=== PATIENT | male | born 1935 | race Caucasian/White ===

== ENCOUNTER → 2016-11-21 | Outpatient (CLI) | payer BC ==
[~2016-11-21] MED LIST: ACYC-147 PO; ASPI81TA28 PO; ATV/1 PO; BENA20TA PO; BIMA0.01 OPB; CETI10TA84 PO; ECON0.05 TOP; NAPR220T40 PO; PANT40TA PO; TADA20TA PO
--- NOTE | 2016-11-21 09:06 | DIAGNOSTIC IMAGING REPORT ---
ABDOMEN COMPLETE (US) CLINICAL HISTORY: 81 years-old Male with NAUSEA, WEIGHT LOSS. TECHNIQUE: Multiple real time sonographic images of the abdomen were obtained assessing mcallister-scale appearance. COMPARISON: CT abdomen and pelvis 04/28/2008. FINDINGS: PANCREAS: The pancreas is partially obscured by bowel gas. The visualized portions of the pancreas are normal without focal lesion or pancreatic duct dilatation. LIVER: 2 separate cysts or alternatively a cyst with thin internal septations is seen within the left lobe of liver, 2.1 x 1.4 x 1.4 cm with increased through transmission. Multiple cysts were also seen within the liver on comparison study 04/28/2008. Liver otherwise appears unremarkable . There is no ascites. GALLBLADDER: There is minimal layering sludge within the gallbladder lumen. Echogenic nonshadowing focus along the dependent gallbladder wall is seen, 0.2 cm. No gallbladder wall thickening or pericholecystic fluid. The common bile duct measures 0.3 cm. RIGHT KIDNEY: The right kidney measures 10.5 cm. There is mild lobulation and increased echogenicity of the kidney. There is a 0.8 cm slightly exophytic cyst of the superior pole right kidney. Similar-appearing lesion is seen within the inferior pole, 1.0 cm. No nephrolithiasis or hydronephrosis. LEFT KIDNEY: The left kidney measures 10.3 cm. There is mild lobulation and increased echogenicity of the kidney. 0.4 cm slightly exophytic cyst of the interpolar left kidney is noted. No nephrolithiasis or hydronephrosis. SPLEEN: The spleen measures 14.0 cm and is normal in echotexture. No focal lesions are identified. VASCULATURE: Proximal abdominal aorta measures 2.2 cm. Mid abdominal aorta measures 1.8 cm. Distal abdominal aorta measures 1.7 cm. No abdominal aortic aneurysm identified. There is mild atherosclerotic plaquing at the aortic bifurcation. IVC is patent. IMPRESSION: 1. Mild layering gallbladder sludge with 2 mm echogenic non-shadowing focus along the dependent gallbladder wall suggests a small stone or gallbladder polyp. No sonographic evidence of acute cholecystitis. 2. No biliary ductal dilatation. 3. Redemonstration of hepatic cysts. 4. Mild splenomegaly. The above report was generated using voice recognition software. It may contain grammatical, syntax or spelling errors. Electronically signed by: Garcia Yanez M.D. 11/21/2016 9:05 AM Dictated Date/Time: 11/21/2016 8:57 AM
== END | disposition home or self-care (01) ==
LOC: C.ULTRBC 08:05
PROVIDERS: ATTEND Family Medicine
DX: R10.9 Unspecified abdominal pain (principal); K22.70 Barrett's esophagus without dysplasia; D50.9 Iron deficiency anemia, unspecified

== ENCOUNTER → 2017-08-06 | Outpatient (CLI) | payer BC ==
--- NOTE | 2017-08-06 15:01 | DIAGNOSTIC IMAGING REPORT ---
TWO VIEW CHEST CLINICAL HISTORY: Fatigue. Weight loss. FINDINGS: PA and lateral chest radiographs are compared to study dated 06/24/2013. The heart is top normal for projection and there is atherosclerotic calcification of the thoracic aorta. The pulmonary vasculature is noncongested. Chronic interstitial thickening is similar to previous. Bibasilar scarring versus atelectasis is noted. No airspace consolidation or pleural effusion is identified. There is no pneumothorax. The skeletal structures are osteopenic. Degenerative change is seen throughout the thoracic spine. IMPRESSION: No active disease in the chest. Electronically signed by: Alfonso Duke M.D. 08/06/2017 3:00 PM Dictated Date/Time: 08/06/2017 2:59 PM
[2017-08-06 15:32] LABS: HEMATOCRIT 45.6 % (42-52); HEMOGLOBIN 15.9 g/dL (14.0-18.0); MEAN CELL VOLUME 97.4 fL (80-100); MEAN CORPUSCULAR HGB CONC 34.9 g/dl (32-36); MEAN PLATELET VOLUME 11.2 fL (7.4-10.4); PLATELET COUNT 110 K/uL (130-400); RED CELL DISTRIBUTION WIDTH CV 14.1 % (11.5-14.5); RED CELL DISTRIBUTION WIDTH SD 50.6 fL (36.4-46.3); WHITE BLOOD COUNT 6.44 K/uL (4.8-10.8)
[2017-08-06 15:53] LABS: ALBUMIN 3.1 gm/dl (3.4-5.0); ALT/SGPT 31 U/L (12-78); AST/SGOT 28 U/L (15-37); BLOOD UREA NITROGEN 37 mg/dl (7-18); CALCIUM 8.6 mg/dl (8.5-10.1); CARBON DIOXIDE 20 mmol/L (21-32); CREATININE 1.88 mg/dl (0.60-1.40); GLUCOSE 187 mg/dl (70-99); POTASSIUM 4.6 mmol/L (3.5-5.1); SODIUM 138 mmol/L (136-145)
[2017-08-06 15:56] LABS: ALKALINE PHOSPHATASE 105 U/L (45-117); TOTAL PROTEIN 6.6 gm/dl (6.4-8.2)
== END | disposition home or self-care (01) ==
LOC: C.RAD 14:22
PROVIDERS: ATTEND Family Medicine
DX: R53.83 Other fatigue (principal); R63.4 Abnormal weight loss

== ENCOUNTER 2017-08-20 12:22 | Emergency (ER) | payer BC ==
[~2017-08-20] VITALS: Ht 175.3 cm; Wt 80.0 kg
[2017-08-20] MEDS ORDERED: SODIUM CHLORIDE 0.9% 1000ML 1,000 ML IV STA (12:30)
[2017-08-20 12:31] VITALS: TEMP 36.7; Ht 175.3 cm; Wt 80.0 kg
[2017-08-20] MEDS ORDERED: KETO2SHA TOP (12:49)
[2017-08-20] MEDS ORDERED: ACYC400T PO (12:49)
[2017-08-20] MEDS ORDERED: BENA20TA14 PO (12:49)
[2017-08-20] MEDS ORDERED: CARI350T28 PO (12:49)
[2017-08-20 13:18] LABS: BASO % 0.1 %; BASO ABS # 0.01 K/uL (0-0.2); EOS % 2.6 %; HEMATOCRIT 40.4 % (42-52); HEMOGLOBIN 13.8 g/dL (14.0-18.0); IG# 0.01 K/uL (0.00-0.02); LYMPH % 10.4 %; MEAN CELL VOLUME 97.3 fL (80-100); MEAN CORPUSCULAR HEMOGLOBIN 33.3 pg (25-34); MEAN CORPUSCULAR HGB CONC 34.2 g/dl (32-36); MEAN PLATELET VOLUME 10.4 fL (7.4-10.4); MONO % 8.5 %; MONO ABS # 0.65 K/uL (0.11-0.59); NEUT % 78.3 %; NEUT ABS # 6.02 K/uL (1.4-6.5); PLATELET COUNT 112 K/uL (130-400); RED CELL DISTRIBUTION WIDTH CV 13.8 % (11.5-14.5); RED CELL DISTRIBUTION WIDTH SD 49.4 fL (36.4-46.3); WHITE BLOOD COUNT 7.69 K/uL (4.8-10.8)
--- NOTE | 2017-08-20 13:30 | EMERGENCY ROOM VISIT NOTE ---
History Report prepared by Olivia: Matthew Healy Under the Supervision of: Dr. Micah Patel M.D. First contact with patient: 12:27 Stated Complaint: DIARRHEA/ BP MED ISSUE History of Present Illness The patient is a 81 year old male who presents to the Emergency Room via ambulance with complaints of intermittent diarrhea for the past couple of months. Patient states that he typically takes Imodium to relieve his diarrhea. He states that he took 4 Imodium today but it did not relieve the symptoms. He states that he typically has "2-3" episodes of diarrhea a day. He describes the stool as "clear and not bloody". He states that Imodium "stops the diarrhea for a day but then it starts up again". He states today he has had "constant diarrhea". He adds that he did not soil himself today. He states that he drank an Ensure this morning. Patient adds that his blood pressure has been low recently. Patient states that he came to the ER via ambulance because he was shaky this morning. 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 Patient states that he has been eating "some fruits and vegetables". He denies any recent use of antibiotics. He denies using blood thinners. Patient states that his PCP is Dr. Taylor. Pertinent past medical history includes arthritis. Patient states that he had a Chest X-Ray done a couple of weeks ago due to a loss of appetite. He states that it came back "normal". He adds that he a blood test done on that same visit that was "normal but showed low platelets". Patient denies abdominal pain, lightheadedness, chest pain, shortness of breath, fevers, chills, cough, and congestions. Source of History: patient Onset: Past couple of months Position: other (Rectum) Timing: intermittent Associated Symptoms: No fevers, No chills, No cough, No chest pain, No SOB, No abdominal pain Review of Systems See HPI for pertinent positives and negatives. A total of ten systems were reviewed and were otherwise negative. Past Medical & Surgical Medical Problems: (1) Blackwell esophagus (2) Celiac disease (3) GERD (gastroesophageal reflux disease) (4) HTN (hypertension) (5) Neuropathy Family History Diabetes mellitus FH: cancer FH: gallbladder disease FH: heart disease Hypertension Social History Smoking Status: Former Smoker Alcohol Use: occasionally Drug Use: none Marital Status: Housing Status: lives with significant other Occupation Status: retired Current/Historical Medications Scheduled Acyclovir (Acyclovir), 400 MG PO DAILY Aspirin (Aspirin Ec), 81 MG PO DAILY Benazepril (Lotensin), 20 MG PO BID Bimatoprost (Lumigan), 1 DROP OPB HS Carisoprodol (Soma), 700 MG PO HS Cetirizine (Zyrtec), 10 MG PO DAILY Ketoconazole (Topical) (Ketoconazole), 1 APPLN TOP BID Lorazepam (Ativan), 1 MG PO QID Naproxen Sodium (Aleve), 220 MG PO BID Pantoprazole (Protonix), 40 MG PO DAILY Allergies Coded Allergies: Gluten (Unverified Allergy, Severe, GI SYMPTOMS, 08/20/17) Pt has celiac disease. Gabapentin (Unverified Allergy, Unknown, loopy, 08/20/17) Physical Exam Vital Signs Date Time Temp Pulse Resp B/P (MAP) Pulse Ox O2 Delivery O2 Flow Rate FiO2 08/20/17 17:42 87 18 96/65 97 08/20/17 16:30 79 18 131/66 96 Room Air 08/20/17 14:33 88 16 103/74 94 Room Air 08/20/17 13:50 86 16 103/64 96 Room Air 08/20/17 12:38 104 08/20/17 12:31 36.7 103 16 95/56 93 Room Air Physical Exam GENERAL: Awake, alert, fatigue-appearing, in no distress HENT: Normocephalic, atraumatic. Oropharynx unremarkable other than dry mucous membranes. EYES: Normal conjunctiva. Sclera non-icteric. NECK: Supple. No nuchal rigidity. FROM. No JVD. RESPIRATORY: Clear to auscultation. CARDIAC: Regular rate, normal rhythm. Extremities warm and well perfused. Pulses equal. ABDOMEN: Soft, non-distended. No tenderness to palpation. No rebound or guarding. No masses. RECTAL: Deferred. MUSCULOSKELETAL: Chest examination reveals no tenderness. The back is symmetrical on inspection without obvious abnormality. There is no CVA tenderness to palpation. No joint edema. LOWER EXTREMITIES: Calves are equal size bilaterally and non-tender. No edema. No discoloration. NEURO: Normal sensorium. No sensory or motor deficits noted. Normal cerebellar function with [id number], alternating palms, [id number]. SKIN: No rash or jaundice noted. Medical Decision & Procedures ER Provider Diagnostic Interpretation: Radiology results as stated below per my review and radiologist interpretation: CHEST ONE VIEW PORTABLE CLINICAL HISTORY: weakness dyspnea COMPARISON STUDY: 08/06/2017 FINDINGS: Atelectasis versus infiltrate left base. Slight interstitial prominence right base. Lungs otherwise appear clear. IMPRESSION: Atelectasis versus infiltrate left base. Chronic interstitial change right base. The above report was generated using voice recognition software. It may contain grammatical, syntax or spelling errors. Electronically signed by: Linus King M.D. 08/20/2017 1:41 PM ABD/PELVIS NO IV OR ORAL CONT CLINICAL HISTORY: 81 years-old Male presenting with diarrhea for months, abd pain. TECHNIQUE: Multidetector CT of the abdomen and pelvis was performed without the use of intravenous contrast. IV contrast: None. A dose lowering technique was used consistent with the principles of ALARA (as low as reasonably achievable). COMPARISON: 04/28/2008. CT DOSE (mGy.cm): The estimated cumulative dose is 816.36 mGycm. 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 Lung bases: Reticular and bandlike opacities primarily in a dependent distribution at the lung bases increased from prior, possibly atelectasis or scarring. Partially visualized minimal patchy groundglass opacity in the lingula (series 3 image 1). Normal heart size. Coronary artery and aortic valve calcification. No pericardial or pleural effusion. Liver: Normal morphology. Borderline hepatic steatosis by density well-defined hypodense multilobular lesion in the hypoplastic medial left hepatic lobe, indeterminate but likely hepatic cyst or hamartoma. 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 Biliary: No gross biliary ductal dilatation allowing for noncontrast technique. Normal gallbladder. Physiologic distention of the gallbladder. Pancreas: Moderate parenchymal atrophy. Spleen: Normal noncontrast appearance. Adrenal glands: Normal noncontrast appearance. Kidneys and ureters: Multiple hypodensities in the kidneys, indeterminate but likely cysts. Punctate nonobstructing calculus in the left kidney. No hydronephrosis. Minimal nonspecific perinephric fat stranding. Nonobstructing 5 mm calculus in the distal left ureter (series 3 image 348). Bladder: Normal. Pelvic organs: Prostate enlargement likely secondary to benign prostatic hyperplasia. Bowel: Diverticulosis of the proximal sigmoid colon. No significant wall thickening or pericolonic inflammatory change. Diverticula also noted in the descending colon. Fluid in the colon suggests a diarrheal state. Fluid also noted throughout the small bowel. No bowel obstruction. Duodenal diverticulum noted in the descending portion. Peritoneal cavity: No free fluid or intraperitoneal gas. Lymph nodes: No gross lymphadenopathy allowing for noncontrast technique. Vasculature: Atherosclerosis of the normal caliber abdominal aorta. Abdominal wall: Normal. Musculoskeletal: Degenerative changes of the spine. IMPRESSION: 1. Fluid throughout small bowel and colon could suggest a diarrheal state. No evidence of bowel wall thickening or significant inflammatory change allowing for noncontrast technique. The appearance is nonspecific without additional findings. This can be seen in the setting of a nonspecific enteritis, a protein losing enteropathy, celiac disease, or Whipple's disease among other etiologies. 2. Diverticulosis. No evidence of diverticulitis. 3. Nonobstructing 5 mm calculus in the distal left ureter. 4. Additional punctate nonobstructing left renal calculus. 5. Minimal patchy groundglass infiltrates in the lingula, only partially visualized. An infectious etiology is difficult to exclude. 6. Bibasilar atelectasis or scarring suspected. Electronically signed by: Richardson Coles M.D. 08/20/2017 4:56 PM Laboratory Results 08/20/17 13:05 Red Blood Count 4.15, Mean Corpuscular Volume 97.3, Mean Corpuscular Hemoglobin 33.3, Mean Corpuscular Hemoglobin Concent 34.2, Mean Platelet Volume 10.4, Neutrophils (%) (Auto) 78.3, Lymphocytes (%) (Auto) 10.4, Monocytes (%) (Auto) 8.5, Eosinophils (%) (Auto) 2.6, Basophils (%) (Auto) 0.1, Neutrophils # (Auto) 6.02, Lymphocytes # (Auto) 0.80, Monocytes # (Auto) 0.65, Eosinophils # (Auto) 0.20, Basophils # (Auto) 0.01 08/20/17 13:05 Test 08/20/17 12:40 08/20/17 13:05 08/20/17 16:50 Influenza Type A (RT-PCR) Neg for Influ A (NEG) Influenza Type B (RT-PCR) Neg for Influ B (NEG) White Blood Count 7.69 K/uL (4.8-10.8) Red Blood Count 4.15 M/uL (4.7-6.1) Hemoglobin 13.8 g/dL (14.0-18.0) Hematocrit 40.4 % (42-52) Mean Corpuscular Volume 97.3 fL (80-100) Mean Corpuscular Hemoglobin 33.3 pg (25-34) Mean Corpuscular Hemoglobin Concent 34.2 g/dl (32-36) Platelet Count 112 K/uL (130-400) Mean Platelet Volume 10.4 fL (7.4-10.4) Neutrophils (%) (Auto) 78.3 % Lymphocytes (%) (Auto) 10.4 % Monocytes (%) (Auto) 8.5 % Eosinophils (%) (Auto) 2.6 % Basophils (%) (Auto) 0.1 % Neutrophils # (Auto) 6.02 K/uL (1.4-6.5) Lymphocytes # (Auto) 0.80 K/uL (1.2-3.4) Monocytes # (Auto) 0.65 K/uL (0.11-0.59) Eosinophils # (Auto) 0.20 K/uL (0-0.5) Basophils # (Auto) 0.01 K/uL (0-0.2) RDW Standard Deviation 49.4 fL (36.4-46.3) RDW Coefficient of Variation 13.8 % (11.5-14.5) Immature Granulocyte % (Auto) 0.1 % Immature Granulocyte # (Auto) 0.01 K/uL (0.00-0.02) Erythrocyte Sedimentation Rate 21 mm/hr (0-14) Anion Gap 6.0 mmol/L (3-11) Est Creatinine Clear Calc Drug Dose 23.9 ml/min Estimated GFR () 28.7 Estimated GFR (Non- 24.8 BUN/Creatinine Ratio 18.8 (10-20) Lactic Acid Level 1.6 mmol/L (0.4-2.0) Calcium Level 8.5 mg/dl (8.5-10.1) Phosphorus Level 3.6 mg/dl (2.5-4.9) Magnesium Level 1.8 mg/dl (1.8-2.4) Total Bilirubin 0.6 mg/dl (0.2-1) Direct Bilirubin 0.2 mg/dl (0-0.2) Aspartate Amino Transf (AST/SGOT) 21 U/L (15-37) Alanine Aminotransferase (ALT/SGPT) 23 U/L (12-78) Alkaline Phosphatase 93 U/L (45-117) Troponin I < 0.015 ng/ml (0-0.045) C-Reactive Protein 7.89 mg/dl (0-0.29) Total Protein 6.0 gm/dl (6.4-8.2) Albumin 2.6 gm/dl (3.4-5.0) Lipase 41 U/L (73-393) Urine Color DK YELLOW Urine Appearance CLEAR (CLEAR) Urine pH 5.0 (4.5-7.5) Urine Specific [place] 1.020 (1.000-1.030) Urine Protein NEG (NEG) Urine Glucose (UA) NEG (NEG) Urine Ketones NEG (NEG) Urine Occult Blood NEG (NEG) Urine Nitrite NEG (NEG) Urine Bilirubin NEG (NEG) Urine Urobilinogen NEG (NEG) Urine Leukocyte Esterase NEG (NEG) Date/Time Source Procedure Growth Status 08/20/17 16:50 Stool C.difficile Toxin B Gene (PCR) - Final No C. difficile toxin B gene detected Complete Laboratory results reviewed by me Medications Administered Medications (Trade) Dose Ordered Sig/Pramod Route Start Time Stop Time Status Last Admin Dose Admin Sodium Chloride 1,000 ml @ 999 mls/hr Q1H1M STAT IV 08/20/17 12:30 08/20/17 13:30 DC 08/20/17 12:50 999 MLS/HR ECG Per My Interpretation Indication: tachycardia Rate (beats per minute): 101 Rhythm: sinus tachycardia Findings: PAC, no acute ischemic change, other (Left anterior ventricular block ) ED Course 1228: The patient was evaluated in room B6. A complete history and physical exam was performed. 1421: I reassessed the patient. He states that he is feeling better. 1943: I reevaluated the patient. Discussed results and discharge instructions. He verbalized understanding and agreement. The patient is ready for discharge. Medical Decision I reviewed the patient's past medical history, medications, and the nursing notes as described above. Differential diagnosis: Etiologies such as metabolic, infection, hypo/hyperglycemia, electrolyte abnormalities, cardiac sources, intracerebral event, toxicologic, neurologic, as well as others were entertained. The patient is an 81-year-old gentleman who presents to emergency department with diarrhea ongoing for the past couple of months per hpi. On arrival the patient is fatigued appearing but no acute distress, afebrile with stable vital signs. EKG unremarkable. WBC and lactate within normal limits. Creatinine 2.3 up from 1.8 in July consistent with dehydration. ESR and CRP elevated however nonspecific. CT abdomen pelvis demonstrates findings consistent with enteritis. Otherwise, there is a 5 mm nonobstructing ureteral calculus. Patient has no symptoms related to this. UA negative. Patient given IV fluid hydrations and feeling improved. No further episodes of diarrhea while in the emergency department. Patient feeling improved and prefers discharge. Thus plan for close follow-up for repeat BMP. Findings and plan for follow-up reviewed with patient. Patient agreeable and d/c'd per discharge instructions. Medication Reconcilliation Current Medication List: was personally reviewed by me Blood Pressure Screening Patient's blood pressure: Normal blood pressure Blood pressure disposition: Did not require urgent referral Impression Primary Impression: Diarrhea Additional Impressions: Acute on chronic renal insufficiency Dehydration Scribe Attestation The scribe's documentation has been prepared under my direction and personally reviewed by me in its entirety. I confirm that the note above accurately reflects all work, treatment, procedures, and medical decision making performed by me. Departure Information Dispostion Home / Self-Care Referrals Roque Taylor M.D. (PCP) Forms HOME CARE DOCUMENTATION FORM, IMPORTANT VISIT INFORMATION, WORK / SCHOOL INSTRUCTIONS Patient Instructions ED Dehydration, ED Insufficiency Renal, ED Vomiting Diarrhea Nonspecific Ad, My [facility] Additional Instructions Please follow up with your primary care physician in the next 1-3 days for re- evaluation and to repeat your kidney function tests. You were found to have mild dehydration likely due to your chronic diarrhea. Otherwise, your exam, EKG, chest xray, and lab results did not show signs of an emergent condition at this time. Imodium as needed for persistent diarrhea. Minimize your fiber intake. Drink plenty of fluids to ensure hydration. Return to the emergency department for worsening symptoms as described in the accompanying instructions. Problem Qualifiers
[2017-08-20 13:37] LABS: ALBUMIN 2.6 gm/dl (3.4-5.0); ALT/SGPT 23 U/L (12-78); AST/SGOT 21 U/L (15-37); BLOOD UREA NITROGEN 44 mg/dl (7-18); CALCIUM 8.5 mg/dl (8.5-10.1); CARBON DIOXIDE 20 mmol/L (21-32); CREATININE 2.34 mg/dl (0.60-1.40); GLUCOSE 167 mg/dl (70-99); LIPASE 41 U/L (73-393); POTASSIUM 5.3 mmol/L (3.5-5.1); SODIUM 139 mmol/L (136-145)
[2017-08-20 13:40] LABS: ALKALINE PHOSPHATASE 93 U/L (45-117); PHOSPHORUS 3.6 mg/dl (2.5-4.9)
--- NOTE | 2017-08-20 13:42 | DIAGNOSTIC IMAGING REPORT ---
CHEST ONE VIEW PORTABLE CLINICAL HISTORY: weakness dyspnea COMPARISON STUDY: 08/06/2017 FINDINGS: Atelectasis versus infiltrate left base. Slight interstitial prominence right base. Lungs otherwise appear clear. IMPRESSION: Atelectasis versus infiltrate left base. Chronic interstitial change right base. The above report was generated using voice recognition software. It may contain grammatical, syntax or spelling errors. Electronically signed by: Linus King M.D. 08/20/2017 1:41 PM Dictated Date/Time: 08/20/2017 1:40 PM
[2017-08-20 14:01] LABS: INFLUENZA A PCR Neg for Influ A (NEG); INFLUENZA B PCR Neg for Influ B (NEG)
--- NOTE | 2017-08-20 16:57 | DIAGNOSTIC IMAGING REPORT ---
ABD/PELVIS NO IV OR ORAL CONT CLINICAL HISTORY: 81 years-old Male presenting with diarrhea for months, abd pain. TECHNIQUE: Multidetector CT of the abdomen and pelvis was performed without the use of intravenous contrast. IV contrast: None. A dose lowering technique was used consistent with the principles of ALARA (as low as reasonably achievable). COMPARISON: 04/28/2008. CT DOSE (mGy.cm): The estimated cumulative dose is 816.36 mGycm. 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 Lung bases: Reticular and bandlike opacities primarily in a dependent distribution at the lung bases increased from prior, possibly atelectasis or scarring. Partially visualized minimal patchy groundglass opacity in the lingula (series 3 image 1). Normal heart size. Coronary artery and aortic valve calcification. No pericardial or pleural effusion. Liver: Normal morphology. Borderline hepatic steatosis by density well-defined hypodense multilobular lesion in the hypoplastic medial left hepatic lobe, indeterminate but likely hepatic cyst or hamartoma. 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 Biliary: No gross biliary ductal dilatation allowing for noncontrast technique. Normal gallbladder. Physiologic distention of the gallbladder. Pancreas: Moderate parenchymal atrophy. Spleen: Normal noncontrast appearance. Adrenal glands: Normal noncontrast appearance. Kidneys and ureters: Multiple hypodensities in the kidneys, indeterminate but likely cysts. Punctate nonobstructing calculus in the left kidney. No hydronephrosis. Minimal nonspecific perinephric fat stranding. Nonobstructing 5 mm calculus in the distal left ureter (series 3 image 348). Bladder: Normal. Pelvic organs: Prostate enlargement likely secondary to benign prostatic hyperplasia. Bowel: Diverticulosis of the proximal sigmoid colon. No significant wall thickening or pericolonic inflammatory change. Diverticula also noted in the descending colon. Fluid in the colon suggests a diarrheal state. Fluid also noted throughout the small bowel. No bowel obstruction. Duodenal diverticulum noted in the descending portion. Peritoneal cavity: No free fluid or intraperitoneal gas. Lymph nodes: No gross lymphadenopathy allowing for noncontrast technique. Vasculature: Atherosclerosis of the normal caliber abdominal aorta. Abdominal wall: Normal. Musculoskeletal: Degenerative changes of the spine. IMPRESSION: 1. Fluid throughout small bowel and colon could suggest a diarrheal state. No evidence of bowel wall thickening or significant inflammatory change allowing for noncontrast technique. The appearance is nonspecific without additional findings. This can be seen in the setting of a nonspecific enteritis, a protein losing enteropathy, celiac disease, or Whipple's disease among other etiologies. 2. Diverticulosis. No evidence of diverticulitis. 3. Nonobstructing 5 mm calculus in the distal left ureter. 4. Additional punctate nonobstructing left renal calculus. 5. Minimal patchy groundglass infiltrates in the lingula, only partially visualized. An infectious etiology is difficult to exclude. 6. Bibasilar atelectasis or scarring suspected. Electronically signed by: Richardson Coles M.D. 08/20/2017 4:56 PM Dictated Date/Time: 08/20/2017 4:42 PM
[2017-08-20 17:42] VITALS: BP 96/65; PULSE 87; O2SAT 97
== END 2017-08-20 17:42 | disposition home or self-care (01) ==
LOC: EDBD 12:26 → C.EDB 12:27
DX: R19.7 Diarrhea, unspecified (principal); N18.9 Chronic kidney disease, unspecified; E86.0 Dehydration; K21.9 Gastro-esophageal reflux disease without esophagitis; K90.0 Celiac disease; I12.9 Hypertensive chronic kidney disease with stage 1 through stage 4 chronic kidney disease, or unspecified chronic kidney disease; G62.9 Polyneuropathy, unspecified; Z87.891 Personal history of nicotine dependence; Z79.82 Long term (current) use of aspirin; Z79.899 Other long term (current) drug therapy; Z88.8 Allergy status to other drugs, medicaments and biological substances; Z91.018 Allergy to other foods

== ENCOUNTER 2017-12-04 15:43 | Emergency (ER) | payer BC ==
[~2017-12-04] VITALS: Ht 172.7 cm; Wt 76.9 kg
[~2017-12-04 15:43] MED LIST changes: -ACYC-147 PO; +ACYC400T PO; -BENA20TA PO; +BENA20TA14 PO; +CARI350T28 PO; -ECON0.05 TOP; +KETO2SHA TOP; -TADA20TA PO
[2017-12-04 15:45] VITALS: TEMP 36.6; O2SAT 93; Ht 172.7 cm; Wt 76.9 kg
--- NOTE | 2017-12-04 17:03 | DIAGNOSTIC IMAGING REPORT ---
CHEST ONE VIEW PORTABLE CLINICAL HISTORY: weakness COMPARISON STUDY: 08/20/2017 FINDINGS: The heart is normal in size. There are linear by basilar opacities consistent with subsegmental atelectasis. There is no overt failure. There are no pleural effusions.[ IMPRESSION: Moderately extensive bibasilar subsegmental atelectatic changes Electronically signed by: Amor Escobar M.D. 12/04/2017 5:02 PM Dictated Date/Time: 12/04/2017 5:01 PM
[2017-12-04] MEDS ORDERED: SODIUM CHLORIDE 0.9% 500ML 500 ML IV STA ×2 (17:22→18:10)
[2017-12-04 17:26] LABS: ALBUMIN 1.8 gm/dl (3.4-5.0); ALKALINE PHOSPHATASE 136 U/L (45-117); ALT/SGPT 24 U/L (12-78); AST/SGOT 24 U/L (15-37); BLOOD UREA NITROGEN 30 mg/dl (7-18); CALCIUM 7.9 mg/dl (8.5-10.1); CARBON DIOXIDE 24 mmol/L (21-32); CKMB < 1.0 ng/ml (0.5-3.6); CREATININE 1.27 mg/dl (0.60-1.40); GLUCOSE 154 mg/dl (70-99); POTASSIUM 3.9 mmol/L (3.5-5.1); SODIUM 140 mmol/L (136-145)
--- NOTE | 2017-12-04 17:36 | EMERGENCY ROOM VISIT NOTE ---
History Report prepared by Olivia: Valente Freeman Under the Supervision of: Dr. Mike Feliciano M.D. First contact with patient: 16:59 Chief Complaint: WEAKNESS Stated Complaint: TIRED/FATIGUE History of Present Illness The patient is an 82 year old white male with a past medical history of Blackwell' s esophagus, celiac disease, GERD, HTN, neuropathy who presents to the ED with a cc of worsening weakness to his legs beginning a week ago. Positive decreased appetite, trouble swallowing, dry cough, mild ankle swelling. Negative trouble moving his arms, headache, back pain, trouble seeing or hearing, decreased sensation to legs or groin, a history of cancer, nausea, difficulty moving his bowels or urinating. Pt states a history of neuropathy for several years now. He reports he is losing muscle mass in his legs secondary to nerve damage. Pt notes he has been trying to use his legs more. He states for the past week he is too weak to walk. Pt reports he has a decreased appetite and has trouble swallowing solid foods. He notes he has lost 40 pounds over the past few months. Pt reports he followed up with his PCP and neurologist. Pt states a dry cough this week with mild ankle swelling. He reports he quit smoking 51 years ago. Review of EMR states the patient had a recent CT in August; it was unremarkable. Source of History: patient Onset: a week ago Position: leg (bilateral) Quality: other (weakness) Timing: worsening Associated Symptoms: + cough (dry), No headache, No nausea, No back pain Note: Positive decreased appetite, trouble swallowing, mild ankle swelling Negative trouble moving his arms, trouble seeing or hearing, decreased sensation to legs or groin, a history of cancer, difficulty moving his bowels or urinating. Review of Systems See HPI for pertinent positives and negatives. A total of ten systems were reviewed and were otherwise negative. Past Medical & Surgical Medical Problems: (1) Blackwell esophagus (2) Celiac disease (3) GERD (gastroesophageal reflux disease) (4) HTN (hypertension) (5) Neuropathy Family History Diabetes mellitus FH: cancer FH: gallbladder disease FH: heart disease Hypertension Social History Smoking Status: Former Smoker Alcohol Use: occasionally Drug Use: none Marital Status: Housing Status: lives with significant other Occupation Status: retired Current/Historical Medications Scheduled Acyclovir (Acyclovir), 400 MG PO DAILY Aspirin (Aspirin Ec), 81 MG PO DAILY Bimatoprost (Lumigan), 1 DROP OPB HS Carisoprodol (Soma), 700 MG PO HS Cetirizine (Zyrtec), 10 MG PO DAILY Ketoconazole (Topical) (Ketoconazole), 1 APPLN TOP BID Lorazepam (Ativan), 1 MG PO QID Naproxen Sodium (Aleve), 440 MG PO BID Pantoprazole (Protonix), 40 MG PO BID Allergies Coded Allergies: Gluten (Unverified Allergy, Severe, GI SYMPTOMS, 12/04/17) Pt has celiac disease. Gabapentin (Unverified Allergy, Unknown, loopy, 12/04/17) Physical Exam Vital Signs Date Time Temp Pulse Resp B/P (MAP) Pulse Ox O2 Delivery O2 Flow Rate FiO2 12/04/17 19:51 85 14 115/72 94 12/04/17 18:30 88 20 106/68 95 Room Air 12/04/17 17:35 93 18 97/64 95 Room Air 12/04/17 16:06 97 12/04/17 15:45 36.6 76 18 111/61 93 Room Air 12/04/17 15:45 93 Room Air Physical Exam GENERAL: Awake, alert, thin-appearing, NAD. Wearing glasses HENT: Normocephalic, atraumatic. EYES: Normal conjunctiva. Sclera non-icteric. PERRL. No anisocoria. NECK: Supple. No nuchal rigidity. FROM. RESPIRATORY: CTAB, no rhonchi, wheezing, crackles CARDIAC: RRR, no MRG ABDOMEN: Soft, NTND, BS+ MSK: No chest wall TTP, no LE edema NEURO: GCS 15, CN 2-12 intact, moves all 4s on command. 4/5 strength to the LE. No saddle anesthesia or sensory deficits. SKIN: No rash or jaundice noted. Medical Decision & Procedures ER Provider Diagnostic Interpretation: Radiology results as stated below per my review and radiologist interpretation: CHEST ONE VIEW PORTABLE CLINICAL HISTORY: weakness COMPARISON STUDY: 08/20/2017 FINDINGS: The heart is normal in size. There are linear by basilar opacities consistent with subsegmental atelectasis. There is no overt failure. There are no pleural effusions.[ IMPRESSION: Moderately extensive bibasilar subsegmental atelectatic changes Electronically signed by: Amor Escobar M.D. 12/04/2017 5:02 PM Dictated Date/Time: 12/04/2017 5:[address] HEAD WITHOUT CONTRAST (CT) CLINICAL HISTORY: Lower extremity weakness COMPARISON STUDY: No previous studies for comparison. TECHNIQUE: Axial CT of the brain is performed from the vertex to the skull base. IV contrast was not administered for this examination. A dose lowering technique was utilized adhering to the principles of ALARA. CT DOSE: 729.78 mGycm FINDINGS: No intra or extra-axial mass lesions are visualized. There is no CT evidence of acute cortical infarction. There is no evidence of midline shift. There is no acute hemorrhage. No calvarial fractures are visualized. There are minor white matter hypodensities likely on a small vessel basis. There is no evidence of pathologic ventricular dilatation. There is no evidence of acute sinusitis IMPRESSION: No acute intracranial findings Electronically signed by: Amor Escobar M.D. 12/04/2017 5:51 PM Dictated Date/Time: 12/04/2017 5:50 PM Laboratory Results 12/04/17 17:37 Red Blood Count 4.55, Mean Corpuscular Volume 96.5, Mean Corpuscular Hemoglobin 32.3, Mean Corpuscular Hemoglobin Concent 33.5, Mean Platelet Volume 11.4, Neutrophils (%) (Auto) 75.4, Lymphocytes (%) (Auto) 11.5, Monocytes (%) (Auto) 11.6, Eosinophils (%) (Auto) 1.2, Basophils (%) (Auto) 0.0, Neutrophils # (Auto ) 5.67, Lymphocytes # (Auto) 0.86, Monocytes # (Auto) 0.87, Eosinophils # (Auto ) 0.09, Basophils # (Auto) 0.00 12/04/17 16:40 Test 12/04/17 16:40 12/04/17 17:37 Anion Gap 8.0 mmol/L (3-11) Est Creatinine Clear Calc Drug Dose 41.9 ml/min Estimated GFR () 59.7 Estimated GFR (Non- 51.5 BUN/Creatinine Ratio 23.6 (10-20) Calcium Level 7.9 mg/dl (8.5-10.1) Total Bilirubin 0.9 mg/dl (0.2-1) Aspartate Amino Transf (AST/SGOT) 24 U/L (15-37) Alanine Aminotransferase (ALT/SGPT) 24 U/L (12-78) Alkaline Phosphatase 136 U/L (45-117) Total Creatine Kinase 19 U/L (39-308) Creatine Kinase MB < 1.0 ng/ml (0.5-3.6) Creatine Kinase MB Ratio (0-3.0) Troponin I < 0.015 ng/ml (0-0.045) Total Protein 5.0 gm/dl (6.4-8.2) Albumin 1.8 gm/dl (3.4-5.0) Globulin 3.2 gm/dl (2.5-4.0) Albumin/Globulin Ratio 0.6 (0.9-2) Thyroid Stimulating Hormone (TSH) 1.660 uIu/ml (0.300-4.500) White Blood Count 7.51 K/uL (4.8-10.8) Red Blood Count 4.55 M/uL (4.7-6.1) Hemoglobin 14.7 g/dL (14.0-18.0) Hematocrit 43.9 % (42-52) Mean Corpuscular Volume 96.5 fL (80-100) Mean Corpuscular Hemoglobin 32.3 pg (25-34) Mean Corpuscular Hemoglobin Concent 33.5 g/dl (32-36) Platelet Count 67 K/uL (130-400) Mean Platelet Volume 11.4 fL (7.4-10.4) Neutrophils (%) (Auto) 75.4 % Lymphocytes (%) (Auto) 11.5 % Monocytes (%) (Auto) 11.6 % Eosinophils (%) (Auto) 1.2 % Basophils (%) (Auto) 0.0 % Neutrophils # (Auto) 5.67 K/uL (1.4-6.5) Lymphocytes # (Auto) 0.86 K/uL (1.2-3.4) Monocytes # (Auto) 0.87 K/uL (0.11-0.59) Eosinophils # (Auto) 0.09 K/uL (0-0.5) Basophils # (Auto) 0.00 K/uL (0-0.2) RDW Standard Deviation 52.2 fL (36.4-46.3) RDW Coefficient of Variation 14.7 % (11.5-14.5) Immature Granulocyte % (Auto) 0.3 % Immature Granulocyte # (Auto) 0.02 K/uL (0.00-0.02) Platelet Estimate DECREASED Echinocytes 2+ Phosphorus Level 1.9 mg/dl (2.5-4.9) Magnesium Level 2.0 mg/dl (1.8-2.4) Laboratory results reviewed by me Medications Administered Medications (Trade) Dose Ordered Sig/Pramod Route Start Time Stop Time Status Last Admin Dose Admin Sodium Chloride 500 ml @ 500 mls/hr Q1H STAT IV 12/04/17 17:22 12/04/17 18:21 DC 12/04/17 17:35 500 MLS/HR Sodium Chloride 500 ml @ 500 mls/hr Q1H STAT IV 12/04/17 18:10 12/04/17 19:09 DC 12/04/17 18:23 500 MLS/HR Calcium Carbonate (Tums Chew Tab) 1,500 mg ONE STAT PO 12/04/17 18:10 12/04/17 18:11 DC 12/04/17 18:45 1,500 MG ECG Per My Interpretation Indication: weakness Rate (beats per minute): 95 Rhythm: sinus rhythm Findings: Q waves (Inferior), left axis deviation, other (Normal intervals.) Comparison ECG Date: 08/20/2017 Change: Rate improved otherwise unchanged. ED Course 171: The patient was evaluated in room C11B. A complete history and physical exam was performed. 1917: I reevaluated the patient. I informed him case management will be into talk to with him. Discussed results and discharge instructions: he verbalized understanding and agreement. The patient is ready for discharge after case management speaks with him. Medical Decision The patient is an 82 year old white male with a past medical history of Blackwell' s esophagus, celiac disease, GERD, HTN, neuropathy who presents to the ED with a cc of worsening weakness to his legs beginning a week ago. Nursing notes reviewed. Ancillary studies and prior records reviewed. Differential diagnosis: Etiologies such as metabolic, infection, hypo/hyperglycemia, electrolyte abnormalities, cardiac sources, intracerebral event, toxicologic, neurologic, as well as others were entertained. Patient was seen and evaluated the bedside. The patient is complaining some generalized weakness primarily worse in his lower extremities. The patient has had some profound weight loss over the last several months of approximately 40 pounds. Patient has seen his neurologist states that this is related to nerve damage. The patient does have some mildly decreased strength in his lower extremities but no sensory deficits no saddle anesthesia no back pain. Patient did have a CT of the abdomen pelvis that was negative acute. Patient did blood work completed, EKG, troponin, chest x-ray, CT the brain along with IV fluids. Of note the patient does have a mildly elevated BUN to creatinine ratio. Patient was given additional fluids. Mild low calcium so was given calcium replacement. Patient denies any back pain or saddle anesthesia less likely to be spinal cord impingement. May truly be related to the patient's worsening neuropathy. Patient CT brain negative acute. Chest x- ray shows atelectatic change. Upon reassessment the patient was feeling much improved. Per family at the bedside the patient does feel improved. The patient's blood pressures improved. Patient does have some low protein which I believe is related to malnutrition. We did discuss increasing caloric intake as well as fluid intake at the bedside. I did have the leather case finisher discussed with the patient about the possibility PTOT your additional rehab either in-home or out of home. I do not believe that the patient requires further imaging at this time as the patient states that he has been seen by neurology and had a fairly exhaustive workup as an outpatient. Patient again denies any back pain saddle anesthesia. Given the chronicity of symptoms I do not believe this is likely GBS or ascending lower extremity paralysis. Patient still does emulate with the use of a walker. The patient does have some generalized weakness which may certainly be related to his neuropathy as well as some deconditioning and poor nutrition. Patient was given strict follow-up, discharge, and return precautions. All questions were answered. Patient was deemed suitable for outpatient follow-up at this time. Patient agreed with the plan of care and was safely discharged home. Medication Reconcilliation Current Medication List: was personally reviewed by me Blood Pressure Screening Patient's blood pressure: Normal blood pressure Blood pressure disposition: Did not require urgent referral Impression Primary Impression: Generalized weakness Additional Impressions: Physical deconditioning Protein malnutrition Dehydration Thrombocytopenia Scribe Attestation The scribe's documentation has been prepared under my direction and personally reviewed by me in its entirety. I confirm that the note above accurately reflects all work, treatment, procedures, and medical decision making performed by me. Departure Information Dispostion Home / Self-Care Referrals Roque Taylor M.D. (PCP) Forms HOME CARE DOCUMENTATION FORM, IMPORTANT VISIT INFORMATION Patient Instructions Dehydration, My [employer] Additional Instructions Please return to the emergency department if you have worsening or recurrent symptoms not amenable to at-home treatment. Please call for a follow-up appointment with her primary care physician. Please take your medications as prescribed. If you have other concerns and/or complaints please feel free to also call your primary care physician's office or return the ED for further evaluation, management, and treatment. You may take tylenol 650 mg every 6 hours as needed for pain/fever unless told by your physician to not take it or have liver problems. Please continue to do breathing exercises in order to expand the lungs. Please do discuss treatment options for possible physical occupational therapy or rehab to help with her strength. Please make sure that you are hydrating with clear liquids and increasing the protein in her diet. Please follow-up with your PCP for further counseling. Take your medications as prescribed. You have been examined and treated today on an emergency basis only. This is not a substitute for, or an effort to provide, complete comprehensive medical care. It is impossible to recognize and treat all injuries or illnesses in a single emergency department visit. It is therefore important that you follow up closely with [facility], your PCP, and/or your specialist(s). Call as soon as possible for an appointment. Thank you for your time and consideration. I look forward to speaking with you again soon. Please don't hesitate to call us if you have any questions. Problem Qualifiers
--- NOTE | 2017-12-04 17:52 | DIAGNOSTIC IMAGING REPORT ---
CT HEAD WITHOUT CONTRAST (CT) CLINICAL HISTORY: Lower extremity weakness COMPARISON STUDY: No previous studies for comparison. TECHNIQUE: Axial CT of the brain is performed from the vertex to the skull base. IV contrast was not administered for this examination. A dose lowering technique was utilized adhering to the principles of ALARA. CT DOSE: 729.78 mGycm FINDINGS: No intra or extra-axial mass lesions are visualized. There is no CT evidence of acute cortical infarction. There is no evidence of midline shift. There is no acute hemorrhage. No calvarial fractures are visualized. There are minor white matter hypodensities likely on a small vessel basis. There is no evidence of pathologic ventricular dilatation. There is no evidence of acute sinusitis IMPRESSION: No acute intracranial findings Electronically signed by: Amor Escobar M.D. 12/04/2017 5:51 PM Dictated Date/Time: 12/04/2017 5:50 PM
[2017-12-04] MEDS ORDERED: CALCIUM CARBONATE 500 MG CHEWABLE PO STA (18:10)
[2017-12-04 18:28] LABS: PHOSPHORUS 1.9 mg/dl (2.5-4.9)
[2017-12-04 18:37] LABS: EOS % 1.2 %; EOS ABS # 0.09 K/uL (0-0.5); HEMATOCRIT 43.9 % (42-52); HEMOGLOBIN 14.7 g/dL (14.0-18.0); IG# 0.02 K/uL (0.00-0.02); LYMPH % 11.5 %; LYMPH ABS # 0.86 K/uL (1.2-3.4); MEAN CELL VOLUME 96.5 fL (80-100); MEAN CORPUSCULAR HEMOGLOBIN 32.3 pg (25-34); MEAN CORPUSCULAR HGB CONC 33.5 g/dl (32-36); MEAN PLATELET VOLUME 11.4 fL (7.4-10.4); MONO % 11.6 %; MONO ABS # 0.87 K/uL (0.11-0.59); NEUT % 75.4 %; NEUT ABS # 5.67 K/uL (1.4-6.5); PLATELET COUNT 67 K/uL (130-400); RED CELL DISTRIBUTION WIDTH CV 14.7 % (11.5-14.5); RED CELL DISTRIBUTION WIDTH SD 52.2 fL (36.4-46.3); WHITE BLOOD COUNT 7.51 K/uL (4.8-10.8)
[2017-12-04 19:51] VITALS: BP 115/72; PULSE 85; O2SAT 94
== END 2017-12-04 19:51 | disposition home or self-care (01) ==
LOC: EDBD 15:43 → C.EDC 15:44
DX: R53.1 Weakness (principal); E46 Unspecified protein-calorie malnutrition; E86.0 Dehydration; D69.6 Thrombocytopenia, unspecified; K22.70 Barrett's esophagus without dysplasia; K21.9 Gastro-esophageal reflux disease without esophagitis; I10 Essential (primary) hypertension; G62.9 Polyneuropathy, unspecified; Z87.891 Personal history of nicotine dependence; Z83.3 Family history of diabetes mellitus; Z80.9 Family history of malignant neoplasm, unspecified; Z83.79 Family history of other diseases of the digestive system; Z82.49 Family history of ischemic heart disease and other diseases of the circulatory system; Z79.899 Other long term (current) drug therapy; Z79.82 Long term (current) use of aspirin; Z88.8 Allergy status to other drugs, medicaments and biological substances; Z91.018 Allergy to other foods

== ENCOUNTER 2023-09-06 10:29 | Inpatient (IN) ==
--- OUTSIDE RECORDS SUMMARY | 2023-09-06 10:36 | External Medical Summary | Continuity of Care Document ---
Author Name Unknown Organization [address] Address [address] [place], [place] [id number] Care Team Providers Care Door To Door Sales Representative Name Role Phone Annel Newton Primary Care Physician [phone] [id number] Date(s): 06/29/23 - 06/29/[address] [facility] [address] [facility], [address] [place] [address] [phone] Encounter Diagnosis Edema(Discharge Diagnosis) - 06/29/23 Discharge Disposition: Home or Self Care Attending Physician: MD Newton Ravishankar E Referring Physician: MD Newton Ravishankar E Allergies, Adverse Reactions, Alerts Substance Reaction Severity Status Allergy Not found in Search 1 Seasonal allergies Active Glutens GI upset Active 1Seasonal allergies Assessment and Plan Extracted from: Title:Office Visit Note Author:DO Wade Ravin Date:06/29/23 1.Edema Recommend patient continueelevating legs to decrease edema. Continue working with home PT and OT Can use Tylenol as neededfor ankleand can ice the ankle if it continues to bother himwe can address this I recommend that he make an appointment tofollow-up with hisnephrologist. Immunizations Given and Recorded Vaccine Date Status Refusal Reason influenza virus vaccine, inactivated 01/09/23 Give n influenza virus vaccine, inactivated 01/20/22 Give n influenza virus vaccine, inactivated 01/03/21 Give n influenza virus vaccine, inactivated 02/09/20 Give n influenza virus vaccine, inactivated 1 01/26/19 Gi yanira influenza virus vaccine, inactivated 01/12/18 Give n influenza virus vaccine, inactivated 02/05/17 Give n influenza virus vaccine, inactivated 02/12/16 Give n influenza virus vaccine, inactivated 01/09/15 Give n influenza virus vaccine, inactivated 02/21/14 Give n pneumococcal 20-valent conjugate vaccine 06/24/22 Given SARS-CoV-2 mRNA (Pfizer 12+) bivalent 03/04/22 Rec orded SARS-CoV-2 (COVID-19) mRNA BNT-162b2 vax 2 01/23/21 Recorded SARS-CoV-2 (COVID-19) mRNA BNT-162b2 vax 3 07/06/20 Recorded SARS-CoV-2 (COVID-19) mRNA BNT-162b2 vax 4 06/15/20 Recorded tetanus/diphtheria/pertuss, acel (Tdap) 5 03/11/20 Recorded pneumococcal 13-valent vaccine 02/12/16 Given tetanus toxoids-diphtheria, Td (Adult) 08/11/13 Gi yanira 1Early/Late Reason: Patient Not Available/Off Unit 2Result Comment: 2022-01-20: Historical information-source unspecified 3Result Comment: 2020-11-08: Historical information-source unspecified 4Result Comment: 2020-11-08: Historical information-source unspecified 5Result Comment: 2020-05-07: Historical information-source unspecified Medications acyclovir 400 mg oral tablet Start: 04/30/23 13:25:00 EST, See Instructions, Disp# 90 tab, Refills: 3, TAKE 1 TABLET DAILY, Pharmacy: [facility] Start Date: 04/30/23 Status: Ordered Aleve 220 mg oral tablet Start: 09/19/22 14:23:00 EDT, 2 tab, PO, q8h, takes at night for sleep, PRN: as needed for arthritis Start Date: 09/19/22 Status: Ordered atorvastatin 40 mg oral tablet Start: 05/01/23 9:18:00 EST, See Instructions, Disp# 90 tab, Refills: 3, TAKE 1 TABLET AT BEDTIME, Pharmacy: [facility] Start Date: 05/01/23 Status: Ordered Flomax 0.4 mg oral capsule Start: 05/27/23 12:00:00 EST, 1 cap, PO, Daily, Disp# 90 cap, Refills: 3, [facility]acy: [facility] Start Date: 05/27/23 Stop Date: 05/21/24 Status: Ordered folic acid 1 mg oral tablet Start: 03/26/23 11:05:00 EST, See Instructions, Disp# 90 tab, Refills: 3, TAKE 1 TABLET DAILY, Pharmacy: [facility] Start Date: 03/26/23 Status: Ordered gabapentin 400 mg oral capsule Start: 04/29/23 11:13:00 EST, See Instructions, Disp# 270 cap, Refills: 3, TAKE 1 CAPSULE THREE TIMES A DAY, Pharmacy: [facility] Start Date: 04/29/23 Status: Ordered lactobacillus acidophilus oral tablet Start: 01/20/18 14:24:00 EDT, 2 tab, PO, Daily, Disp# 180 tab, Refills: 3, Pharmacy: [facility] Start Date: 01/20/18 Stop Date: 01/15/19 Status: Ordered LORazepam 1 mg oral tablet Start: 11/27/22 14:21:00 EDT, 1 tab, PO, qid, Disp# 360 tab, Refills: 0, PRN: as needed for anxiety, Pharmacy: [facility]/pharmacy #[id number] Start Date: 11/27/22 Status: Ordered Lumigan Start: 05/19/13 14:40:00, 1 drop, both eyes, qPM Start Date: 05/19/13 Status: Ordered Osteo Bi-Flex Start: 01/20/22 12:57:00 EDT, 1 tab, PO, bid Start Date: 01/20/22 Status: Ordered Pancreaze 10,500 units-61,500 units-35,500 units oral delayed release capsule Start: 04/29/23 11:13:00 EST, See Instructions, Disp# 200 cap, Refills: 4, TAKE 1 CAPSULE THREE TIMES A DAY, Pharmacy: [facility] Start Date: 04/29/23 Status: Ordered pantoprazole 40 mg oral delayed release tablet Start: 04/20/23 11:35:00 EST, See Instructions, Disp# 180 tab, Refills: 3, TAKE 1 TABLET TWICE A DAY BEFORE MEALS, Pharmacy: [facility] Start Date: 04/20/23 Status: Ordered ZyrTEC Start: 02/21/14 13:17:00, 10 mg =, PO, Daily Start Date: 02/21/14 Status: Ordered Mental Status 06/29/23 Barriers to Learning one year None evide nt Mandatory Health Literacy Documentation Yes Health Literacy Communication Barriers N ever Primary Language [place] Problem List Condition Confirmation Course Effective Dates Status H ealth Status Informant Alcohol dependence 1 Confirmed Active Anemia Confirmed Active Anxiety Confirmed Active Risk for falls Confirmed Active Kovacs's esophagus Confirmed Active Nevus Confirmed Active Cavitation of lung Confirmed Active CD (celiac disease) Confirmed Active Chronic kidney disease, stage 3 unspecified Confirmed Active Hypertensive kidney disease, stage III Confirmed Active Degenerative disc disease, lumbar Confirmed Active Dizziness and giddiness Confirmed Active Hearing aid worn Confirmed Active Fall at home Confirmed Active Generalized hyperhidrosis Confirmed Active H/O agent [place] exposure Confirmed Active Toxic effect of herbicides and fungicides, accidental (unintentional), sequela Confirmed Active S/P IVC filter Confirmed Active History of SCC (squamous cell carcinoma) of skin Confirmed Active Hypertension Confirmed Active 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 12/04/14 Active Nocturia Confirmed Active BPH associated with nocturia Confirmed Active Proximal limb muscle weakness Confirmed Active Frequent falls Confirmed Active Seasonal allergies Confirmed Active Sequelae of toxic polyneuropathy Confirmed Active Thrombocytopenia 3 Confirmed Active 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 Weight disorder Confirmed Active 1See outside note 06/24/22 Wound Culture Right Forearm Swab 2+MRSA 3See outside note 06/24/22 Diagnosis Diagnosis Type Effective Dates Health Status Clini leonela Service Informant Edema Discharge Diagnosis 06/29/23 Procedures Procedure Date Related Diagnosis Body Site Status Bowel 1 01/21/23 Completed EGD (esophagogastroduodenosc opy) gastric outlet reduction 2, 3 12/31/21 Co mpleted MRI of lumbar spine without contrast 4 02/22/19 Completed EGD (esophagogastroduodenosc opy) gastric outlet reduction 5 02/24/18 Compl eted Upper GI endoscopy 6, 7, 8 02/24/18 Completed Computed tomography of chest without contrast (procedure) 01/14/18 Completed 12 lead ECG (regime/therapy) 12/23/17 Completed Plain chest X-ray (procedure) 12/23/17 Completed CA echo transesophageal 12/21/17 C ompleted Plain chest X-ray (procedure) 12/21/17 Completed Computed tomography angiogra phy of head (procedure) 12/20/17 Completed Computed tomography angiogra phy of neck vessels (procedure) 12/20/17 Complet ed MRI of head (procedure) 12/20/17 C ompleted Gram stain microscopy (procedure) 12/18/17 Completed Identification procedure for living organism (procedure) 12/18/17 Completed Plain chest X-ray (procedure) 12/16/17 Completed Plain chest X-ray (procedure) 12/15/17 Completed Computed tomography of chest without contrast (procedure) 12/14/17 Completed Plain chest X-ray (procedure) 12/14/17 Completed Plain chest X-ray (procedure) 12/13/17 Completed Plain chest X-ray (procedure) 12/12/17 Completed Insertion of Intraluminal De vice into Inferior Vena Cava, Percutaneous Approach 12/07/17 Completed Computed tomography of head without contrast (procedure) 12/04/17 Completed Plain chest X-ray (procedure) 12/04/17 Completed Plain chest X-ray (procedure) 08/20/17 Completed Plain chest X-ray (procedure) 08/06/17 Completed Esophagogastroduodenoscopy 9, 10 05/25/17 Completed Ultrasonography of abdomen (procedure) 11/21/16 Completed Esophagogastroduodenoscopy 11, 12 05/22/16 Completed Esophagogastroduodenoscopy 13, 14 12/07/15 Completed Esophagogastroduodenoscopy 15, 16 08/30/15 Completed Esophagogastroduodenoscopy 17, 18 05/22/15 Completed Esophagogastroduodenoscopy 19, 20, 21 10/16/14 Completed Esophagogastroduodenoscopy [ EGD] with closed biopsy 10/20/11 Completed REMOVAL OF TONSILS 1938 Comple mireya Cataract surgery of left eye Completed Phelps filter 22 Comp leted Surgery 23 Completed NILAY procedure Completed Tonsillectomy and adenoidectomy Completed 1ischemic bowel 2body of reports also includes barretts is 5 cm long and localized mild inflammation characterized by erythema noted in antrum (no path). 3Impression: Esophageal mucosal changes consistent with long-segment Kovacs's esophagus. Viopsied. Small hiatal hernia Gastritis Normal examined duodenum. Pathology: Mild, chronic Kovacs's esophagitis with diffuse intestinal metaplasia is seen. Dysplasia and carecinoma are not seen. The strips of overlying stratified squamous epithelium fail to reveal the changes of chronic reflusesophagitis. 41. Advanced multilevel degenerative changes. Neural foraminal narrowing has progressed at L2-L3 andL3-4 on the left and bilaterally at L4-5. Mass effect on several exiting and transiting nerve rootsas above. 2. Bony edema at the end plates of L4-5 is felt to most likely be degenerative in etiology. 5Impression: Z-line irregular, 35cm from the incisors. Esophageal mucosal changes secondary to established short-segment Kovacs's disease. Viopsied. Small hiagla hernia nomrla stomach normal examined duodenum. Pathology: intestinal type epithelium consistent with kovacs's esophagus. Benigh squamous type mucosa. Negative for dysplasia and malignancy. 6Pathology results: Esophagus, biopsies: 1) Intestinal type epithelium consistent with Kovacs's esophagus. 2) Benign squamous type mucosa. 3) Negative for dysplasia and malignancy. 7Repeat in 3 years 8Z-line irregular, 35 cm from the incisors. Esophageal mucosal changes secondary to established shoert-segment Kovacs's disease. Biopsied. Small hiatal hernia. Normal stomach. Normal examined duodenum 9bx of barretts done, body erytehma, antrum bx 10EGD 1 cm hh, 3 cm BArretts 11EGD Barretts 3 cm bx, HH 3 cm 12path Barretts , neg for dysplasia 13path Barretts but NO dyplasia repeat EGD 6 months. 14EGD with biopsy of lower esophagus, 3 cm HH, 3 CM Barretts 15EGD barretts bx, HH 3 cm, 2nd duod bx 16path duod nl, Barretts indef for dysplasia favor reactive. 17path Barretts indef for dyplasia, duod nl, antrum mild chronic inactive gastritis neg for H.pylori repeat EGD 3 months. 18EGD 2 cm HH, 3 cm Barretts, mild body gastritis, path 2nd duod, antrum, lower esophagus 19path barretts, mild blunting duod but no lymphs so compatible with gluten free diet response 20repeat EGD 3 years 21EGD Barretts 3 cm, 2 cm HH, 2nd duod normal but bx for hx of sprue. 22greenfield filter placed 23oral Vital Signs Most recent to oldest [Reference Range]: 1 Patient Weight 88.2 kg (06/29/23 1:54 PM) Heart Rate 80 bpm (06/29/23 1:54 PM) Respiratory Rate 22 br/min (06/29/23 1:54 PM) Blood Pressure 112/78mmHg (06/29/23 1:54 PM) Social History Social History Type Response Tobacco Former smoker, Cigar ettes 1 Smoking Status Former Smoker, quit > 1 yr Sex Male 1Quit Labor day 1968 F[facility] Outpt Note * MD Newton Ravishankar E: MODIFY MD Newton Ravishankar E: MODIFY, MODIFY Event Display: [facility] Outpt Note Authored Date: [id number] Chief Complaint f/u BLE edema - continues to wear compression socks. no swelling when he wakes up but progresses throughout the day History of Present Illness Prashanth is an 87-year-old malewho presents today again forlower extremity edema. Per chart reviewthis seems to be a chronic issue for the patient. He has lower extremity edema on a daily basisin the morning he does not have edema but throughout the day it develops he does not have any painno redness or erythema on the bilateral lower extremities. He tried compression socksbut they are unable to go past the knee up to the thigh, he has difficult time gettingcompression socks above the thigh. He complains of some lateral ankle pain but no acute trauma or injury. Today in the clinic he denies any shortness of breath or chest pain. Physical Exam PHQ2 Data(Data Documented on:06/29/2023 13:51) Emotional health assessment NEGATIVE GENERAL APPEARANCE: The patient is alert, oriented and in no acute distress. VITALS: As above. HEENT: Head is normocephalic/atraumatic. PERRL, EOM-I. Oropharynx clear without lesions. NECK: Supple without lymphadenopathy. Thyroid wnl. CARDIOVASCULAR: Regular rate and rhythm, no m/r/g. LUNGS: Clear to auscultation bilaterally. No wheezes/rales/rhonchi. ABDOMEN: Soft, nontender, nondistended with normal bowel sounds. No rebound/guarding. EXTREMITIES:+1 pitting edema bilaterally NEUROLOGICAL: Grossly non-focal exam. SKIN: Warm and dry without any rash. Assessment/Plan 1.Edema Recommend patient continueelevating legs to decrease edema. Continue working with home PT and OT Can use Tylenol as neededfor ankleand can ice the ankle if it continues to bother himwe can address this I recommend that he make an appointment tofollow-up with hisnephrologist. Attestation ATTENDING PHYSICIAN ATTESTATION: I saw the patient and confirmed carey portions of the history and physical exam and agree with the resident impression and plan as above. Dr. 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 Risk for falls S/P IVC filter Seasonal allergies Sequelae of toxic polyneuropathy Thrombocytopenia Toxic effect of herbicides and fungicides, accidental (unintentional), sequela Type 2 diabetes mellitus with chronic kidney disease Weight disorder Historical Acute deep venous thrombosis Anorexia BPH loc w/o ur obs/LUTS Controlled diabetes mellitus with diabetic polyneuropathy Diarrhea Elevated fasting glucose Medicare annual wellness visit, subsequent Tinea cruris Trigger finger, left middle finger Trigger thumb of right hand Weight loss Procedure/Surgical History Bowel| Service Date: 01/21/2023EGD (esophagogastroduodenoscopy) gastric outlet reduction| Service Date: 12/31/2021MRI of lumbar spine without contrast| Service Date: 02/22/2019Upper GI endoscopy| Service Date: 02/24/2018EGD (esophagogastroduodenoscopy) gastric outlet reduction| Service Date: 02/24/2018Computed tomography of chest without contrast (procedure)| Service Date: 01/14/2018Plain chest X-ray (procedure)| Service Date: 12/23/201712 lead ECG (regime/therapy)| Service Date: 12/23/2017Plain chest X-ray (procedure)| Service Date: 12/21/2017CA echo transesophageal| Service Date: 12/21/2017MRI of head (procedure)| Service Date: 12/20/2017Computed tomography angiography of neck vessels (procedure)| Service Date: 12/20/2017Computed tomography angiography of head (procedure)| Service Date: 12/20/2017Identification procedure for living organism (pr ocedure)| Service Date: 12/18/2017Gram stain microscopy (procedure)| Service Date: 12/18/2017Plain chest X-ray (procedure)| Service Date: 12/16/2017Plain chest X-ray (procedure)| Service Date: 12/15/2017Computed tomography of chest without contrast (procedure)| Service Date: 12/14/2017 Plain chest X-ray (procedure)| Service Date: 12/14/2017Plain chest X-ray (procedure)| Service Date: 12/13/2017Plain chest X-ray (procedure)| Service Date: 12/12/2017Insertion of Intraluminal Device into Inferior Vena Cava, Percutaneous Approach| Service Date: 12/07/2017Plain chest X-ray (procedure)| Service Date: 12/04/2017Computed tomography of head without contrast (procedure)| Service Date: 12/04/2017Plain chest X-ray (procedure)| Service Date: 08/20/2017Plain chest X-ray (procedure)| Service Date: 08/06/2017Esophagogastroduodenoscopy| Service Date: 05/25/2017Ult rasonography of abdomen (procedure)| Service Date: 11/21/2016Esophagogastroduodenoscopy| ServiceDate: 05/22/2016Esophagogastroduodenoscopy| Service Date: 12/07/2015Esophagogastroduodenoscopy| Service Date: 08/30/2015Esophagogastroduodenoscopy| Service Date: 05/22/2015Esophagogastroduodenoscopy| Service Date: 10/16/2014Esophagogastroduodenoscopy [EGD] with closed biopsy| ServiceDate: 10/20/2011REMOVAL OF TONSILS| Service Date: 1937SurgeryTEE procedureTonsillectomyand adenoidectomyCataract surgery of left eyeGreenfield filter Medications acyclovir(acyclovir 400 mg oral tablet), See Instructions, 3 refills atorvastatin(atorvastatin 40 mg oral tablet), See Instructions, 3 refills bimatoprost ophthalmic(Lumigan), 1 drop, both eyes, qPM cetirizine(ZyrTEC), 10 mg, PO, Daily chondroitin-glucosamine(Osteo Bi-Flex), 1 tab, PO, bid folic acid(folic acid 1 mg oral tablet), See Instructions, 3 refills gabapentin(gabapentin 400 mg oral capsule), See Instructions, 3 refills lactobacillus acidophilus(lactobacillus acidophilus oral tablet), 2 tab, PO, Daily, 3 refills LORazepam(LORazepam 1 mg oral tablet), 1 mg= 1 tab, PO, qid, PRN naproxen(Aleve 220 mg oral tablet), 440 mg= 2 tab, PO, q8h, PRN pancrelipase(Pancreaze 10,500 units-61,500 units-35,500 units oral delayed release capsule), See Instructions, 4 refills pantoprazole(pantoprazole 40 mg oral delayed release tablet), See Instructions, 3 refills tamsulosin(Flomax 0.4 mg oral capsule), 0.4 mg= 1 cap, PO, Daily, 3 refills Allergies Allergy Not found in SearchSeasonal allergies GlutensGI upset Social History Smoking Status Former Smoker, quit > 1 yr Alcohol Frequency:Daily Exercise - Occasional exercise Exercise type:Walking Home/Environment Lives with:Spouse - Comments: Single family dwelling Tobacco - Denies Tobacco Use Use:Former smoker Type:Cigarettes - Comments: Quit 1966 Family History Cancer: Father. Celiac Disease: Daughter. Heart disease: Mother. Hypertension: Father. Pacemaker: Mother. Health Status Family Member(s) Immunizations Vaccine Date Status influenza virus vaccine, inactivated 01/09/2023 Given pneumococcal 20-valent conjugate vaccine 06/24/2022 Given SARS-CoV-2 mRNA (Pfizer 12+) bivalent 03/04/2022 Recorded influenza virus vaccine, inactivated 01/20/2022 Given SARS-CoV-2 (COVID-19) mRNA BNT-162b2 vax 01/23/2021 Recorded Comments : 2022-01-20: Historical information-source unspecified influenza virus vaccine, inactivated 01/03/2021 Given SARS-CoV-2 (COVID-19) mRNA BNT-162b2 vax 07/06/2020 Recorded Comments : 2020-11-08: Historical information-source unspecified SARS-CoV-2 (COVID-19) mRNA BNT-162b2 vax 06/15/2020 Recorded Comments : 2020-11-08: Historical information-source unspecified tetanus/diphtheria/pertuss, acel (Tdap) 03/11/2020 Recorded Comments : 2020-05-07: Historical information-source unspecified influenza virus vaccine, inactivated 02/09/2020 Given influenza virus vaccine, inactivated 01/26/2019 Given Comments : Patient Not Available/Off Unit influenza virus vaccine, inactivated 01/12/2018 Given influenza virus vaccine, inactivated 02/05/2017 Given pneumococcal 13-valent vaccine 02/12/2016 Given influenza virus vaccine, inactivated 02/12/2016 Given influenza virus vaccine, inactivated 01/09/2015 Given influenza virus vaccine, inactivated 02/21/2014 Given tetanus toxoids-diphtheria, Td (Adult) 08/11/2013 Given Recommendations Health Maintenance Pending(in the next year) OverDue Medicare Annual Wellness Visit due02/08/22and every 1year Due Adult COVID-19 Vaccination due06/29/23Unknown Frequency Adult Social Determinants of Health Screening due06/29/23Unknown Frequency Shingles Vaccine due06/29/23One-time only Due In Future Adult Influenza Vaccine not due until10/11/23and every 1year Diabetes Management A1c not due until05/20/24and every 366day Body Mass Index not due until05/27/24and every 366day Satisfied(in the past 1 year) Satisfied Adult Influenza Vaccine on01/09/23.Satisfied by KAMARI Parmar, Ana Rosa Body Mass Index on05/27/23.Satisfied by RHONDA Mcbride Angela Diabetes Management A1c on05/20/23.Satisfied by Contributor_system, [employer] Diabetes Nephropathy Management on10/29/22.Satisfied by Contributor_system, [email or web address] Electronic Signature on File Electronically Reviewed/Signed by: Christian Wade DO Author Signature Dt/Tm:06/29/2023 02:23 PM Resident Division of Sports Medicine Electronically Reviewed/Signed by: Annel Newton MD Cosigner Signature Dt/Tm: 06/29/2023 02:31PM Department of Family Medicine RP Patient Care team information Care Team Personnel Name: MD Newton Ravishankar E Position: Physician Member Role: Primary Care Provider Address: Address: [address] [place] [address] [place] Name: DO De La Torre Sameer Position: Resident Member Role: Lifetime Relationship Address: Address: [address] [facility] [address] [place] [address] [place] Care Team Related Persons Name: MIMI NAQVI Address: home [address] [place] [phone]"
--- OUTSIDE RECORDS SUMMARY | 2023-09-06 10:36 | External Medical Summary | Continuity of Care Document ---
Author Name Unknown Organization [facility] [address] Address [address] [place], [place] [id number] Care Team Providers Care Duralumin Mechanic Name Role Phone Annel Newton Primary Care Physician [phone] [id number] Date(s): 05/20/23 - 05/20/23 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) - Chronic kidney disease, stage 3 unspecified(Final) - Alcohol dependence, uncomplicated(Final) - Repeated falls(Final) - Essential (primary) hypertension(Final) - Discharge Disposition: Home or Self Care Attending Physician: MD Newton Ravishankar E Referring Physician: MD Newton Ravishankar E Allergies, Adverse Reactions, Alerts Substance Reaction Severity Status Allergy Not found in Search 1 Seasonal allergies Active Glutens GI upset Active 1Seasonal allergies Immunizations Given and Recorded Vaccine Date Status [...] Refills: 3, TAKE 1 TABLET DAILY, Pharmacy: [facility] Start Date: 04/30/23 Status: Ordered Aleve 220 mg oral tablet Start: 09/19/22 14:23:00 EDT, 2 tab, PO, q8h, takes at night for sleep, PRN: as needed for arthritis Start Date: 09/19/22 Status: Ordered atorvastatin 40 mg oral tablet Start: 05/01/23 9:18:00 EST, See Instructions, Disp# 90 tab, Refills: 3, TAKE 1 TABLET AT BEDTIME, Pharmacy: [facility] Start Date: 05/01/23 Status: Ordered Flomax 0.4 mg oral capsule Start: 01/09/23 14:10:00 EDT, 1 cap, PO, Daily, Disp# 90 cap, Refills: 3, [facility] Start Date: 01/09/23 Stop Date: 01/04/24 Status: Ordered folic acid 1 mg oral tablet Start: 03/26/23 11:05:00 EST, See Instructions, Disp# 90 tab, Refills: 3, TAKE 1 TABLET DAILY, Pharmacy: [facility] Start Date: 03/26/23 Status: Ordered gabapentin 400 mg oral capsule Start: 04/29/23 11:13:00 EST, See Instructions, Disp# 270 cap, Refills: 3, TAKE 1 CAPSULE THREE TIMES A DAY, Pharmacy: [facility] Start Date: 04/29/23 Status: Ordered lactobacillus acidophilus oral tablet Start: 01/20/18 14:24:00 EDT, 2 tab, PO, Daily, Disp# 180 tab, Refills: 3, Pharmacy: [facility] Start Date: 01/20/18 Stop Date: 01/15/19 Status: Ordered LORazepam 1 mg oral tablet Start: 11/27/22 14:21:00 EDT, 1 tab, PO, qid, Disp# 360 tab, Refills: 0, PRN: as needed for anxiety, Pharmacy: [facility]/pharmacy #[id number] Start Date: 11/27/22 Status: Ordered [...] 1 CAPSULE THREE TIMES A DAY, Pharmacy: [facility] Start Date: 04/29/23 Status: Ordered pantoprazole 40 mg oral delayed release tablet Start: 04/20/23 11:35:00 EST, See Instructions, Disp# 180 tab, Refills: 3, TAKE 1 TABLET TWICE A DAY BEFORE MEALS, Pharmacy: [facility] Start Date: 04/20/23 Status: Ordered ZyrTEC Start: 02/21/14 13:17:00, 10 mg =, PO, Daily Start Date: 02/21/14 Status: Ordered Problem List Condition Confirmation Course Effective Dates Status H ealth Status Informant Alcohol dependence 1 Confirmed Active Anemia Confirmed Active Anxiety Confirmed Active Risk for falls Confirmed Active Kovacs's esophagus Confirmed Active Nevus Confirmed Active Cavitation of lung Confirmed Active CD (celiac disease) Confirmed Active Chronic kidney disease, stage 3 unspecified Confirmed Active Degenerative disc disease, lumbar Confirmed Active Hearing aid worn Confirmed Active Fall at home Confirmed Active H/O agent [place] exposure Confirmed Active S/P IVC filter Confirmed Active History of SCC (squamous cell carcinoma) of skin Confirmed Active Hypertension Confirmed Active 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 12/04/14 Active BPH associated with nocturia Confirmed Active Proximal limb muscle weakness Confirmed Active Frequent falls Confirmed Active Seasonal allergies Confirmed Active Sequelae of toxic polyneuropathy Confirmed Active Thrombocytopenia 3 Confirmed Active Type 2 diabetes mellitus with chronic kidney disease Confirmed Active Weight disorder Confirmed Active 1See outside note 06/24/22 Wound Culture Right Forearm Swab 2+MRSA 3See outside note 06/24/22 Procedures Procedure Date Related Diagnosis Body Site [...] mireya Cataract surgery of left eye Completed Uriel filter 22 Comp leted Surgery 23 Completed [...] hx of sprue. 22greenfield filter placed 23oral Results Laboratory List Name Date Complete Blood Count (CBC) 05/20/23 Comprehensive Metabolic Panel (COMP META B PANEL) 05/20/23 Hemoglobin A1C (HEMOGLOBIN, A1C) 05/20/23 Most recent to oldest [Reference Range]: 1 eGFR CKD-EPI [>60 mL/min/1.73 m2] 67 mL/ min/1.73 m2 1 (05/20/23 3:04 PM) Estimated Average Glucose 100 mg/dL 2 (05/20/23 3:04 PM) Estimated CrCl 51.39 mL/min (05/20/23 3:34 PM) MPV [9.0-12.2 fL] 10.3 fL 3 (05/20/23 3:04 PM) RDW [11.5-14.2 %] 21.7 % *HI* (05/20/23 3:04 PM) Anion Gap [5-14 mmol/L] 6 mmol/L (05/20/23 3:04 PM) Alb [3.5-5.0 g/dL] 2.7 g/dL *LOW* (05/20/23 3:04 PM) Alk Phos [38-126 unit/L] 82 unit/L (05/20/23 3:04 PM) ALT [<50 unit/L] 20 unit/L (05/20/23 3:04 PM) AST [15-46 unit/L] 29 unit/L (05/20/23 3:04 PM) BUN [7-20 mg/dL] 16 mg/dL (05/20/23 3:04 PM) Ca [8.4-10.2 mg/dL] 8.0 mg/dL *LOW* (05/20/23 3:04 PM) Cl- [96-107 mmol/L] 108 mmol/L *HI* (05/20/23 3:04 PM) HCO3 [22-30 mmol/L] 27 mmol/L (05/20/23 3:04 PM) Cret [0.70-1.30 mg/dL] 1.06 mg/dL (05/20/23 3:04 PM) HbA1c [4.0-6.0 %] 5.1 % (05/20/23 3:04 PM) Glu [74-106 mg/dL] 125 mg/dL *HI* (05/20/23 3:04 PM) Hct [39-48 %] 35.1 % *LOW* (05/20/23 3:04 PM) Hgb [13.0-17.0 g/dL] 11.2 g/dL *LOW* (05/20/23 3:04 PM) K [3.5-5.1 mmol/L] 4.4 mmol/L (05/20/23 3:04 PM) MCH [28-33 pg] 29.0 pg (05/20/23 3:04 PM) MCHC [32-36 g/dL] 31.9 g/dL *LOW* (05/20/23 3:04 PM) MCV [81-96 fL] 90.9 fL (05/20/23 3:04 PM) Na [137-145 mmol/L] 141 mmol/L (05/20/23 3:04 PM) Plts [150-350 K/uL] 118 K/uL *LOW* (05/20/23 3:04 PM) RBC [4.40-5.60 M/uL] 3.86 M/uL *LOW* (05/20/23 3:04 PM) T Bili [0.2-1.3 mg/dL] 0.9 mg/dL (05/20/23 3:04 PM) Prot [6.3-8.2 g/dL] 5.5 g/dL *LOW* (05/20/23 3:04 PM) WBC [4.0-10.4 K/uL] 3.98 K/uL *LOW* (05/20/23 3:04 PM) 1Result Comment: Testing Performed By: Dept of Pathology [facility] [address], [address] [facility] [place] [address] 2Result Comment: Testing [facility]formed [facility] [address] [place] [address] 3Result Comment: Testing Performed By: Dept of Pathology [facility] [address], [address] [place] [address], [place] [address] Social History Social History Type Response Tobacco Former smoker, Cigar ettes 1 Smoking Status Former Smoker, quit > 1 yr Sex Male 1Quit Labor day 1968 Patient Care team information Care Team Personnel Name: MD Aman, Annel Russell Position: Physician Member Role: Primary Care Provider Address: Address: [address] [facility] [address] [place] [address] [place] Name: DO De La Torre Sameer Position: Resident Member Role: Lifetime Relationship Address: [place] [address] [place] [address] [place] Care Team Related Persons Name: MIMI NAQVI Address: home [address] [place], [place] [id number]
--- OUTSIDE RECORDS SUMMARY | 2023-09-06 10:36 | External Medical Summary | Continuity of Care Document ---
Author Name Unknown Organization [facility] [address] [place] [address] [address] Address [address] [facility] [place], [place] [id number] Care Team Providers Care Prize Jacker Name Role Phone Annel Newton Primary Care Physician [phone] Encounter [facility] [id number] Date(s): 05/27/23 - 05/27/[address] [facility] [address], [address] [place] [address] [phone] Encounter Diagnosis Chronic kidney disease, stage 3 unspecified(Discharge Diagnosis) - 05/27/23 Hypertension(Discharge Diagnosis) - 05/27/23 Leg edema(Discharge Diagnosis) - 05/27/23 Body mass index [BMI] 29.0-29.9, adult(Discharge Diagnosis) - 05/27/23 BPH associated with nocturia(Discharge Diagnosis) - 05/27/23 Discharge Disposition: Home or Self Care Attending Physician: YULIYA Patel Katy Marie Referring Physician: YULIYA Patel Katy Marie Allergies, Adverse Reactions, Alerts Substance Reaction Severity Status Allergy Not found in Search 1 Seasonal allergies Active Glutens GI upset Active 1Seasonal allergies Assessment and Plan Extracted from: Title:Edema Author:YULIYA Patel Katy Marie Date:05/27/23 1.Chronic kidney disease, stage 3 unspecified Problem isChronic Goal:maintenance Data:_ Plan:last creat on 05/20 was stable 2.Hypertension Problem isChronic Goal:maintenance Data:_ Plan:BP low today, discussed fall risk and return precautions 3.Leg edema Problem isChronic Goal:resolution Data:_ Plan: low protein can tryensure drinks, compression and elevation with Hx of CKD, falls, and low BP patient would be high risk for diuretics. Encouraged to start conservative measures first. Immunizations Given and Recorded Vaccine Date Status [...] Refills: 3, TAKE 1 TABLET DAILY, Pharmacy: [facility] Start Date: 04/30/23 Status: Ordered Aleve 220 mg oral tablet Start: 09/19/22 14:23:00 EDT, 2 tab, PO, q8h, takes at night for sleep, PRN: as needed for arthritis Start Date: 09/19/22 Status: Ordered atorvastatin 40 mg oral tablet Start: 05/01/23 9:18:00 EST, See Instructions, Disp# 90 tab, Refills: 3, TAKE 1 TABLET AT BEDTIME, Pharmacy: [facility] Start Date: 05/01/23 Status: Ordered Flomax 0.4 mg oral capsule Start: 05/27/23 12:00:00 EST, 1 cap, PO, Daily, Disp# 90 cap, Refills: 3, [facility] Start Date: 05/27/23 Stop Date: 05/21/24 Status: Ordered folic acid 1 mg oral tablet Start: 03/26/23 11:05:00 EST, See Instructions, Disp# 90 tab, Refills: 3, TAKE 1 TABLET DAILY, Pharmacy: [facility] Start Date: 03/26/23 Status: Ordered gabapentin 400 mg oral capsule Start: 04/29/23 11:13:00 EST, See Instructions, Disp# 270 cap, Refills: 3, TAKE 1 CAPSULE THREE TIMES A DAY, Pharmacy: [facility] Start Date: 04/29/23 Status: Ordered lactobacillus acidophilus oral tablet Start: 01/20/18 14:24:00 EDT, 2 tab, PO, Daily, Disp# 180 tab, Refills: 3, Pharmacy: [facility] Start Date: 01/20/18 Stop Date: 01/15/19 Status: Ordered LORazepam 1 mg oral tablet Start: 11/27/22 14:21:00 EDT, 1 tab, PO, qid, Disp# 360 tab, Refills: 0, PRN: as needed for anxiety, Pharmacy: [facility]/pharm[facility] #[id number] Start Date: 11/27/22 Status: [...] 1 CAPSULE THREE TIMES A DAY, Pharmacy: [facility] Start Date: 04/29/23 Status: Ordered pantoprazole 40 mg oral delayed release tablet Start: 04/20/23 11:35:00 EST, See Instructions, Disp# 180 tab, Refills: 3, TAKE 1 TABLET TWICE A DAY BEFORE MEALS, [facility]acy: [facility] Start Date: 04/20/23 Status: Ordered ZyrTEC Start: 02/21/14 13:17:00, 10 mg =, PO, Daily Start Date: 02/21/14 Status: Ordered Mental Status 05/27/23 Mandatory Health Literacy Documentation Yes Health Literacy Communication Barriers N ever Primary Language [place] Problem List Condition Confirmation Course Effective Dates [...] Fall at home Confirmed Active H/O agent Crenshaw exposure Confirmed Active S/P IVC filter Confirmed [...] Diagnosis Diagnosis Type Effective Dates Health Status Clinical Service Informant BPH associated with nocturia Discharge Diagnosis 05/27/23 Non-Specified Leg edema Discharge Diagnosis 05/27/23 Body mass index [BMI] 29.0-29.9, adult Discharge Diagnosis 05/27/23 Non-Specified Chronic kidney disease, stage 3 unspecified Discharge Diagnosis 05/27/23 Hypertension Discharge Diagnosis 05/27/23 Procedures Procedure Date Related Diagnosis Body Site [...] mireya Cataract surgery of left eye Completed Sanborn filter 22 Comp leted Surgery 23 Completed [...] effect on several exiting and transiting nerve roots as above. 2. Bony edema at the end [...] Most recent to oldest [Reference Range]: 1 Height 173 cm (05/27/23 11:43 AM) Patient Weight 88.6 kg (05/27/23 11:43 AM) Body Mass Index 29.6 kg/m2 (05/27/23 11:43 AM) Temperature [36.5-37.9 DegC] 35.6 DegC *LOW* (05/27/23 11:43 AM) Heart Rate 90 bpm (05/27/23 11:43 AM) Respiratory Rate 16 br/min (05/27/23 11:43 AM) Blood Pressure 94/56mmHg (05/27/23 11:43 AM) Social History Social History Type Response Tobacco Former smoker, Cigar ettes 1 Smoking Status Former Smoker, quit > 1 yr Sex Male 1Quit Labor day 1968 FCM Outpt Note * YULIYA Patel, [place]: PERFORM Event Display: FCM Outpt Note Authored Date: Chief Complaint swelling in bilateral calfs and ankle edema- History of Present Illness Prashanth is an 87 year old male who presents today for edema Has always had edema per his reports, feels that it is getting worse over the last week Gets better in the morning unable to wear his shoes No pain had tight socks on which hurt No SOB no CP 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 decreased appetite and feels as though he has trouble swallowing hx of Kovacs's esophagus, he is not interested in further treatment of this at this time. Has not been using his Ativan to sleep Review of Systems A total of 10 systems were reviewed. Pertinent positive and negatives addressed in HPI, all other findings are negative. Physical Exam Vitals & Measurements T:35.6C HR:90(Monitored) RR:16 BP:94/56 SpO2:92% HT:173cm WT:88.600kg(Dosing) WT:88.6kg BMI:29.6 Constitutional: Alert and oriented, No acute distress, Well-appearing, Normal mood and affect Respiratory: Lung sounds are clear, equal chest rise and fall with breathing, no pursed lip breathing Cardiovascular: Heart sounds regular rate and rhythm, without gallop or murmur, +1 edema Musculoskeletal: No weakness, normal gait, no atrophy or abnormal muscle tone Skin: Warm, pink, dry, intact Assessment/Plan 1.Chronic kidney disease, stage 3 unspecified Problem isChronic Goal:maintenance Data:_ Plan:last creat on 05/20 was stable 2.Hypertension Problem isChronic Goal:maintenance Data:_ Plan:BP low today, discussed fall risk and return precautions 3.Leg edema Problem isChronic Goal:resolution Data:_ Plan: low protein can tryensure drinks, compression and elevation with Hx of CKD, falls, and low BP patient would be high risk for diuretics. Encouraged to start conservative measures first. Problem List/Past Medical History Ongoing Alcohol dependence Anemia Anxiety Kovacs's esophagus BPH associated with nocturia Cavitation of lung CD (celiac disease) Chronic kidney disease, stage 3 unspecified Degenerative disc disease, lumbar Fall at home Frequent falls H/O agent Crenshaw exposure Hearing aid worn History of SCC (squamous cell carcinoma) of skin Hypertension MRSA carrier Nevus Proximal limb muscle weakness Risk for falls S/P IVC filter Seasonal allergies Sequelae of toxic polyneuropathy Thrombocytopenia Type 2 diabetes mellitus with chronic kidney disease Weight disorder Historical Acute deep venous thrombosis Anorexia BPH loc w/o ur obs/LUTS Controlled diabetes mellitus with diabetic polyneuropathy Diarrhea Elevated fasting glucose Medicare annual wellness visit, subsequent Tinea cruris Trigger finger, left middle finger Trigger thumb of right hand Weight loss Procedure/Surgical History Bowel (01/21/2023)EGD (esophagogastroduodenoscopy) gastric outlet reduction (12/31/2021)MRI of lumbar spine without contrast (02/22/2019)Upper GI endoscopy (02/24/2018)EGD (esophagogast roduodenoscopy) gastric outlet reduction (02/24/2018)Computed tomography of chest without contrast (procedure) (01/14/2018)Plain chest X-ray (procedure) (12/23/2017)12 lead ECG (regime/therapy) (12/23/2017)Plain chest X-ray (procedure) (12/21/2017)CA echo transesophageal (12/21/2017)MRI of head (procedure) (12/20/2017)Computed tomography angiography of neck vessels (procedure) (12/20/2017)Computed tomography angiography of head (procedure) (12/20/2017)Identification procedure for living organism (procedure) (12/18/2017)Gram stain microscopy (procedure) (12/18/2017)Plain chest X- ray (procedure) (12/16/2017)Plain chest X-ray (procedure) (12/15/2017)Computed tomography of chest without contrast (procedure) (12/14/2017)Plain chest X-ray (procedure) (12/14/2017)Plain chest X-ray (procedure) (12/13/2017)Plain chest X-ray (procedure) (12/12/2017) Insertion of Intraluminal Device into Inferior Vena Cava, Percutaneous Approach (12/07/2017)Plain chest X-ray (procedure) (12/04/2017)Computed tomography of head without contrast (procedure) (12/04/2017)Plain chest X-ray (procedure) (08/20/2017)Plain chest X-ray (procedure) (08/06/2017 )Esophagogastroduodenoscopy (05/25/2017)Ultrasonography of abdomen (procedure) (11/21/2016)Esophagogastroduodenoscopy (05/22/2016)Esophagogastroduodenoscopy (12/07/2015)Esophagogastrodu odenoscopy (08/30/2015)Esophagogastroduodenoscopy (05/22/2015)Esophagogastroduodenoscopy (09/2014)Esophagogastroduodenoscopy [EGD] with closed biopsy (10/20/2011)REMOVAL OF TONSILS (1938)SurgeryTEE procedureTonsillectomy and adenoidectomyCataract surgery of left eyeGreenfield filter Medications [...] due02/08/22and every 1year Due Adult COVID-19 Vaccination due05/27/23Unknown Frequency Adult Social Determinants of Health Screening due05/27/23Unknown Frequency Shingles Vaccine due05/27/23One-time only Due In Future Adult Influenza Vaccine not due until10/11/23and every 1year Diabetic Eye Exam not due until11/11/23and every 366day Diabetes Management A1c not due until05/20/24and every 366day Satisfied(in the past 1 year) Satisfied Adult Influenza Vaccine on01/09/23.Satisfied by KAMARI Parmar, Ana Rosa Body Mass Index on05/27/23.Satisfied by RHONDA Mcbride Angela Diabetes Management A1c on05/20/23.Satisfied by Contributor_system, [employer] [address] Diabetes Nephropathy Management on10/29/22.Satisfied by Contributor_system, [email or web address] Electronic Signature on File CC: Justine Hernandez DO [address] [place] [id number] Electronically Reviewed/Signed by: YULIYA Desai Author Signature Dt/Tm:05/27/2023 12:48 PM Department of Family Medicine [facility] Patient Care team information Care Team Personnel Name: MD Aman, Annel Russell Position: Physician Member Role: Primary Care Provider Address: Address: [address] [place] [id number] [place] Name: DO De La Torre Sameer Position: Resident Member Role: Lifetime Relationship Address: Address: [facility] [address] [address] [place] Care Team Related Persons Name: MIMI NAQVI Address: [address] [phone]
--- OUTSIDE RECORDS SUMMARY | 2023-09-06 10:36 | External Medical Summary | Continuity of Care Document ---
Author Name Unknown Organization [address] Address [address] [place] [address] [place] [id number] Care Team Providers Care Laceworker Name Role Phone Annel Newton Primary Care Physician [phone] Encounter [facility] [id number] Date(s): 03/19/23 - 03/19/[address] [place] [address] [facility], [address] [place] [address] [phone] Encounter Diagnosis Body mass index [BMI] 28.0-28.9, adult(Discharge Diagnosis) - 03/19/23 Anxiety(Discharge Diagnosis) - 03/19/23 History of small bowel obstruction(Discharge Diagnosis) - 03/19/23 Weakness(Discharge Diagnosis) - 03/19/23 Discharge Disposition: Home or Self Care Attending Physician: MD Villegas Michael P Allergies, Adverse Reactions, Alerts Substance Reaction Severity Status Allergy Not found in Search 1 Seasonal allergies Active Glutens GI upset Active 1Seasonal allergies Assessment and Plan Extracted from: Title:Office Visit Note Author:MD Nelly, Demetrius ael P Date:03/19/23 1.Weakness 2.Anxiety 3.History of small bowel obstruction This is a complex [id number] with a significant past medical history ofanxiety disorder,DM type II, hypertension, CKD stage III, BPH, history of alcohol use, history of DVT and PE,peripheral neuropathy,Kovacs's esophaguswho was recently mated forsmall bowel obstruction with small bowel ischemia that requiredmultiple surgeries. He was discharged to short-term rehab and then ultimately home. He has been struggling at home with weaknessand is looking for additional assistance at homefor ADLs. He does currently have PT and OT visiting the home. I do think he would benefit from additional support at home and placed a home health referral. In addition, I do think it is prudent for us to proceed with further laboratory testing to evaluate for any secondary causes of weakness. Orders placed. Will follow-up pending blood test results. He has follow-up with his PCP in2 months. I have spent42 minutes in face to face interaction regarding review of ongoing medical conditions, discussion and counseling regarding diagnostic testing, discussion and counseling regarding treatment recommendations, discussion and counseling regarding management recommendations and non face to face time for chart review and documentation. Immunizations Given and Recorded Vaccine Date Status [...] Medications acyclovir 400 mg oral tablet Start: 05/05/22 17:10:00 EST, See Instructions, Disp# 90 tab, Refills: 3, TAKE 1 TABLET DAILY, Pharmacy: [facility] Start Date: 05/05/22 Status: Ordered Aleve 220 mg oral tablet Start: 09/19/22 14:23:00 EDT, 2 tab, PO, q8h, takes at night for sleep, PRN: as needed for arthritis Start Date: 09/19/22 Status: Ordered atorvastatin 40 mg oral tablet Start: 04/23/22 10:36:00 EST, See Instructions, Disp# 90 tab, Refills: 3, TAKE 1 TABLET AT BEDTIME,Pharmacy: [facility] Start Date: 04/23/22 Status: Ordered Flomax 0.4 mg oral capsule Start: 01/09/23 14:10:00 EDT, 1 cap, PO, Daily, Disp# 90 cap, Refills: 3, [facility] Start Date: 01/09/23 Stop Date: 01/04/24 Status: Ordered folic acid 1 mg oral tablet Start: 03/31/22 13:27:00 EST, See Instructions, Disp# 90 tab, Refills: 3, TAKE 1 TABLET DAILY, Pharmacy: [facility] Start Date: 03/31/22 Status: Ordered gabapentin 400 mg oral capsule Start: 11/29/21 16:30:00 EDT, See Instructions, Disp# 270 cap, Refills: 3, TAKE 1 CAPSULE THREE TIMES A DAY, Pharmacy: [facility] Start Date: 11/29/21 Status: Ordered lactobacillus acidophilus oral tablet Start: 01/20/18 14:24:00 EDT, 2 tab, PO, Daily, Disp# 180 tab, Refills: 3, Pharmacy: [facility] Start Date: 01/20/18 Stop Date: 01/15/19 Status: Ordered LORazepam 1 mg oral tablet Start: 11/27/22 14:21:00 EDT, 1 tab, PO, qid, Disp# 360 tab, Refills: 0, PRN: as needed for anxiety, Pharmacy: [facility]/pharmacy #[id number] Start Date: 11/27/22 Status: Ordered Lumigan Start: 05/19/13 14:40:00, 1 drop, both eyes, qPM Start Date: 05/19/13 Status: Ordered Osteo Bi-Flex Start: 01/20/22 12:57:00 EDT, 1 tab, PO, bid Start Date: 01/20/22 Status: Ordered Pancreaze 10,500 units-61,500 units-35,500 units oral delayed release capsule Start: 04/14/22 14:20:00 EST, See Instructions, Disp# 200 cap, Refills: 4, TAKE 1 CAPSULE THREE TIMES A DAY, Pharmacy: [facility] Start Date: 04/14/22 Status: Ordered pantoprazole 40 mg oral delayed release tablet Start: 04/30/22 7:59:00 EST, See Instructions, Disp# 180 tab, Refills: 3, TAKE 1 TABLET TWICE A DAYBEFORE MEALS, Pharmacy: [facility] Start Date: 04/30/22 Status: Ordered ZyrTEC Start: 02/21/14 13:17:00, 10 mg =, PO, Daily Start Date: 02/21/14 Status: Ordered Mental Status 03/19/23 Barriers to Learning one year None evide nt Mandatory Health Literacy Documentation Yes Health Literacy Communication Barriers N ever Primary Language Argentine Problem List Condition Confirmation Course Effective Dates [...] Fall at home Confirmed Active H/O agent [place] exposure Confirmed Active S/P IVC filter Confirmed Active History of SCC (squamous cell carcinoma) of skin Confirmed Active Hypertension Confirmed Active 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 12/04/14 Active BPH associated with nocturia Confirmed Active Peripheral neuropathy Confirmed Active Proximal limb muscle weakness Confirmed Active Frequent falls Confirmed Active Seasonal allergies Confirmed Active Thrombocytopenia 3 Confirmed Active Type 2 diabetes mellitus with chronic kidney disease Confirmed Active Weight disorder Confirmed Active 1See outside note 06/24/22 Wound Culture Right Forearm Swab 2+MRSA 3See outside note 06/24/22 Diagnosis Diagnosis Type Effective Dates Health Status Clinical Service Informant Anxiety Discharge Diagnosis 03/19/23 History of small bowel obstruction Discharge Diagnosis 03/19/23 Body mass index [BMI] 28.0-28.9, adult Discharge Diagnosis 03/19/23 Non-Specified Weakness Discharge Diagnosis 03/19/23 Non-Specified Procedures Procedure Date Related Diagnosis Body Site [...] mireya Cataract surgery of left eye Completed [place] filter 22 Comp leted Surgery 23 Completed [...] recent to oldest [Reference Range]: 1 Height 175.26 cm (03/19/23 10:39 AM) Patient Weight 86.2 kg (03/19/23 10:39 AM) Body Mass Index 28.06 kg/m2 (03/19/23 10:39 AM) Temperature [36.5-37.9 DegC] 35.5 DegC *LOW* (03/19/23 10:39 AM) Blood Pressure 98/52mmHg (03/19/23 10:39 AM) Cuff Pulse Pressure 46 mmHg (03/19/23 10:39 AM) Social History Social History Type Response Tobacco Former smoker, Cigar ettes 1 Smoking Status Former Smoker, quit within 31 days - 1 yr Sex Male 1Quit Labor day 1968 Medicine Outpt Note * MD Nelly, Sly Bradshaw: PERFORM Event Display: Medicine Outpt Note Authored Date: Chief Complaint F/U meds, needs face to face appt for home health aid, needs assistance with ADL's. Had flu vaccine. History of Present Illness Prashanth Penaloza is an 87 year old male who presents for an acute appointment regarding home health services. He is a patient of Dr. Newton. He has a significant past medical history of anxiety disorder (on chronic benzodiazepines), DM typeII, HTN, CKD stage III, BPH, alcohol use disorder, thrombocytopenia, History of DVT and PE, peripheral neuropathy, Kovacs's esophagus, history of PUD on chronic PPI, history of TIA, celiac disease, p ancreatic insufficiency on replacement enzymes, hyperlipidemia, chronic herpes. He was admitted to [facility] from 01/21 - 02/04/2023 for small bowel obstruction with small bowel ischemia. During his hospitalization he underwent exploratory laparotomy with ultimate placement of a wound VAC (01/22/2020). He returned to the OR on 01/23/2023 for reexploration laparotomy, enterostomy, abdominal washout, and abdominal wall closure. He was transferred to [facility] for short-term rehab on 02/04/2023. He was ultimately discharged on 02/19/2023 back to [facility]. He has been home since. He reports ongoing weakness. He is struggling with activities of daily living. He is currently needing help with bathing and getting out of his wheelchair. He does have arecliner that doesassist him in getting to a standing position. He is able to use a walker at times around the house. He does have physical therapy and Occupational Therapy which have been going to his home and supporting him. His , who was present during the entirety of the exam, also require support with a wheelchair. Review of Systems As per HPI Physical Exam Vitals & Measurements T:35.5C BP:98/52 SpO2:98% HT:175.26cm WT:86.2kg WT:86.200kg(Dosing) BMI:28.06 PHQ2 Data(Data Documented on:03/19/2023 10:37) Emotional health assessment NEGATIVE GEN: Well developed, well nourished, no acute distress; he is sitting comfortably in wheelchair HEENT: NCAT, MMM, EOMI, PERRL CV: RRR, no murmurs, normal S1 and S2 LUNG: Clear to auscultation bilaterally ABD: soft nontender, nondistended, bowel sounds normoactive; surgical scar present that is c/d/i EXT: No c/c/e MSK: Strength in the upper and lower extremities is preserved NEURO: AxOx3, moving all extremities; no focal neurologic deficits; CN II-XII grossly intact Assessment/Plan 1.Weakness 2.Anxiety 3.History of small bowel obstruction This is a complex [id number] with a significant past medical history ofanxiety disorder,DM type II, hypertension, CKD stage III, BPH, history of alcohol use, history of DVT and PE,peripheral neuropathy,Kovacs's esophaguswho was recently mated forsmall bowel obstruction with small bowel ischemia that requiredmultiple surgeries. He was discharged to short-term rehab and thenultimately home. He has been struggling at home with weaknessand is looking for additional assistance at homefor ADLs. He does currently have PT and OT visiting the home. I do think he would benefit from additional support at home and placed a home health referral. In addition, I do think it is prudent for us to proceed with further laboratory testing to evaluate for any secondary causes of weakness. Orders placed. Will follow-up pending blood test results. He has follow-up with his PCP in2 months. I have spent42 minutes in face to face interaction regarding review of ongoing medical conditions, discussion and counseling regarding diagnostic testing, discussion and counseling regarding treatment recommendations, discussion and counseling regarding management recommendations and non face to face time for chart review and documentation. Problem List/Past Medical History Ongoing Alcohol dependence Anemia Anxiety Kovacs's esophagus BPH associated with nocturia Cavitation of lung CD (celiac disease) Chronic kidney disease, stage 3 unspecified Degenerative disc disease, lumbar Fall at home Frequent falls H/O agent [place] exposure Hearing aid worn History of SCC (squamous cell carcinoma) of skin Hypertension MRSA carrier Nevus Peripheral neuropathy Proximal limb muscle weakness Risk for falls S/P IVC filter Seasonal allergies Thrombocytopenia Type 2 diabetes mellitus with chronic [...] Medications acyclovir(acyclovir 400 mg oral tablet), See Instructions atorvastatin(atorvastatin 40 mg oral tablet), See Instructions bimatoprost ophthalmic(Lumigan), 1 drop, both eyes, qPM cetirizine(ZyrTEC), 10 mg, PO, Daily chondroitin-glucosamine(Osteo Bi-Flex), 1 tab, PO, bid folic acid(folic acid 1 mg oral tablet), See Instructions gabapentin(gabapentin 400 mg oral capsule), See Instructions lactobacillus acidophilus(lactobacillus acidophilus oral tablet), 2 tab, PO, Daily, 3 refills LORazepam(LORazepam 1 mg oral tablet), 1 mg= 1 tab, PO, qid, PRN naproxen(Aleve 220 mg oral tablet), 440 mg= 2 tab, PO, q8h, PRN pancrelipase(Pancreaze 10,500 units-61,500 units-35,500 units oral delayed release capsule), See Instructions pantoprazole(pantoprazole 40 mg oral delayed release tablet), See Instructions tamSULOsin(Flomax 0.4 mg oral capsule), 0.4 mg= 1 cap, PO, Daily, 3 refills Allergies Allergy Not found in SearchSeasonal allergies GlutensGI upset Social History Smoking Status Former Smoker, quit within 31 days - 1 yr Alcohol Frequency:Daily Exercise - Occasional [...] due02/08/22and every 1year Due Adult COVID-19 Vaccination due03/19/23Unknown Frequency Shingles Vaccine due03/19/23One-time only Due In Future Adult Influenza Vaccine not due until10/12/23and every 1year Diabetes Management A1c not due until10/30/23and every 366day Diabetic Eye Exam not due until11/11/23and every 366day Satisfied(in the past 1 year) Satisfied Adult Influenza Vaccine on01/09/23.Satisfied by KAMARI Parmar, Ana Rosa Body Mass Index on03/19/23.Satisfied by TRISTIAN Leal, Jagruti Diabetes Management A1c on10/29/22.Satisfied by Contributor_system, [employer] Diabetes Nephropathy Management on10/29/22.Satisfied by Contributor_system, [id number] Electronic Signature on File Electronically Reviewed/Signed by: Sly Villegas MD Author Signature Dt/Tm:03/19/2023 11:23 AM Division of Internal Medicine MPM Patient Care team information Care Team Personnel Name: MD Aman, Annel Russell Position: Physician Member Role: Primary Care Provider Address: Address: [address] [facility] [address] [place] [address] [place] Name: DO De La Torre Sameer Position: Resident Member Role: Lifetime Relationship Address: Address: [address] [place] [address] [address] [place] [address] [place] Care Team Related Persons Name: MIMI NAQVI Address: home [address] [place] [phone]
--- OUTSIDE RECORDS SUMMARY | 2023-09-06 10:36 | External Medical Summary | Continuity of Care Document ---
Author Name Unknown Organization [facility] [address] [facility] 2 Address [address] [id number] Care Team Providers Care Tank Worker Name Role Phone Annel Newton Primary Care Physician [phone] [id number] Date(s): 06/02/23 - 06/02/23 [facility] [address] [facility] [address] [id number] Encounter Diagnosis Seborrheic keratoses(Discharge Diagnosis) - 06/02/23 AK (actinic keratosis)(Discharge Diagnosis) - 06/02/23 Discharge Disposition: Home or Self Care Attending Physician: MD Valenzuela Thomas A Allergies, Adverse Reactions, Alerts Substance Reaction Severity Status Allergy Not found in Search 1 Seasonal allergies Active Glutens GI upset Active 1Seasonal allergies Assessment and Plan Extracted from: Title:Clinical Document Author:MD Nicolas, Shubham Riojas Date:06/02/23 OUTPATIENT NOTE Name: PRASHANTH PENALOZA Patient Number:[id number] : 1935 Date of Service: 06/02/2023 _ Prashanth Penaloza returns for reevaluation. Keratotic papules were treated with cryotherapy on the right and left malar cheek right supraorbital area midline forehead at the hairline right nasal bridge as inflamed seborrheic keratoses at patient request and with his consent. Side effects were discussed. Review of systems medications allergies as noted on the chart. Since his last visit, the patient has used 5-fluorouracil cream on actinic keratoses on the forehead with good response. He may spot treat additional lesions on the cheeks as they occur. Examination reveals pleasant well-nourished white male type I skin is alert and oriented x 3 with normal mood and affect. Examination of the head, neck, reveals findings as noted above, scattered seborrheic keratoses not treated and is otherwise unremarkable. Patient will return in 1 year for reevaluation. Immunizations Given and Recorded Vaccine Date Status [...] Refills: 3, TAKE 1 TABLET DAILY, Pharmacy: [facility] Start Date: 04/30/23 Status: Ordered Aleve 220 mg oral tablet Start: 09/19/22 14:23:00 EDT, 2 tab, PO, q8h, takes at night for sleep, PRN: as needed for arthritis Start Date: 09/19/22 Status: Ordered atorvastatin 40 mg oral tablet Start: 05/01/23 9:18:00 EST, See Instructions, Disp# 90 tab, Refills: 3, TAKE 1 TABLET AT BEDTIME, Pharmacy: [facility] Start Date: 05/01/23 Status: Ordered Flomax 0.4 mg oral capsule Start: 05/27/23 12:00:00 EST, 1 cap, PO, Daily, Disp# 90 cap, Refills: 3, [facility] Start Date: 05/27/23 Stop Date: 05/21/24 Status: Ordered folic acid 1 mg oral tablet Start: 03/26/23 11:05:00 EST, See Instructions, Disp# 90 tab, Refills: 3, TAKE 1 TABLET DAILY, Pharmacy: [facility] Start Date: 03/26/23 Status: Ordered gabapentin 400 mg oral capsule Start: 04/29/23 11:13:00 EST, See Instructions, Disp# 270 cap, Refills: 3, TAKE 1 CAPSULE THREE TIMES A DAY, Pharmacy: [facility] Start Date: 04/29/23 Status: Ordered lactobacillus acidophilus oral tablet Start: 01/20/18 14:24:00 EDT, 2 tab, PO, Daily, Disp# 180 tab, Refills: 3, Pharmacy: [facility] Start Date: 01/20/18 Stop Date: 01/15/19 Status: Ordered LORazepam 1 mg oral tablet Start: 11/27/22 14:21:00 EDT, 1 tab, PO, qid, Disp# 360 tab, Refills: 0, PRN: as needed for anxiety, Pharmacy: [facility]/pharmacy #[id number] Start Date: 11/27/22 Status: [...] 1 CAPSULE THREE TIMES A DAY, Pharmacy: [facility] Start Date: 04/29/23 Status: Ordered pantoprazole 40 mg oral delayed release tablet Start: 04/20/23 11:35:00 EST, See Instructions, Disp# 180 tab, Refills: 3, TAKE 1 TABLET TWICE A DAY BEFORE MEALS, Pharmacy: [facility] Start Date: 04/20/23 Status: Ordered ZyrTEC Start: 02/21/14 13:17:00, 10 mg =, PO, Daily Start Date: 02/21/14 Status: Ordered Mental Status 06/02/23 Barriers to Learning one year None evide nt Mandatory Health Literacy Documentation Yes Health Literacy Communication Barriers N ever Primary Language Ukrainian Problem List Condition Confirmation Course Effective Dates [...] Active Generalized hyperhidrosis Confirmed Active H/O agent [place] exposure Confirmed Active Toxic effect of herbicides [...] Effective Dates Health Status Clinical Service Informant Seborrheic keratoses Discharge Diagnosis 06/02/23 AK (actinic keratosis) Discharge Diagnosis 06/02/23 Procedures Procedure Date Related Diagnosis Body Site [...] hx of sprue. 22greenfield filter placed 23oral Social History Social History Type Response Tobacco Former smoker, Cigar ettes 1 Smoking Status Former Smoker, quit > 1 yr Sex Male 1Quit Labor day 1968 Outpatient Note * MD Nicolas, Matthew Riojas: PERFORM Event Display: .Outpt Note Authored Date: OUTPATIENT NOTE Name: PRASHANTH PENALOZA Patient Number:[id number] : 1935 Date of Service: 06/02/2023 _ Prashanth Penaloza returns for reevaluation. Keratotic papules were treated with cryotherapy on the rightand left malar cheek right supraorbital area midline forehead at the hairline right nasal bridge asinflamed seborrheic keratoses at patient request and with his consent. Side effects were discussed. Review of systems medications allergies as noted on the chart. Since his last visit, the patient has used 5-fluorouracil cream on actinic keratoses on the forehead with good response. He may spot treat additional lesions on the cheeks as they occur. Examination reveals pleasant well-nourished white male type I skin is alert and oriented x 3 with normal mood and affect. Examination of the head, neck, reveals findings as noted above, scattered seborrheic keratoses not treated and is otherwise unremarkable. Patient will return in 1 year for reevaluation. Electronic Signature on File Electronically Reviewed/Signed by: Matthew Valenzuela MD Author Signature Dt/Tm:06/02/2023 02:19 PM Department of Dermatology [facility] Patient Care team information Care Team Personnel Name: MD Aman, Annel Russell Position: Physician Member Role: Primary Care Provider Address: Address: [address] [facility] [address] [place] [address] [place] Name: DO De La Torre Sameer Position: Resident Member Role: Lifetime Relationship Address: Address: [address] [facility] [address] [place] [address] [place] Care Team Related Persons Name: MIMI NAQVI Address: home [address] [place] [phone]
--- OUTSIDE RECORDS SUMMARY | 2023-09-06 10:36 | External Medical Summary | Continuity of Care Document ---
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 Name Role Phone Annel Newton Primary Care Physician [phone] Encounter [facility] [id number] Date(s): 05/15/23 - 05/15/[address] [place] [id number] [facility], [facility] [address] [place] [address] [phone] Encounter Diagnosis Chronic kidney disease, stage 3 unspecified(Discharge Diagnosis) - 05/15/23 Type 2 diabetes mellitus with chronic kidney disease(Discharge Diagnosis) - 05/15/23 Alcohol dependence(Discharge Diagnosis) - 05/15/23 Anxiety(Discharge Diagnosis) - 05/15/23 BPH associated with nocturia(Discharge Diagnosis) - 05/15/23 Kovacs's esophagus(Discharge Diagnosis) - 05/15/23 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(Discharge Diagnosis) - 05/15/23 Hypertension(Discharge Diagnosis) - 05/15/23 Frequent falls(Discharge Diagnosis) - 05/15/23 History of small bowel obstruction(Discharge Diagnosis) - 05/15/23 Discharge Disposition: Home or Self Care Attending Physician: MD Newton Ravishankar E Referring Physician: MD Newton Ravishankar E Allergies, Adverse Reactions, Alerts Substance Reaction Severity Status Allergy Not found in Search 1 Seasonal allergies Active Glutens GI upset Active 1Seasonal allergies Assessment and Plan Extracted from: Title:Office Visit Note Author:MD Newton Ravishan kar E Date:05/15/23 1.Chronic kidney disease, stage 3 unspecified - Repeat labs for surveillance - Chronic stable - Edema later in the day 2.Type 2 diabetes mellitus with chronic kidney disease - Chronic/stable - Due for repeat labs, ordered 3.Alcohol dependence - Chronic/stable - Contributory to overall risk for decline, pt precontemplative 4.Anxiety - Chronic benzodiazepine therapy reviewed with pt, wishes to continue despite risks - No further increases, consider gradual taper as side effects outweigh benefits with increasing age 5.BPH associated with nocturia - Continue tamsulosin - Chronic/stable, alcohol contributory to symptom 6.Kovacs's esophagus - Continue chronic PPI - Chronic/stable 7.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 Time: 40mins 5- pre-visit chart review 30- visit, inclusive of history, exam, and discussion of assessment/plan 5- post-visit documentation/orders/coordination of care Immunizations Given and Recorded Vaccine Date Status [...] Refills: 3, TAKE 1 TABLET DAILY, Pharmacy: [facility] Start Date: 04/30/23 Status: Ordered Aleve 220 mg oral tablet Start: 09/19/22 14:23:00 EDT, 2 tab, PO, q8h, takes at night for sleep, PRN: as needed for arthritis Start Date: 09/19/22 Status: Ordered atorvastatin 40 mg oral tablet Start: 05/01/23 9:18:00 EST, See Instructions, Disp# 90 tab, Refills: 3, TAKE 1 TABLET AT BEDTIME, Pharmacy: [facility] Start Date: 05/01/23 Status: Ordered Flomax 0.4 mg oral capsule Start: 01/09/23 14:10:00 EDT, 1 cap, PO, Daily, Disp# 90 cap, Refills: 3, [facility] Start Date: 01/09/23 Stop Date: 01/04/24 Status: Ordered folic acid 1 mg oral tablet Start: 03/26/23 11:05:00 EST, See Instructions, Disp# 90 tab, Refills: 3, TAKE 1 TABLET DAILY, Pharmacy: [facility] Start Date: 03/26/23 Status: Ordered gabapentin 400 mg oral capsule Start: 04/29/23 11:13:00 EST, See Instructions, Disp# 270 cap, Refills: 3, TAKE 1 CAPSULE THREE TIMES A DAY, Pharmacy: [facility] Start Date: 04/29/23 Status: Ordered lactobacillus acidophilus oral tablet Start: 01/20/18 14:24:00 EDT, 2 tab, PO, Daily, Disp# 180 tab, Refills: 3, Pharmacy: [facility] Start Date: 01/20/18 Stop Date: 01/15/19 Status: Ordered LORazepam 1 mg oral tablet Start: 11/27/22 14:21:00 EDT, 1 tab, PO, qid, Disp# 360 tab, Refills: 0, PRN: as needed for anxiety, Pharmacy: [id number] Start Date: 11/27/22 Status: Ordered Lumigan Start: 05/19/13 14:40:00, 1 drop, both eyes, qPM Start Date: 05/19/13 Status: Ordered Osteo Bi-Flex Start: 01/20/22 12:57:00 EDT, 1 tab, PO, bid Start Date: 01/20/22 Status: Ordered Pancreaze 10,500 units-61,500 units-35,500 units oral delayed release capsule Start: 04/29/23 11:13:00 EST, See Instructions, Disp# 200 cap, Refills: 4, TAKE 1 CAPSULE THREE TIMES A DAY, Pharmacy: [facility] Start Date: 04/29/23 Status: Ordered pantoprazole 40 mg oral delayed release tablet Start: 04/20/23 11:35:00 EST, See Instructions, Disp# 180 tab, Refills: 3, TAKE 1 TABLET TWICE A DAY BEFORE MEALS, Pharmacy: [facility] Start Date: 04/20/23 Status: Ordered ZyrTEC Start: 02/21/14 13:17:00, 10 mg =, PO, Daily Start Date: 02/21/14 Status: Ordered Mental Status 05/15/23 Barriers to Learning one year None evide nt Mandatory Health Literacy Documentation Yes Health Literacy Communication Barriers N ever Primary Language Latvian Problem List Condition Confirmation Course Effective Dates [...] Fall at home Confirmed Active 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 Confirmed Active S/P IVC filter Confirmed [...] Effective Dates Health Status Clinical Service Informant History of small bowel obstruction Discharge Diagnosis 05/15/23 Type 2 diabetes mellitus with chronic kidney disease Discharge Diagnosis 05/15/23 Chronic kidney disease, stage 3 unspecified Discharge Diagnosis 05/15/23 Alcohol dependence Discharge Diagnosis 05/15/23 Anxiety Discharge Diagnosis 05/15/23 BPH associated with nocturia Discharge Diagnosis 05/15/23 Kovacs's esophagus Discharge Diagnosis 05/15/23 Hypertension Discharge Diagnosis 05/15/23 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 Discharge Diagnosis 05/15/23 Frequent falls Discharge Diagnosis 05/15/23 Procedures Procedure Date Related Diagnosis Body Site [...] Most recent to oldest [Reference Range]: 1 Temperature [36.5-37.9 DegC] 36.6 DegC (05/15/23 1:33 PM) Blood Pressure 122/68mmHg (05/15/23 1:33 PM) Cuff Pulse Pressure 54 mmHg (05/15/23 1:33 PM) Social History Social History Type Response Tobacco Former smoker, Cigar ettes 1 Smoking Status Former Smoker, quit > 1 yr Sex Male 1Quit Labor day 1968 [facility] Outpt Note * MD Aman, Annel Russell: PERFORM Event Display: [facility]CM Outpt Note Authored Date: [id number] Chief Complaint Pt here for issues History of Present Illness Prashanth is an 87yoM previously a patient of Dr. Taylor here today for 4 month f/u. He has medical history notable for anxiety disorder on chronic benzodiazepine therapy x many years, DM2, HTN, CKD3, BPH, thrombocytopenia, DVT/PE, peripheral neuropathy, kovacs's esophagus, PUD, TIA, celiac disease, pancreatic insufficiency, hyperlipidemia, and chronic herpes. Last visit with me was 4 months ago 01/16/23, at which point he'd been doing well. In the interim,he was admitted for small bowel obstruction and discharged to home to [facility] ([place]). He had an exploratory laparotomy and needed a wound vac post-operatively. He's still getting back to baseline bowel habits and staying regular. Chronic anxiety has been stable and he's aware of the extensive risks of his regimen but does not wish to cut back or change at this time despite my encouragement. He is comfortable with no furtherincreases and ultimately a gradual taper if side effects begin to outweigh benefits over time. 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 On chronic gabapentin for this and still gets night sweats regularly. Drinks 4oz/day of alcohol ongoing and concurrently suffers from BPH so has had worsening nocturia. Review of Systems 01/24pt ROS reviewed/negative except as noted in HPI. Physical Exam Vitals & Measurements T:36.6C BP:122/68 SpO2:97% PHQ2 Data(Data Documented on:05/15/2023 13:33) Emotional health assessment NEGATIVE GENERAL APPEARANCE: The patient is alert, oriented and in no acute distress. VITALS: As above. HEENT: Head is normocephalic/atraumatic.TMs clear bilat, minimal wax. CARDIOVASCULAR: +2 radial pulses. LUNGS: Respirations even and unlabored. EXTREMITIES: No cyanosis, clubbing or edema. NEUROLOGICAL: Grossly non-focal exam. SKIN: Warm and dry without any rash. Assessment/Plan 1.Chronic kidney disease, stage 3 unspecified - Repeat labs for surveillance - Chronic stable - Edema later in the day 2.Type 2 diabetes mellitus with chronic kidney disease - Chronic/stable - Due for repeat labs, ordered 3.Alcohol dependence - Chronic/stable - Contributory to overall risk for decline, pt precontemplative 4.Anxiety - Chronic benzodiazepine therapy reviewed with pt, wishes to continue despite risks - No further increases, consider gradual taper as side effects outweigh benefits with increasing age 5.BPH associated with nocturia - Continue tamsulosin - Chronic/stable, alcohol contributory to symptom 6.Kovacs's esophagus - Continue chronic PPI - Chronic/stable 7.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 Celiac Disease: [...] due02/08/22and every 1year Due Adult COVID-19 Vaccination due05/15/23Unknown Frequency Adult Social Determinants of Health Screening due05/15/23Unknown Frequency Shingles Vaccine due05/15/23One-time only Due In Future Adult Influenza Vaccine not due until10/11/23and every 1year Diabetes Management A1c not due until10/30/23and every 366day Diabetic Eye Exam not due until11/11/23and every 366day Body Mass Index not due until03/19/24and every 366day Satisfied(in the past 1 year) Satisfied Adult Influenza Vaccine on01/09/23.Satisfied by KAMARI Parmar, Ana Rosa Body Mass Index on03/19/23.Satisfied by TRISTIAN Leal, Jagruti Diabetes Management A1c on10/29/22.Satisfied by Contributor_system, [employer] Diabetes Nephropathy Management on10/29/22.Satisfied by Contributor_system, [email or web address] Electronic Signature on File Electronically Reviewed/Signed by: Annel Newton MD Author Signature Dt/Tm:05/15/2023 02:03 PM Department of Family Medicine [facility] Patient Care team information Care Team Personnel Name: MD Aman, Annel Russell Position: Physician Member Role: Primary Care Provider Address: Address: [address] [place] [address] [place] Name: DO De La Torre Sameer Position: Resident Member Role: Lifetime Relationship [place]: [place] [address] [place] [address] [place] [address] [place] Care Team Related Persons Name: MIMI NAQVI Address: home [address] [place], [place] [id number]
--- NOTE | 2023-09-06 10:45 | Emergency Department Note ---
Impression & Plan Weakness, Elevated troponin, Fall, Pancytopenia, Hypocalcemia, Acute head trauma ED Provider Note NAME: VANESSA MARTIN AGE: 87 SEX: M : 1935 ARRIVES VIA: Ambulance INFORMANT: [Patient][nursing] ED PROVIDER(S): [Alfonso Gonzalez MD] CHIEF COMPLAINT: Fall HISTORY OF PRESENT ILLNESS: The patient is an 87-year-old male who in the last week has had multiple falls. He has noticed increasing fatigue and weakness the last 2 days. He states that today, his legs just seemed to give out and he fell. He has hit his head a few times but there has been no loss of consciousness. He has abrasions to his right posterior shoulder and left posterior arm. He has a contusion to his right hip. He states that despite all the falls, he has not suffered any significant injury. There has been no abdominal pain, no black or bloody stool. No chest pain or shortness of breath. No fever, chills, cough or congestion. Of note, EMS did note increasing pedal edema bilaterally. PMHx/PSHx/Social Hx: See Below PHYSICAL EXAM: GENERAL: Patient is in no acute distress. HEENT: The patient has multiple contusions of different ages about his head and face, no bony step-off that would suggest fracture. No laceration requiring repair. NECK: No stridor, no adenopathy, nontender cervical spine, trachea is midline. LUNGS: Clear to auscultation bilaterally, no wheeze, no rhonchi, breath sounds equal. HEART: 3/6 systolic murmur, rhythm does appear regular. Normal rate ABDOMEN: Soft, nontender, no peritonitis. EXTREMITIES: No cyanosis, full range of motion of all the joints without pain or difficulty. Multiple abrasions and contusions to all extremities. No deformities to suggest bony injury. He does have moderate bilateral pedal edema. NEUROLOGIC: Oriented x 3, no acute motor or sensory deficits, no focal weakness. SKIN: No jaundice, no diaphoresis. Quite pale. Rectal: Light brown stool, trace heme positive. DIFFERENTIAL DIAGNOSIS: Anemia, intra-abdominal bleeding, UTI, bacteremia or sepsis, renal or liver failure, coagulopathy, intracranial bleeding, among others. EMERGENCY DEPARTMENT PROCEDURES: MEDICAL DECISION MAKING: There is a lower white count, hemoglobin and platelet count. I did perform a rectal exam, stool was trace heme positive but brown in color. A mild elevation to the INR was noted with a value of 1.2. There was no renal failure. Calcium was low at 7.8. There were some subtle liver enzyme elevations although, the bilirubin was normal. The patient appeared to be in a euthyroid state. ECG showed a sinus rhythm, no obvious acute ischemia. Cardiac enzyme testing x 1 was slightly elevated. This troponin elevation could be secondary to cardiac injury or potentially mismatch from his fatigue and weakness. Anaplasmosis and Babesia smears were negative. Lyme disease testing was negative. Send out anaplasmosis and Babesia tests are pending. Brain CT showed no acute bleed or mass effect. CT of the abdomen pelvis did not show any areas of intra-abdominal bleeding, there was no acute surgical process. Chest x-ray did not show pneumonia or CHF. On exam, the patient had multiple contusions and abrasions consistent with his recent falling. He was quite pale. The cause for the patient's weakness and falling is not completely clear. I am of course concerned about the possibility of a tickborne illness given his laboratory results, so far, the tick testing has returned unrevealing. Given his falls, given his weakness, given his findings on workup, I do think a stay in the hospital is warranted. Patient was given a 500 cc saline bolus while here in the ED. He did not require anything for pain. He was given IV calcium gluconate because of the lower calcium value. I spoke with the patient and case management, the on-call hospitalist was consulted. Prior/Outside records/notes reviewed: Today's EMS notes describing his presentation and transport to this hospital. ECG per my interpretation: Indication was weakness. The ECG shows a sinus rhythm with a first-degree AV block and some occasional PACs and PVCs. The rate is 76. There is no acute ST elevation. There is poor R wave progression. QTc is 447. Continuous Cardiac Monitoring per my interpretation: An order was placed for continuous cardiac monitoring. The monitor shows a rate of 72 with sinus rhythm with a first-degree block. Imaging/x-ray results per my interpretation: Chest x-ray shows some chronic findings, there was no pneumonia or pneumothorax. Chronic Medical/Social conditions affecting care: Advanced age. Care/Management discussed with: Case management, the on-call hospitalist. Level of care consideration(s): After review of the information above and other included data: --I believe the patient requires escalation of care to admission DISPOSITION: Admission Past Med/Surg History Problem List (Updated 09/06/23 @ 15:50 by Alfonso Gonzalez MD) Acute head trauma (Acute) Hypocalcemia (Acute) Pancytopenia (Acute) Fall (Acute) Elevated troponin (Acute) Weakness (Acute) History of CVA (cerebrovascular accident) Elevated troponin Heme positive stool Hyperlipidemia BPH (benign prostatic hyperplasia) ELHAM (acute kidney injury) H/O abdominal surgery (01/23/23) Re-Exploratoration Laparotomy, Enteroenterostomy, abdominal washout, abdominal Wall Closure (Not Applicable) - Ildefonso Pickens DO Neuropathy (Chronic) HTN (hypertension) (Chronic) GERD (gastroesophageal reflux disease) (Chronic) Blackwell esophagus (Chronic) Bilateral pulmonary embolism (Acute) s/p Uriel Filter Placement by Dr. Nieves Pulmonary emboli SIRS (systemic inflammatory response syndrome) (Acute 06/24/13) Empyema lung (Acute) Acute DVT (deep venous thrombosis) (Acute) Thrombocytopenia (Acute) Anemia Cavitary lesion of lung (Acute) Severe protein-calorie malnutrition (Acute) Aortic stenosis, mild Embolic stroke (Acute) Acid fast bacillus Medical History Hypoxia Sepsis Small bowel infarction Hypotension Small bowel obstruction Blackwell esophagus Encounter for pre-operative examination Alcoholism /alcohol abuse Herpes Pulmonary embolism Empyema, left Hoarseness of voice Herpes Peripheral neuropathy GERD (gastroesophageal reflux disease) Barretts esophagus Cancer SKIN CANCER BCC/SCC Hearing deficit Intraocular pressure increase TAKING LUMIGAN Transient ischemic attack (TIA) DURING HOSPITALIZATION EARLY 2017 ([facility]) Cardiac murmur Deep vein thrombosis hx of Pulmonary embolism Lung infection HOSPITALIZED NOVEMBER-2017 Surgical History (Updated 03/07/23 @ 00:11 by Nusrat Velazquez) History of bowel resection (01/21/23) Exploratory Laparotomy, small bowel resection, placement of abthera wound vac(Not Applicable) - Ildefonso Pickens DO History of tonsillectomy and adenoidectomy History of anesthesia reaction pt states due to ativan use he needs a lot of anesthesia for procedures History of esophagogastroduodenoscopy (EGD) last 02/2018 History of colonoscopy History of tooth extraction History of cataract surgery RT/LEFT History of transesophageal echocardiography (NILAY) [place] filter in place RT LEG Family History Mother Family history of diabetes mellitus Father Family history of reaction to anesthesia "would get mean when he would come out of it" Social History Smoking Status: Former smoker Tobacco Type: Cigarettes Second Hand Exposure: No; Do You Dip or Chew Tobacco: No; Hx Alcohol Use: Yes Alcohol type: hard liquor Hx Substance Use: No Preferred Language: Japanese Communication Ability: Effective [employer] Project [employer] Required: No Beliefs That Will Affect Care: None Current Living Situation: Spouse Feels Safe at Home: Yes Assistive Devices: Cane, Denture - Upper, Glasses, Hearing Aid - Bilateral and Wheelchair Allergies Allergies Allergy/AdvReac Type Severity Reaction Status Date / Time gluten Allergy Severe GI SYMPTOMS Verified 06/14/22 21:15 wheat Allergy Severe gi symptoms Verified 06/14/22 21:15 Home Meds Home Medications Medication Instructions Recorded Confirmed acyclovir 400 mg tablet 400 mg PO DAILY 90 days #90 tabs 08/20/17 09/06/23 bimatoprost 0.01 % eye drops 1 drp ophthalmic (eye) PM 01/22/18 09/06/23 (Lumigan) folic acid 1 mg tablet 1 mg PO QAM 01/22/18 09/06/23 gabapentin 400 mg capsule 400 mg PO TID 02/01/19 09/06/23 lipase 10,500-protease See Rx Instructions .Route .COMPLEX 01/07/21 09/06/23 35,500-amylase 61,500 unit capsule,delayed rel (Pancreaze) pantoprazole 40 mg tablet,delayed 40 mg PO BID 01/07/21 09/06/23 release atorvastatin 40 mg tablet 40 mg PO HS 12/12/21 09/06/23 glucosam 750 mg-chondroi 100 1 tab PO DAILY 01/07/22 09/06/23 mg-hyalur 1.65 mg-CF borate 108 mg tablet ([facility] Layer3 TV) ketoconazole 2 % topical cream 1 applic topical DIRECTED PRN 01/26/22 09/06/23 Skin Irritation tamsulosin 0.4 mg capsule 0.4 mg PO DAILY 01/21/23 09/06/23 MegaRed [place]-3 Krill Oil 1 cap PO DAILY 09/06/23 09/06/23 melatonin 5 mg tablet 5 mg PO HS PRN Sleep 09/06/23 09/06/23 vitamin A-vitamin C-vit E-min 1 tab PO DAILY 09/06/23 09/06/23 tablet Results & Data (ED) Vital Signs Vital Signs - 24 hr 09/06/23 10:41 09/06/23 10:47 09/06/23 12:13 Temperature 36.6 C Temperature Source Oral Pulse Rate 80 70 Pulse Rate [Apical] Pulse Rhythm [Apical] Pulse Strength [Apical] Respiratory Rate 14 Respiratory Effort / Characteristics Non-Labored Respiratory Depth Normal Respiratory Pattern Regular Blood Pressure 128/73 Blood Pressure [Left Arm] Blood Pressure Mean 91 Blood Pressure Mean [Left Arm] Blood Pressure Position [Left Arm] Pulse Oximetry 94 94 Oxygen Delivery Method Room Air Room Air Sepsis Recent Fever Within 48 Hours No Sepsis New/Unexplained Change in Mental Status No Sepsis Action Taken by Nursing No Action Required 09/06/23 12:20 Temperature Temperature Source Pulse Rate Pulse Rate [Apical] 72 Pulse Rhythm [Apical] Regular Pulse Strength [Apical] Normal Respiratory Rate 15 Respiratory Effort / Characteristics Non-Labored Spontaneous Respiratory Depth Normal Respiratory Pattern Regular Blood Pressure Blood Pressure [Left Arm] 142/70 H Blood Pressure Mean Blood Pressure Mean [Left Arm] 94 Blood Pressure Position [Left Arm] Lying Pulse Oximetry 97 Oxygen Delivery Method Room Air Sepsis Recent Fever Within 48 Hours Sepsis New/Unexplained Change in Mental Status Sepsis Action Taken by Residential Medications Current Medication List: was personally reviewed by me Laboratory Data Attestation: I reviewed the patient's lab results. 09/06/23 10:45 09/06/23 10:45 Lab Results 09/06/23 09/06/23 09/06/23 Range/Units 10:45 11:06 12:20 WBC 2.69 L (4.8-10.8) K/ul RBC 3.66 L (4.70-6.10) M/uL Hgb 12.1 L (14.0-18.0) g/dl Hct 36.6 L (42.0-52.0) % MCV 100.0 (80.0-100.0) fL MCH 33.1 (25.0-34.0) pg MCHC 33.1 (32.0-36.0) g/dL RDW Std Deviation 53.0 H (36.4-46.3) fL RDW Coeff of Kostas 14.6 H (11.5-14.5) % Plt Count 86 L (130-400) K/uL MPV 11.1 (9.4-12.4) fL Immature Gran % (Auto) 0.0 % Neut % (Auto) 46.8 % Lymph % (Auto) 41.6 % [place] % (Auto) 8.6 % Eos % (Auto) 2.6 % Baso % (Auto) 0.4 % Neut # (Auto) 1.26 L (1.40-6.50) K/uL Lymph # (Auto) 1.12 L (1.20-3.40) K/uL [place] # (Auto) 0.23 (0.11-0.59) K/uL Eos # (Auto) 0.07 (0.00-0.50) K/uL Baso # (Auto) 0.01 (0.00-0.20) K/uL Immature Gran # (Auto) 0.00 L (0.01-0.20) K/uL PT 12.7 H (9.0-12.0) Seconds INR 1.2 H (0.9-1.1) APTT 25 (21-31) Seconds PTT Ratio 0.9 Sodium 142 (136-145) mmol/L Potassium 4.4 (3.5-5.1) mmol/L Chloride 109 H (98-107) mmol/L Carbon Dioxide 25 (21-32) mmol/L Anion Gap 8 (3-11) BUN 22 (6-23) mg/dl Creatinine 1.11 (0.6-1.4) mg/dl Est Cr Clr Drug Dosing 49.3 ml/min Est GFR ( Amer) 67.9 ml/min Est GFR (Non-Af Amer) 58.6 ml/min BUN/Creatinine Ratio 19.8 (10-20) Glucose 67 L (70-99(Fasting)) mg/dl Lactate 0.8 (0.4-2.0) mmol/L Calcium 7.8 L (8.6-10.3) mg/dl Magnesium 1.7 (1.7-2.4) mg/dl Total Bilirubin 1.0 (0.2-1.0) mg/dl AST 91 H (13-39) U/L ALT 43 (7-52) U/L Alkaline Phosphatase 113 H (34-104) U/L Total Creatine Kinase 120 (30-223) U/L Troponin I High Sens 55.0 H* (0-20) pg/ml Total Protein 5.0 L (6.0-8.3) gm/dl Albumin 2.6 L (3.4-5.0) gm/dl Globulin 2.4 L (2.5-4.0) gm/dl Albumin/Globulin Ratio 1.1 (0.9-2) Vitamin B12 447 (180-914) pg/ml Procalcitonin 41.10 H (0-0.5) ng/ml TSH 4.144 (0.300-4.500) uIu/ml Anaplasma Smear See Comment Babesia Smear See Comment Lyme Disease Screen Negative (Negative) Blood Type A Positive Antibody Screen NEGATIVE 09/06/23 Range/Units 12:28 WBC (4.8-10.8) K/ul RBC (4.70-6.10) M/uL Hgb (14.0-18.0) g/dl Hct (42.0-52.0) % MCV (80.0-100.0) fL MCH (25.0-34.0) pg MCHC (32.0-36.0) g/dL RDW Std Deviation (36.4-46.3) fL RDW Coeff of Kostas (11.5-14.5) % Plt Count (130-400) K/uL MPV (9.4-12.4) fL Immature Gran % (Auto) % Neut % (Auto) % Lymph % (Auto) % [place] % (Auto) % Eos % (Auto) % Baso % (Auto) % Neut # (Auto) (1.40-6.50) K/uL Lymph # (Auto) (1.20-3.40) K/uL [place] # (Auto) (0.11-0.59) K/uL Eos # (Auto) (0.00-0.50) K/uL Baso # (Auto) (0.00-0.20) K/uL Immature Gran # (Auto) (0.01-0.20) K/uL PT (9.0-12.0) Seconds INR (0.9-1.1) APTT (21-31) Seconds PTT Ratio Sodium (136-145) mmol/L Potassium (3.5-5.1) mmol/L Chloride (98-107) mmol/L Carbon Dioxide (21-32) mmol/L Anion Gap (3-11) BUN (6-23) mg/dl Creatinine (0.6-1.4) mg/dl Est Cr Clr Drug Dosing ml/min Est GFR ( Amer) ml/min Est GFR (Non-Af Amer) ml/min BUN/Creatinine Ratio (10-20) Glucose (70-99(Fasting)) mg/dl Lactate (0.4-2.0) mmol/L Calcium (8.6-10.3) mg/dl Magnesium (1.7-2.4) mg/dl Total Bilirubin (0.2-1.0) mg/dl AST (13-39) U/L ALT (7-52) U/L Alkaline Phosphatase (34-104) U/L Total Creatine Kinase (30-223) U/L Troponin I High Sens 48.8 H (0-20) pg/ml Total Protein (6.0-8.3) gm/dl Albumin (3.4-5.0) gm/dl Globulin (2.5-4.0) gm/dl Albumin/Globulin Ratio (0.9-2) Vitamin B12 (180-914) pg/ml Procalcitonin (0-0.5) ng/ml TSH (0.300-4.500) uIu/ml Anaplasma Smear Babesia Smear Lyme Disease Screen (Negative) Blood Type Antibody Screen Administered Medications Doxycycline Hyclate 100 mg/ (Dextrose) 100 mls @ 50 mls/hr IV Q12H ASHLY Stop: 09/08/23 12:59 Last Admin: 09/06/23 13:23 Dose: 50 mls/hr Documented By: SANFORD Thiamine HCl 100 mg/ Syringe 10 mls @ 2 mls/min IV QAM ASHLY Stop: 10/06/23 13:29 Last Admin: 09/06/23 14:25 Dose: 2 mls/min Documented By: SANFORD Parenteral Electrolytes (Plasma-Lyte A Ph 7.4) 1,000 mls @ 70 mls/hr IV .[id number] ASHLY Stop: 10/06/23 13:29 Last Admin: 09/06/23 15:31 Dose: 70 mls/hr Documented By: DAVID Ceftriaxone Sodium (Rocephin) 2,000 mg in 50 mls @ 100 mls/hr IV Q24H ASHLY Stop: 09/08/23 13:59 Last Admin: 09/06/23 14:25 Dose: 100 mls/hr Documented By: SANFORD Dextrose (D5w) 1,000 mls @ 40 mls/hr IV .Q24H ASHLY Stop: 09/06/23 19:44 Last Admin: 09/06/23 15:31 Dose: 40 mls/hr Documented By: DAVID Discontinued Medications Sodium Chloride (Nss) 500 mls @ 999 mls/hr IV .Q31M ASHLY Stop: 09/06/23 11:15 Last Infusion: 09/06/23 12:22 Dose: Infused Documented By: Admin: 09/06/23 11:36 Dose: 999 mls/hr Documented By: CAREN Calcium Gluconate () 1,000 mg in 60 mls @ 240 mls/hr IV NOW STA Stop: 09/06/23 11:55 Last Infusion: 09/06/23 12:22 Dose: Infused Documented By: Admin: 09/06/23 11:54 Dose: 240 mls/hr Documented By: SANFORD Dextrose/Lactated Ringer's (D5w And Lactated Ringers) 1,000 mls @ 80 mls/hr IV .[id number] [facility] Stop: 09/07/23 01:29 Last Admin: 09/06/23 13:23 Dose: 80 mls/hr Documented By: SANFORD Ioversol (Optiray 320 100ml) 89 ml IV ONCE ONE Stop: 09/06/23 11:30 Last Admin: 09/06/23 11:29 Dose: 89 ml Documented By: EDK Imaging Data Radiologist's Impression: Abdomen/Pelvis CT 09/06/23 10:41 CT abd pelvis IV con only CLINICAL HISTORY: weak, fall, poss bleed TECHNIQUE: Helical axial images of the abdomen and pelvis were obtained and displayed. Automated dose lowering techniques and/or adjustment according to patient size were utilized for this exam. This exam was performed with intravenous contrast. CT DOSE: 2188.02 mGy.cm COMPARISON: Comparison is made to CT abdomen pelvis 05/24/2022 FINDINGS: Lower chest: Bibasilar atelectasis versus scarring is seen. Liver: Hepatic steatosis is noted. Gallbladder and biliary tree: Cholelithiasis is seen without evidence of cholecystitis. No intra- or extrahepatic biliary ductal dilation. Pancreas: Unremarkable, no focal lesions. Spleen: Unremarkable. Adrenals: Unremarkable. Kidneys and ureters: Renal cysts are seen. Bladder: Limited evaluation due to underdistention. Reproductive organs: Unremarkable. Bowel: Diverticulosis is seen without evidence of diverticulitis. Lymph nodes Retroperitoneal: Unremarkable. Pelvic: Unremarkable. Mesenteric: Unremarkable. Peritoneum: Normal. Vessels: Atherosclerotic calcifications are seen. IVC filter is seen. Abdominal wall: Unremarkable. Bones: Degenerative changes in the visualized spine. IMPRESSION: 1. No acute abnormalities and in particular no evidence of acute fracture. 2. Hepatic steatosis. 3. Cholelithiasis without cholecystitis. 4. Diverticulosis without diverticulitis. 5. Additional findings as above. ACT 112: Negative or not required by law. Electronically signed by: Ryan Foreman M.D. 09/06/2023 11:52 AM Chest X-Ray 09/06/23 10:41 XR chest 1V portable CLINICAL HISTORY: weakness TECHNIQUE: Single frontal radiograph of the chest was obtained. Comparison: Comparison is made to chest radiograph 01/28/2020 FINDINGS: No lines and tubes are seen. Cardiomegaly is noted. The aortic arch is calcified. Mild bibasilar atelectasis is seen. No evidence of pleural effusion or pneumothorax. IMPRESSION: No acute chest disease. ACT 112: Negative or not required by law. Electronically signed by: Ryan Foreman M.D. 09/06/2023 11:[address] 09/06/23 10:41 CT head/brain wo con CLINICAL HISTORY: fall, trauma Technique: Contiguous axial CT images of the head were acquired from the base of the skull to the vertex without intravenous contrast administration. Images were viewed in brain, subdural and bone windows. Automated dose lowering techniques and/or adjustment according to patient size were utilized for this exam. Comparison: Comparison is made to CT head 07/23/2022 Findings: The ventricles, basal cisterns, and cerebral sulci are normal. There is no acute intracranial hemorrhage or evidence of acute territorial infarction. Neither mass effect, shift of the midline structures, nor abnormal extra-axial fluid collections are shown. Imaged portions of the paranasal sinuses and mastoid air cells are clear. The orbits appear normal. There are no acute fractures of the calvaria or scalp swelling. Impression: No acute intracranial hemorrhage, no evidence of acute territorial infarction or other acute intracranial disease process. ACT 112: Negative or not required by law. Electronically signed by: Ryan Foreman M.D. 09/06/2023 11:39 AM Discharge Plan Visit Data Chief Complaint: Fall Stated Complaint: FALLS, WEAKNESS, LEG EDEMA ED Provider: Alfonso Gonzalez Discharge Problem: Weakness, Elevated troponin, Fall, Pancytopenia, Hypocalcemia, Acute head trauma Patient Disposition: Admitted As Inpatient Condition: Fair Discharge Instructions Interventions: ED Discharge Assessment Last Done: 09/06/23 14:31 Discharge Problem: Fall Qualifiers: Encounter type: initial encounter Qualified Code(s): W19.XXXA - Unspecified fall, initial encounter Acute head trauma Qualifiers: Encounter type: initial encounter Qualified Code(s): S09.90XA - Unspecified injury of head, initial encounter
[2023-09-06 11:04] LABS: Basophils # (auto) 0.01 K/uL (0.00-0.20); Basophils % (auto) 0.4 %; Eosinophils # (auto) 0.07 K/uL (0.00-0.50); Eosinophils % (auto) 2.6 %; Hematocrit (blood only) 36.6 % (42.0-52.0); Hemoglobin 12.1 g/dl (14.0-18.0); Lymphocytes # (auto) 1.12 K/uL (1.20-3.40); Lymphocytes % (auto) 41.6 %; Mean Corpuscular Hemoglobin 33.1 pg (25.0-34.0); Mean Corpuscular Hgb Conc 33.1 g/dL (32.0-36.0); Mean Platelet Volume 11.1 fL (9.4-12.4); Monocytes # (auto) 0.23 K/uL (0.11-0.59); Monocytes % (auto) 8.6 %; Neutrophils # (auto) 1.26 K/uL (1.40-6.50); Neutrophils % (auto) 46.8 %; Platelet Count 86 K/uL (130-400); RDW Coefficient of Variation 14.6 % (11.5-14.5); Red Blood Count 3.66 M/uL (4.70-6.10); White Blood Count 2.69 K/ul (4.8-10.8)
[2023-09-06 11:19] LABS: Albumin Globulin Ratio 1.1 (0.9-2); Albumin Level 2.6 gm/dl (3.4-5.0); BUN Creatinine Ratio 19.8 (10-20); Calcium 7.8 mg/dl (8.6-10.3); Creatinine Clr Calc Pharmacy 49.3 ml/min; Est GFR (African American) 67.9 ml/min; Est GFR (Non-African American) 58.6 ml/min; Globulin 2.4 gm/dl (2.5-4.0); Magnesium 1.7 mg/dl (1.7-2.4); Potassium 4.4 mmol/L (3.5-5.1)
--- NOTE | 2023-09-06 11:22 | XRay Report ---
XR chest 1V portable CLINICAL HISTORY: weakness TECHNIQUE: Single frontal radiograph of the chest was obtained. Comparison: Comparison is made to chest radiograph 01/28/2020 FINDINGS: No lines and tubes are seen. Cardiomegaly is noted. The aortic arch is calcified. Mild bibasilar atel ectasis is seen. No evidence of pleural effusion or pneumothorax. IMPRESSION: No acute chest disease. ACT 112: Negative or not required by law. Electronically signed by: Ryan Foreman M.D. 09/06/2023 11:19 AM
[2023-09-06 11:27] LABS: INR 1.2 (0.9-1.1); Partial Thromboplastin Ratio 0.9; Partial Thromboplastin Time 25 Seconds (21-31); Prothrombin Time 12.7 Seconds (9.0-12.0)
[2023-09-06] MEDS: OPTIRAY 320 100ml IV ONE (11:29)
[2023-09-06 11:35] LABS: Thyroid Stimulating Hormone 4.144 uIu/ml (0.300-4.500)
[2023-09-06] MEDS: SODIUM CHLORIDE 0.9% 500 ML IV SCH (11:36)
--- NOTE | 2023-09-06 11:40 | CT Scan Report ---
CT head/brain wo con CLINICAL HISTORY: fall, trauma Technique: Contiguous axial CT images of the head were acquired from the base of the skull to the anisa leny without intravenous contrast administration. Images were viewed in brain, subdural and bone [facility]. Automated dose lowering techniques and/or adjustment according to patient size were utilized for this exam. Comparison: Comparison is made to CT head 07/23/2022 Findings: The ventricles, basal cisterns, and cerebral sulci are normal. There is no acute intracranial hemorrh age or evidence of acute territorial infarction. Neither mass effect, shift of the midline structures , nor abnormal extra-axial fluid collections are shown. Imaged portions of the paranasal sinuses and mastoid air cells are clear. The orbits appear normal. There are no acute fractures of the calvaria or scalp swelling. Impression: No acute intracranial hemorrhage, no evidence of acute territorial infarction or other acute intracra nial disease process. ACT 112: Negative or not required by law. Electronically signed by: Ryan Foreman M.D. 09/06/2023 11:39 AM
[2023-09-06] MEDS: CALCIUM GLUCONATE 1,000 MG/60 ML BAG IV STA (11:54)
--- NOTE | 2023-09-06 11:55 | CT Scan Report ---
CT abd pelvis IV con only CLINICAL HISTORY: weak, fall, poss bleed TECHNIQUE: Helical axial images of the abdomen and pelvis were obtained and displayed. Automated dose lowering techniques and/or adjustment according to patient size were utilized for this exam. This e xam was performed with intravenous contrast. CT DOSE: 2188.02 mGy.cm COMPARISON: Comparison is made to CT abdomen pelvis 05/24/2022 FINDINGS: Lower chest: Bibasilar atelectasis versus scarring is seen. Liver: Hepatic steatosis is noted. Gallbladder and biliary tree: Cholelithiasis is seen without evidence of cholecystitis. No intra- or extrahepatic biliary ductal dilation. Pancreas: Unremarkable, no focal lesions. Spleen: Unremarkable. Adrenals: Unremarkable. Kidneys and ureters: Renal cysts are seen. Bladder: Limited evaluation due to underdistention. Reproductive organs: Unremarkable. Bowel: Diverticulosis is seen without evidence of diverticulitis. Lymph nodes Retroperitoneal: Unremarkable. Pelvic: Unremarkable. Mesenteric: Unremarkable. Peritoneum: Normal. Vessels: Atherosclerotic calcifications are seen. IVC filter is seen. Abdominal wall: Unremarkable. Bones: Degenerative changes in the visualized spine. IMPRESSION: 1. No acute abnormalities and in particular no evidence of acute fracture. 2. Hepatic steatosis. 3. Cholelithiasis without cholecystitis. 4. Diverticulosis without diverticulitis. 5. Additional findings as above. ACT 112: Negative or not required by law. Electronically signed by: Ryan Foreman M.D. 09/06/2023 11:52 AM
--- NOTE | 2023-09-06 12:26 | History & Physical Report ---
Date of Service September 06, 2023 Assessment & Plan (1) Generalized weakness: Plan: Weakness - 1 week of fatigue, weakness, multipel falls, fevers, chills - Multiple contusions from falls. No syncope. No presyncope, just feels so weak that his legs give out - CThead: No acute process - CXR: No acute findings - CTA/P: No acute findings. Cholelithiasis without cholecystitis. Diverticulosis without diverticulitis. Patient is not anemic, hemoglobin 12.1. This is greatly improved from last of 8.3 Blood cultures pending Denies shortness of breath, pleuritic pain, tachycardia, hypoxia. Lower suspicion for PE, but is with new/increased leg swelling, hx of DVT, and increased risk of complications of DVT due to PFO. Dopplers pending ?Anaplasmosis - New mild transaminitis, leukopenic, thrombocytopenic. Patient has had fevers and does not show any evidence of alternative infectious etiology. Chest x-ray unremarkable, CTA/P unremarkable, no urinary symptoms with UA pending Tickborne panel is pending Given level of illness and higher suspicion for tickborne illness based on labs, will treat empirically with doxycycline twice daily until testing results History of CVA Patient reports history of CVA with no residual deficits in 2018 At that time he was recommended for anticoagulation with warfarin and aspirin treatment. This was stopped at some point, patient notes he thinks he had a Uriel filter as well for lower extremity clots, but does not know why his anticoagulation was stopped or if he can be on this Voicemail left with his for collateral, is not available at time of admission. Records requested from [facility] to help clarify history Echo in 2018 shows a PFO, is at risk for paradoxic stroke If tickborne panel is negative or lower extremity Dopplers are positive given that patient is not on an antiplatelet/anticoagulation and is high risk for CVA both by history and with his PFO --> follow-up MRI. Do not feel this is warranted on admission as he has global but no focal weakness, is mentating normally, and does not show any focal neurologic deficits. ?Nutritional Deficiency - Hx celiac. 2 drinks/per day ETOH with multiple recent ETOH free days and no withdrawal - At risk for malabsorbtive nutritional deficiency -Empiric thiamine added. B12 pending. Pt is on folic acid. (2) H/O abdominal surgery: Plan: Recent admission for bowel obstruction, mesenteric ischemia Discharge 02/06/2023.During that admission had ex lap with delayed closure, delayed intubation requiring ICU/pressures, and reex lap/ostomy and delayed closure. Was discharged to SNF and reportedly recovered well Daily bowel movements, abdominal site is well-healed, and abdomen on exam is soft nontender. Is having regular bowel movements Has had some weak heme positive stool but no melena/hematochezia, and has a history of hemorrhoids. Hemoglobin is 12.1 greatly improved from prior. Low suspicion for GI bleed, will trend hemoglobin (3) Elevated troponin: Plan: Elevated troponin Troponin 55.0. No chest pain. Repeat pending. Suspect demand No signs of volume overload, small fluid bolus given. Trended EKG (4) CKD (chronic kidney disease) stage 3, GFR 30-59 ml/min: Plan: Baseline creatinine around 1.1 Admitting creatinine 1.11 Renally dose medications as needed for creatinine clearance of 49 Trend daily (5) Celiac disease: Plan: Gluten-free diet (6) Bilateral pulmonary embolism: Plan: Per pt More than 5 years ago. He reports that he had a Uriel filter placed in the past for DVT/PE, does not know why. Denies hx of intracranial bleed, severe GI bleed. Does have mutliple falls - Dopplers pending - Bleeding hx collateral pending from [facility] records (7) Heme positive stool: Plan: +history of hemorrhoids No medic easier/melena. Hemoglobin is actually uptrending from prior, 12.1 on admission. Trended. PPI continued (8) History of CVA (cerebrovascular accident): Plan: History of CVA in 2018 At that time was noted to have PEs and was recommended for aspirin, anticoagulation, statin. Patient was discharged on warfarin. Unclear when/why this is discharge, patient report he does not know. He does note that he got a Brillion filter at some point but does not recall why this was placed. She is not currently on aspirin or statin, is not able to give history of why these were not continued after his stroke. Denies history of bleeding problems Plan DVT prophylaxis: SCDs deferred due to leg swelling, if Dopplers negative then can add SCDs. Pharmacal prophylaxis will be added once bleeding history/contraindications can be clarified as noted above Diet: Heart healthy Disposition: Medical telemetry until more thorough eval has been completed due to multiple risk factors for decompensation, if stable and doing well then downgrade to medical surgical CODE STATUS: Full code History of Present Illness Primary Care Provider: Nia Newton MD Prashanth is an 87-year-old male last discharged 02/06/2023 after an admission for mesenteric ischemia on 01/21/2023 with small bowel obstruction internal hernia s/p exploratory laparotomy/small bowel resection/wound VAC placement with prolonged intubation and re ex lap/enterostomy/washout/abdominal wall closure on 01/23/2023 who was ultimately discharged 02/04/2023 to SNF for rehab. During that admission comorbidities were managed by medical team including ELHAM which improved and with suspected underlying CKD 3, BPH on Flomax, heme positive stool in the setting of small bowel infarct for which patient was continued on a PPI twice daily after discharge and started on every other day iron, hyperlipidemia, and hypoxia which gradually improved and for which patient was continued on Lasix for several days. Presents to the ER 09/06/2023 with multiple falls in the prior week. He has had increased fatigue and weakness especially in the last 48 hours, and while denied focal weakness feels so weak that his legs give out from under him. He has struck his head, but has not lost consciousness. He denies abdominal pain, nausea/vomiting, black/bloody stool, chest pain, shortness of breath, fever, cough. Hemoccult is trace heme positive, Per Pt: Extremely weak in the last 7 days, moreso than normal. No lightheadedness, dizziness, SoB, chest pain, or chest pressure. No focal weakness. Legs 'just give out'. 5+ falls int he last week. No LOC, but did hit his head. No extremity pain or pain on weight bearing. 'Usually do well with my walker, I just feel weak all over' Has felt a little feverish last fe days. Currently denies fevers, chills, sweats No SoB, no chest pain or chest pressure. no dysuria. No abdominal pain. Having brown BMs at least once a day. No diarrhea or constipation. 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 He reports that he is not sure why this was done at the time but he does not have bleeding complications, and has not had bleeding the last 2 years and thinks he could be on an anticoagulant if noted. Hemoglobin 12.1, last 8.3. Blood cultures pending Patient is chronically lymphopenic UA is pending; patient does not have urinary symptoms Patient has a transaminitis and which is new, anaplasmosis testing is pending DId not take morning medication including acyclovir, protonix, or flomax. Is not a good historian of meds. Asks to call his Peggy for med rec. No answer on phone, left for callback Reports distant history of CVA. Does not take aspirin or plaavis. Takes alieve PM at night to sleep, denies other aspirin or NSAID use. Endorses history of ASD. Full Code Allergies Allergy/AdvReac Type Severity Reaction Status Date / Time gluten Allergy Severe GI SYMPTOMS Verified 06/14/22 21:15 wheat Allergy Severe gi symptoms Verified 06/14/22 21:15 Home Medications Medication Instructions Recorded Confirmed Type acyclovir 400 mg tablet 400 mg PO DAILY 90 days #90 tabs 08/20/17 09/06/23 History bimatoprost 0.01 % eye drops 1 drp ophthalmic (eye) PM 01/22/18 09/06/23 History (Lumigan) folic acid 1 mg tablet 1 mg PO QAM 01/22/18 09/06/23 History gabapentin 400 mg capsule 400 mg PO TID 02/01/19 09/06/23 History lipase 10,500-protease See Rx Instructions .Route .COMPLEX 01/07/21 09/06/23 History 35,500-amylase 61,500 unit capsule,delayed rel (Pancreaze) pantoprazole 40 mg tablet,delayed 40 mg PO BID 01/07/21 09/06/23 History release atorvastatin 40 mg tablet 40 mg PO HS 12/12/21 09/06/23 History glucosam 750 mg-chondroi 100 1 tab PO DAILY 01/07/22 09/06/23 History mg-hyalur 1.65 mg-CF borate 108 mg tablet (Move [facility] [employer] [facility]) ketoconazole 2 % topical cream 1 applic topical DIRECTED PRN 01/26/22 09/06/23 History Skin Irritation tamsulosin 0.4 mg capsule 0.4 mg PO DAILY 01/21/23 09/06/23 History MegaRed [place]-3 Krill Oil 1 cap PO DAILY 09/06/23 09/06/23 History melatonin 5 mg tablet 5 mg PO HS PRN Sleep 09/06/23 09/06/23 History vitamin A-vitamin C-vit E-min 1 tab PO DAILY 09/06/23 09/06/23 History tablet Past Med/Surg History Problem List (Updated 09/06/23 @ 12:58 by Richardson Christian MD) History of CVA (cerebrovascular accident) Elevated troponin Heme positive stool Hyperlipidemia BPH (benign prostatic hyperplasia) ELHAM (acute kidney injury) H/O abdominal surgery (01/23/23) Re-Exploratoration Laparotomy, Enteroenterostomy, abdominal washout, abdominal Wall Closure (Not Applicable) - Ildefonso Pickens DO Neuropathy (Chronic) HTN (hypertension) (Chronic) GERD (gastroesophageal reflux disease) (Chronic) Blackwell esophagus (Chronic) Bilateral pulmonary embolism (Acute) s/p Brillion Filter Placement by Dr. Nieves Pulmonary emboli SIRS (systemic inflammatory response syndrome) (Acute 06/24/13) Empyema lung (Acute) Acute DVT (deep venous thrombosis) (Acute) Thrombocytopenia (Acute) Anemia Cavitary lesion of lung (Acute) Severe protein-calorie malnutrition (Acute) Aortic stenosis, mild Embolic stroke (Acute) Acid fast bacillus Medical History (Updated 09/06/23 @ 12:58 by Richardson Christian MD) Hypoxia Sepsis Small bowel infarction Hypotension Small bowel obstruction Blackwell esophagus Encounter for pre-operative examination Alcoholism /alcohol abuse Herpes Pulmonary embolism Empyema, left Hoarseness of voice Herpes Peripheral neuropathy GERD (gastroesophageal reflux disease) Barretts esophagus Cancer SKIN CANCER BCC/SCC Hearing deficit Intraocular pressure increase TAKING LUMIGAN Transient ischemic attack (TIA) DURING HOSPITALIZATION EARLY 2017 ([facility]) Cardiac murmur Deep vein thrombosis hx of Pulmonary embolism Lung infection HOSPITALIZED NOVEMBER-2017 Surgical History (Updated 03/07/23 @ 00:11 by Nusrat Velazquez) History of bowel resection (01/21/23) Exploratory Laparotomy, small bowel resection, placement of abthera wound vac(Not Applicable) - Ildefonso Pickens DO History of tonsillectomy and adenoidectomy History of anesthesia reaction pt states due to ativan use he needs a lot of anesthesia for procedures History of esophagogastroduodenoscopy (EGD) last 02/2018 History of colonoscopy History of tooth extraction History of cataract surgery RT/LEFT History of transesophageal echocardiography (NILAY) Uriel filter in place RT LEG Family History Mother Family history of diabetes mellitus Father Family history of reaction to anesthesia "would get mean when he would come out of it" Social History Smoking Status: Former smoker Tobacco Type: Cigarettes Second Hand Exposure: No; Do You Dip or Chew Tobacco: No; Hx Alcohol Use: Yes Alcohol type: hard liquor Hx Substance Use: No Preferred Language: Georgian Communication Ability: Effective Manager Subway Required: No Beliefs That Will Affect Care: None Current Living Situation: Spouse Feels Safe at Home: Yes Assistive Devices: Cane, Denture - Upper, Glasses, Hearing Aid - Bilateral and Wheelchair Physical Exam Physical Exam: General: A&Ox3. NAD. Cooperative. R upper back contusion, L mid back contusion/abrasion. R hip contusion. R knee contusion. R lateral orbit contusion. No conjuctival hematoma. PERLAA. Vision/hearing grossly intact Pulm: CTAB A&P. -wheezes, -rales, -rhonchi. Symmetrical chest rise. No increased work of breathing. No respiratory distress. Cardiac: RRR, +sm. Radial pulses intact and symmetrical. Abdominal: Nontender, nondistended, soft. BS present. Extremities: Warm and dry. 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 Sensation to soft touch is intact in hands feet without asymmetry. 2+bilat CANDIDO. Results & Data Results & Data Vital Signs (Past 12 Hours) Vital Signs Temp Pulse Resp BP Pulse Ox O2 Del Method 09/06/23 12:13 70 09/06/23 10:47 36.6 C 80 14 128/73 94 Room Air 09/06/23 10:41 94 Room Air PG Care Time/CCT Total # of Minutes Spent Total Time Spent with Patient: Total time spent is greater than 50% in coordination of care (as documented) at patient's floor/unit and/or counseling patient: Coding Level of Care Code 10655 INT INP/OBS CARE 3/75MIN Diagnoses Generalized weakness R53.1 H/O abdominal surgery Z98.890 Elevated troponin R79.89 CKD (chronic kidney disease) stage 3, GFR 30-59 ml/min N18.3 Celiac disease K90.0 Bilateral pulmonary embolism I26.99 Heme positive stool R19.5 History of CVA (cerebrovascular accident) Z86.73
[2023-09-06] MEDS: DOXYCYCLINE HYCLATE 100 MG in DEXTROSE 5% MINI-B 100 ML IV SCH (13:23)
[2023-09-06] MEDS: D5W AND LACTATED RINGERS 1,000 ML IV SCH (13:23)
[2023-09-06 13:41] LABS: Lyme Screen Rflx Confirmation Negative (Negative)
[2023-09-06] MEDS: cefTRIAXone SODIUM 2,000 MG/50 ML BAG IV SCH (14:25)
[2023-09-06] MEDS: THIAMINE HCL 100 MG in SYRINGE 9 ML IV SCH (14:25)
--- NOTE | 2023-09-06 14:27 | Ultrasound Report ---
US venous doppler LE BI CLINICAL HISTORY: b/l leg swelling, hx DVT TECHNIQUE: Bilateral lower extremity real-time compression venous ultrasound with Color Doppler imagi ng. Utilizing real-time ultrasonic imaging multiple real time high-resolution ultrasonic images with compression and noncompression maneuvers of the deep venous system in addition to color doppler imagi ng were performed from the common femoral vein through the proximal calf veins. COMPARISON: Comparison is made to a venous Doppler ultrasound 12/07/2017 FINDINGS/IMPRESSION: Likely chronic stranding is in the popliteal vein on the right, compatible with improved changes of p opliteal venous thrombus in the prior exam. No superficial venous thrombosis is identified. Soft tiss ue edema is seen on the right. ACT 112: Negative or not required by law. Electronically signed by: Ryan Foreman M.D. 09/06/2023 2:26 PM
[2023-09-06] MEDS: DEXTROSE 5% 1,000 ML IV SCH (15:31)
[2023-09-06] MEDS: PLASMA-LYTE A 1,000 ML IV SCH (15:31)
[2023-09-06] MEDS: GABAPENTIN 400 MG CAP PO SCH (16:14)
[2023-09-06] MEDS ORDERED: PANCREAZE (LIPASE 10,500U) CAP PO SCH (16:30)
[2023-09-06] MEDS: PANCREAZE (LIPASE 10,500U) CAP PO SCH (17:38)
[2023-09-06 18:02] LABS: Appearance Urine Clear (Clear); Bilirubin Urine Negative (Negative); Blood Urine Negative (Negative); Color Urine Yellow; Glucose Urine UA Negative (Negative); Ketones Urine Trace (Negative); Leukocyte Esterase Urine Negative (Negative); Nitrite Urine Negative (Negative); Protein Urine Negative (Negative); Specific Gravity Urine 1.033 (1.000-1.030); Urobilinogen Urine Negative (Negative); pH Urine 5.5 (4.5-7.5)
[2023-09-06] MEDS: PANTOprazole 40 MG TAB PO SCH (20:28)
[2023-09-06] MEDS: ATORVASTATIN 40 MG TAB PO SCH (20:30)
[2023-09-06] MEDS: BIMATOPROST 0.01% OP SOLN 2.5 ML BTL OP SCH (20:30)
[2023-09-06] MEDS: HEPARIN SOD 5,000 UNIT/0.5 ML VIAL SQ SCH (20:30)
[2023-09-06] MEDS: MELATONIN 3 MG TAB PO PRN (20:33)
--- NOTE | 2023-09-06 22:25 | Electrocardiogram Report ---
Test Reason : Blood Pressure : / mmHG Vent. Rate : 076 BPM Atrial Rate : 076 BPM P-R Int : 212 ms QRS Dur : 082 ms QT Int : 398 ms P-R-T Axes : 001 -12 054 degrees QTc Int : 447 ms Sinus rhythm with 1st degree A-V block with occasional Premature ventricular complexes and Premature atrial complexes Low voltage QRS Cannot rule out Anterior infarct (cited on or before 21-JAN-2023) Abnormal ECG When compared with ECG of 21-JAN-2023 16:49, Premature ventricular complexes are now Present Confirmed by Giacomo Whitehead ([id number]) on 09/06/2023 10:25:02 PM Referred By: Richardson Christain Confirmed By:Giacomo Whitehead
[2023-09-07 05:59] LABS: Hematocrit (blood only) 29.7 % (42.0-52.0); Hemoglobin 9.9 g/dl (14.0-18.0); Mean Corpuscular Hemoglobin 32.9 pg (25.0-34.0); Mean Corpuscular Hgb Conc 33.3 g/dL (32.0-36.0); Mean Corpuscular Volume 98.7 fL (80.0-100.0); Mean Platelet Volume 11.2 fL (9.4-12.4); Platelet Count 71 K/uL (130-400); RDW Coefficient of Variation 14.8 % (11.5-14.5); RDW Standard Deviation 53.5 fL (36.4-46.3); Red Blood Count 3.01 M/uL (4.70-6.10); White Blood Count 1.99 K/ul (4.8-10.8)
[2023-09-07 06:19] LABS: BUN Creatinine Ratio 19.8 (10-20); Calcium 7.1 mg/dl (8.6-10.3); Est GFR (African American) 80.9 ml/min; Est GFR (Non-African American) 69.8 ml/min; Magnesium 1.5 mg/dl (1.7-2.4); Potassium 3.7 mmol/L (3.5-5.1)
[2023-09-07] MEDS: PANCREAZE (LIPASE 10,500U) CAP PO SCH (07:30)
[2023-09-07 07:31] LABS: Acanthocytes 2+; Polychromasia 1+
[2023-09-07 07:33] LABS: Basophils # (auto) 0.01 K/uL (0.00-0.20); Basophils % (auto) 0.5 %; Eosinophils # (auto) 0.06 K/uL (0.00-0.50); Lymphocytes % (auto) 40.2 %; Monocytes # (auto) 0.17 K/uL (0.11-0.59); Monocytes % (auto) 8.5 %; Neutrophils # (auto) 0.95 K/uL (1.40-6.50); Neutrophils % (auto) 47.8 %
[2023-09-07] MEDS: TAMSULOSIN HCL 0.4 MG CAP PO SCH (08:13)
[2023-09-07] MEDS: FOLIC ACID 1 MG TAB PO SCH (08:14)
[2023-09-07] MEDS: ACYCLOVIR 400 MG TAB PO SCH (08:14)
[2023-09-07] MEDS: ASPIRIN 81 MG ECTAB PO SCH (10:52)
--- NOTE | 2023-09-07 13:23 | Hospitalist Progress Note ---
Date of Service September 07, 2023 Assessment & Plan (1) Generalized weakness: Plan: Weakness - 1 week of fatigue, weakness, multipel falls, fevers, chills - Multiple contusions from falls. No syncope. No presyncope, just feels so weak that his legs give out - CThead: No acute process - CXR: No acute findings - CTA/P: No acute findings. Cholelithiasis without cholecystitis. Diverticulosis without diverticulitis. Patient is not anemic, hemoglobin 12.1. This is greatly improved from last of 8.3 Blood cultures pending Denies shortness of breath, pleuritic pain, tachycardia, hypoxia. Lower suspicion for PE, but is with new/increased leg swelling, hx of DVT, and increased risk of complications of DVT due to PFO. Dopplers negative for acute DVT ?Anaplasmosis - New mild transaminitis, leukopenic, thrombocytopenic. Patient has had fevers and does not show any evidence of alternative infectious etiology. Chest x-ray unremarkable, CTA/P unremarkable, no urinary symptoms with UA pending Tickborne panel is pending Given level of illness and higher suspicion for tickborne illness based on labs, will treat empirically with doxycycline twice daily until testing results History of CVA Patient reports history of CVA with no residual deficits in 2018 At that time he was recommended for anticoagulation with warfarin and aspirin treatment. This was stopped at some point, patient notes he thinks he had a Uriel filter as well for lower extremity clots, but does not know why his anticoagulation was stopped or if he can be on this Records requested from [facility] to help clarify history Echo in 2018 shows a PFO, is at risk for paradoxic stroke If tickborne panel is negative, given that patient is not on an antiplatelet/anticoagulation and is high risk for CVA both by history and with his PFO --> follow-up MRI may be considered. Do not feel this is warranted at this time as he has global but no focal weakness, is mentating normally, and does not show any focal neurologic deficits. ?Nutritional Deficiency - Hx celiac. 2 drinks/per day ETOH with multiple recent ETOH free days and no withdrawal - At risk for malabsorbtive nutritional deficiency -Empiric thiamine added. B12 normal. Pt is on folic acid. (2) H/O abdominal surgery: Plan: Recent admission for bowel obstruction, mesenteric ischemia Discharge 02/06/2023.During that admission had ex lap with delayed closure, delayed intubation requiring ICU/pressures, and reex lap/ostomy and delayed closure. Was discharged to SNF and reportedly recovered well Daily bowel movements, abdominal site is well-healed, and abdomen on exam is soft nontender. Is having regular bowel movements Has had some weak heme positive stool but no melena/hematochezia, and has a history of hemorrhoids. Hemoglobin is 12.1 greatly improved from prior. Low suspicion for GI bleed, will trend hemoglobin (3) Elevated troponin: Plan: Elevated troponin Troponin 55.0. No chest pain. Trended. Suspect demand ischemia No signs of volume overload, small fluid bolus given. Trended EKG unremarkable (4) CKD (chronic kidney disease) stage 3, GFR 30-59 ml/min: Plan: Baseline creatinine around 1.1 Creatinine at base Renally dose medications as needed for creatinine clearance of 49 Trend daily (5) Celiac disease: Plan: Gluten-free diet (6) Bilateral pulmonary embolism: Plan: Per pt More than 5 years ago. He reports that he had a Uriel filter placed in the past for DVT/PE. Denies hx of intracranial bleed, severe GI bleed. Does have mutliple falls - Dopplers negative for acute DVT - Bleeding hx collateral pending from [facility] records (7) Heme positive stool: Plan: +history of hemorrhoids No medic easier/melena. Hemoglobin is actually uptrending from prior, 12.1 on admission. Trended. PPI continued (8) History of CVA (cerebrovascular accident): Plan: History of CVA in 2018 At that time was noted to have PEs and was recommended for aspirin, anticoagulation, statin. Patient was discharged on warfarin. Unclear when/why this is discharge, patient report he does not know. He does note that he got a [place] filter at some point She is not currently on aspirin or statin, is not able to give history of why these were not continued after his stroke. Denies history of bleeding problems he Patient was started on baby aspirin on admission Plan DVT prophylaxis: SCDs. Avoid pharmacologic prophylaxis due to thrombocytopenia Diet: Heart healthy CODE STATUS: Full code Admission and Anticipated Discharge Date Admission Date: September 06, 2023 Subjective Patient feels well. Denies chest pain or shortness of breath. Complains of weakness of his legs bilaterally. No numbness of the legs. Review of Systems Review of Systems: All systems reviewed & are unremarkable except as noted in Subjective Physical Exam Physical Exam: General: Awake, conversant Heart: S1, S2/regular rate and rhythm, no murmur rubs or gallops Lungs: Clear to auscultation bilaterally. Normal effort Abdomen: Soft/nontender/nondistended. No hepatosplenomegaly Extremities: No clubbing/cyanosis. No edema Behavior: Appropriate, cooperative Results & Data Results & Data Vital Signs (Past 12 Hours) Vital Signs Temp Pulse Pulse Resp BP BP Pulse Ox 09/07/23 11:34 36.7 C 87 18 110/71 95 09/07/23 07:27 36.8 C 69 20 128/82 93 09/07/23 07:17 63 09/07/23 04:27 09/07/23 03:47 36.5 C 68 18 107/60 92 O2 Del Method 09/07/23 11:34 Room Air 09/07/23 07:27 Room Air 09/07/23 07:17 09/07/23 04:27 Room Air 09/07/23 03:47 Room Air Laboratory Results Abnormal lab results 09/06/23 09/07/23 Range/Units 17:45 05:26 WBC 1.99 L (4.8-10.8) K/ul RBC 3.01 L (4.70-6.10) M/uL Hgb 9.9 L (14.0-18.0) g/dl Hct 29.7 L (42.0-52.0) % RDW Std Deviation 53.5 H (36.4-46.3) fL RDW Coeff of Kostas 14.8 H (11.5-14.5) % Plt Count 71 L (130-400) K/uL Neut # (Auto) 0.95 L* (1.40-6.50) K/uL Lymph # (Auto) 0.80 L (1.20-3.40) K/uL Immature Gran # (Auto) 0.00 L (0.01-0.20) K/uL Chloride 110 H (98-107) mmol/L Glucose 63 L (70-99(Fasting)) mg/dl Calcium 7.1 L (8.6-10.3) mg/dl Magnesium 1.5 L (1.7-2.4) mg/dl Ur Specific [place] 1.033 H (1.000-1.030) Urine Ketones Trace H (Negative) Diagnostic Findings Venous Doppler Study 09/06/23 12:50 US venous doppler LE BI CLINICAL HISTORY: b/l leg swelling, hx DVT TECHNIQUE: Bilateral lower extremity real-time compression venous ultrasound with Color Doppler imaging. Utilizing real-time ultrasonic imaging multiple real time high-resolution ultrasonic images with compression and noncompression maneuvers of the deep venous system in addition to color doppler imaging were performed from the common femoral vein through the proximal calf veins. COMPARISON: Comparison is made to a venous Doppler ultrasound 12/07/2017 FINDINGS/IMPRESSION: Likely chronic stranding is in the popliteal vein on the right, compatible with improved changes of popliteal venous thrombus in the prior exam. No superficial venous thrombosis is identified. Soft tissue edema is seen on the right. ACT 112: Negative or not required by law. Electronically signed by: Ryan Foreman M.D. 09/06/2023 2:26 PM PG Care Time/CCT Total # of Minutes Spent Total Time Spent with Patient: Total time spent is greater than 50% in coordination of care (as documented) at patient's floor/unit and/or counseling patient: Coding Level of Care Code 10696 SUB INP/OBS CARE 2/35MIN Diagnoses Generalized weakness R53.1 H/O abdominal surgery Z98.890 Elevated troponin R79.89 CKD (chronic kidney disease) stage 3, GFR 30-59 ml/min N18.3 Celiac disease K90.0 Bilateral pulmonary embolism I26.99 Heme positive stool R19.5 History of CVA (cerebrovascular accident) Z86.73
[2023-09-08] MEDS: ACETAMINOPHEN 325 MG TAB PO PRN (00:39)
[2023-09-08 06:19] LABS: Hematocrit (blood only) 29.6 % (42.0-52.0); Hemoglobin 9.8 g/dl (14.0-18.0); Mean Corpuscular Hgb Conc 33.1 g/dL (32.0-36.0); Mean Corpuscular Volume 99.7 fL (80.0-100.0); Mean Platelet Volume 10.4 fL (9.4-12.4); Platelet Count 57 K/uL (130-400); RDW Coefficient of Variation 14.7 % (11.5-14.5); RDW Standard Deviation 53.6 fL (36.4-46.3); Red Blood Count 2.97 M/uL (4.70-6.10); White Blood Count 1.63 K/ul (4.8-10.8)
[2023-09-08 06:39] LABS: BUN Creatinine Ratio 16.7 (10-20); Est GFR (African American) 87.5 ml/min; Est GFR (Non-African American) 75.5 ml/min; Potassium 3.6 mmol/L (3.5-5.1)
[2023-09-08 06:50] LABS: Acanthocytes 1+; Basophils # (auto) 0.01 K/uL (0.00-0.20); Basophils % (auto) 0.6 %; Eosinophils # (auto) 0.09 K/uL (0.00-0.50); Eosinophils % (auto) 5.5 %; Immature Granulocytes # (auto) 0.01 K/uL (0.01-0.20); Immature Granulocytes % (auto) 0.6 %; Lymphocytes # (auto) 0.57 K/uL (1.20-3.40); Monocytes # (auto) 0.17 K/uL (0.11-0.59); Monocytes % (auto) 10.4 %; Neutrophils # (auto) 0.78 K/uL (1.40-6.50); Neutrophils % (auto) 47.9 %
--- NOTE | 2023-09-08 14:49 | Hospitalist Progress Note ---
Date of Service September 08, 2023 Assessment & Plan (1) Generalized weakness: Plan: Weakness - 1 week of fatigue, weakness, multipel falls, fevers, chills - Multiple contusions from falls. No syncope. No presyncope, just feels so weak that his legs give out - CThead: No acute process - CXR: No acute findings - CTA/P: No acute findings. Cholelithiasis without cholecystitis. Diverticulosis without diverticulitis. Patient is mildly anemic, hemoglobin 9.8. This is improved from last of 8.3 in 02/02 Blood cultures negative for 48 hours Denies shortness of breath, pleuritic pain, tachycardia, hypoxia. Lower suspicion for PE, but is with new/increased leg swelling, hx of DVT, and increased risk of complications of DVT due to PFO. Dopplers negative for acute DVT ?Anaplasmosis - New mild transaminitis, leukopenic, thrombocytopenic. Patient has had fevers and does not show any evidence of alternative infectious etiology. Chest x-ray unremarkable, CTA/P unremarkable, no urinary symptoms with UA pending Tickborne panel is pending Given level of illness and higher suspicion for tickborne illness based on labs, will treat empirically with doxycycline twice daily until testing results Repeat LFTs in a.m. History of CVA Patient reports history of CVA with no residual deficits in 2018 At that time he was recommended for anticoagulation with warfarin and aspirin treatment. This was stopped at some point, patient notes he thinks he had a [place] filter as well for lower extremity clots, but does not know why his anticoagulation was stopped or if he can be on this Records requested from [facility] to help clarify history Echo in 2018 shows a PFO, is at risk for paradoxic stroke If tickborne panel is negative, given that patient is not on an antiplatelet/anticoagulation and is high risk for CVA both by history and with his PFO --> follow-up MRI may be considered. Do not feel this is warranted at this time as he has global but no focal weakness, is mentating normally, and does not show any focal neurologic deficits. ?Nutritional Deficiency - Hx celiac. 2 drinks/per day ETOH with multiple recent ETOH free days and no withdrawal - At risk for malabsorbtive nutritional deficiency -Empiric thiamine added. B12 normal. Pt is on folic acid. (2) H/O abdominal surgery: Plan: Recent admission for bowel obstruction, mesenteric ischemia Discharge 02/06/2023.During that admission had ex lap with delayed closure, delayed intubation requiring ICU/pressures, and reex lap/ostomy and delayed closure. Was discharged to SNF and reportedly recovered well Daily bowel movements, abdominal site is well-healed, and abdomen on exam is soft nontender. Is having regular bowel movements Has had some weak heme positive stool but no melena/hematochezia, and has a history of hemorrhoids. Hemoglobin is 12.1 greatly improved from prior. Low suspicion for GI bleed, will trend hemoglobin (3) Elevated troponin: Plan: Elevated troponin Troponin 55.0. No chest pain. Trended. Suspect demand ischemia No signs of volume overload, small fluid bolus given. Trended EKG unremarkable (4) CKD (chronic kidney disease) stage 3, GFR 30-59 ml/min: Plan: Baseline creatinine around 1.1 Creatinine at base Renally dose medications as needed for creatinine clearance of 49 Trend daily (5) Celiac disease: Plan: Gluten-free diet (6) Bilateral pulmonary embolism: Plan: Per pt More than 5 years ago. He reports that he had a [place] filter placed in the past for DVT/PE. Denies hx of intracranial bleed, severe GI bleed. Does have mutliple falls - Dopplers negative for acute DVT - Bleeding hx collateral pending from [facility] [place] (7) Heme positive stool: Plan: +history of hemorrhoids No medic easier/melena. Hemoglobin is actually uptrending from prior, 12.1 on admission. Trended. PPI continued (8) History of CVA (cerebrovascular accident): Plan: History of CVA in 2018 At that time was noted to have PEs and was recommended for aspirin, anticoagulation, statin. Patient was discharged on warfarin. Unclear when/why this is discharge, patient report he does not know. He does note that he got a [place] filter at some point he is not currently on aspirin or statin, is not able to give history of why these were not continued after his stroke. Denies history of bleeding problems he Patient was started on baby aspirin on admission Plan DVT prophylaxis: SCDs. Avoid pharmacologic prophylaxis due to thrombocytopenia Diet: Heart healthy CODE STATUS: Full code Admission and Anticipated Discharge Date Admission Date: September 06, 2023 Subjective Patient says that he is feeling better overall. He is a vague historian and is not able to give me timelines of when his symptoms started. Called his , left a voicemail, awaiting callback. Review of Systems Review of Systems: All systems reviewed & are unremarkable except as noted in Subjective Physical Exam Physical Exam: General: Awake, conversant Heart: S1, S2/regular rate and rhythm, no murmur rubs or gallops Lungs: Clear to auscultation bilaterally. Normal effort Abdomen: Soft/nontender/nondistended. No hepatosplenomegaly Extremities: No clubbing/cyanosis. Trace bilateral edema (patient says that this is chronic) Behavior: Appropriate, cooperative Results & Data Results & Data Vital Signs (Past 12 Hours) Vital Signs Temp Pulse Resp BP BP Pulse Ox O2 Del Method 09/08/23 11:55 36.6 C 67 18 83/53 L 93/63 L 95 Room Air 09/08/23 11:00 36.6 C 67 18 83/53 L 93/63 L 95 Room Air 09/08/23 07:56 36.4 C L 60 17 136/76 93 Room Air 09/08/23 04:24 36.3 C L 63 18 108/85 92 Room Air Laboratory Results Abnormal lab results 09/08/23 Range/Units 06:02 WBC 1.63 L (4.8-10.8) K/ul RBC 2.97 L (4.70-6.10) M/uL Hgb 9.8 L (14.0-18.0) g/dl Hct 29.6 L (42.0-52.0) % RDW Std Deviation 53.6 H (36.4-46.3) fL RDW Coeff of Kostas 14.7 H (11.5-14.5) % Plt Count 57 L (130-400) K/uL Neut # (Auto) 0.78 L* (1.40-6.50) K/uL Lymph # (Auto) 0.57 L (1.20-3.40) K/uL Chloride 110 H (98-107) mmol/L Calcium 7.0 L (8.6-10.3) mg/dl PG Care Time/CCT Total # of Minutes Spent Total Time Spent with Patient: Total time spent is greater than 50% in coordination of care (as documented) at patient's floor/unit and/or counseling patient: Coding Level of Care Code 28765 SUB INP/OBS CARE 2/35MIN Diagnoses Generalized weakness R53.1 H/O abdominal surgery Z98.890 Elevated troponin R79.89 CKD (chronic kidney disease) stage 3, GFR 30-59 ml/min N18.3 Celiac disease K90.0 Bilateral pulmonary embolism I26.99 Heme positive stool R19.5 History of CVA (cerebrovascular accident) Z86.73
[2023-09-09 07:46] LABS: Basophils # (auto) 0.01 K/uL (0.00-0.20); Basophils % (auto) 0.5 %; Eosinophils % (auto) 4.6 %; Hematocrit (blood only) 32.8 % (42.0-52.0); Hemoglobin 10.8 g/dl (14.0-18.0); Lymphocytes # (auto) 0.82 K/uL (1.20-3.40); Lymphocytes % (auto) 37.4 %; Mean Corpuscular Hemoglobin 32.6 pg (25.0-34.0); Mean Corpuscular Hgb Conc 32.9 g/dL (32.0-36.0); Mean Corpuscular Volume 99.1 fL (80.0-100.0); Mean Platelet Volume 11.1 fL (9.4-12.4); Monocytes % (auto) 9.1 %; Neutrophils # (auto) 1.06 K/uL (1.40-6.50); Neutrophils % (auto) 48.4 %; Platelet Count 58 K/uL (130-400); RDW Coefficient of Variation 14.7 % (11.5-14.5); RDW Standard Deviation 53.5 fL (36.4-46.3); Red Blood Count 3.31 M/uL (4.70-6.10); White Blood Count 2.19 K/ul (4.8-10.8)
[2023-09-09 08:21] LABS: Albumin Level 2.1 gm/dl (3.4-5.0); BUN Creatinine Ratio 14.1 (10-20); Bilirubin Direct 0.2 mg/dl (0-0.2); Bilirubin,Total 0.6 mg/dl (0.2-1.0); Calcium 7.3 mg/dl (8.6-10.3); Creatinine Clr Calc Pharmacy 65.9 ml/min; Est GFR (African American) 89.5 ml/min; Est GFR (Non-African American) 77.3 ml/min; Potassium 3.8 mmol/L (3.5-5.1); Total Protein 4.2 gm/dl (6.0-8.3)
[2023-09-09] MEDS: DOXYCYCLINE HYCLATE 100 MG CAP PO SCH (10:41)
--- NOTE | 2023-09-09 15:02 | Hospitalist Progress Note ---
Date of Service September 09, 2023 Assessment & Plan (1) Generalized weakness: Plan: Weakness - 1 week of fatigue, weakness, multipel falls, fevers, chills Per the patient has been generally weak over the last 6 months and that has been gradually declining - Multiple contusions from falls. No syncope. No presyncope, just feels so weak that his legs give out - CThead: No acute process - CXR: No acute findings - CTA/P: No acute findings. Cholelithiasis without cholecystitis. Diverticulosis without diverticulitis. Patient is mildly anemic. This is improved from last of 8.3 in 02/02 Blood cultures negative for 48 hours. Ceftriaxone discontinued. Denies shortness of breath, pleuritic pain, tachycardia, hypoxia. Lower suspicion for PE, but is with new/increased leg swelling, hx of DVT, and increased risk of complications of DVT due to PFO. Dopplers negative for acute DVT ?Anaplasmosis - New mild transaminitis, leukopenic, thrombocytopenic. Patient has had questionable fevers and does not show any evidence of alternative infectious etiology. Chest x-ray unremarkable, CTA/P unremarkable, no urinary symptoms with UA pending Tickborne panel is pending Given level of illness and higher suspicion for tickborne illness based on labs, will treat empirically with doxycycline twice daily until testing results Repeat LFTs negative History of CVA Patient reports history of CVA with no residual deficits in 2018 At that time he was recommended for anticoagulation with warfarin and aspirin treatment. This was stopped at some point, patient notes he thinks he had a [place] filter as well for lower extremity clots, but does not know why his anticoagulation was stopped or if he can be on this Records requested from [facility] to help clarify history Echo in 2018 shows a PFO, is at risk for paradoxic stroke If tickborne panel is negative, given that patient is not on an antiplatelet/anticoagulation and is high risk for CVA both by history and with his PFO --> follow-up MRI may be considered. Do not feel this is warranted at this time as he has global but no focal weakness, is mentating normally, and does not show any focal neurologic deficits. ?Nutritional Deficiency - Hx celiac. 2 drinks/per day ETOH with multiple recent ETOH free days and no withdrawal - At risk for malabsorbtive nutritional deficiency -Empiric thiamine added. B12 normal. Pt is on folic acid. Patient has a poor appetite Consult dietitian Pancytopenia Ruling out anaplasmosis Treating empirically with doxycycline Improving (2) H/O abdominal surgery: Plan: Recent admission for bowel obstruction, mesenteric ischemia Discharge 02/06/2023.During that admission had ex lap with delayed closure, delayed intubation requiring ICU/pressures, and reex lap/ostomy and delayed closure. Was discharged to SNF and reportedly recovered well Daily bowel movements, abdominal site is well-healed, and abdomen on exam is soft nontender. Is having regular bowel movements Has had some weak heme positive stool but no melena/hematochezia, and has a history of hemorrhoids. Hemoglobin is 12.1 greatly improved from prior. Low suspicion for GI bleed, will trend hemoglobin (3) Elevated troponin: Plan: Elevated troponin Troponin 55.0. No chest pain. Trended. Suspect demand ischemia No signs of volume overload, small fluid bolus given. Trended EKG unremarkable (4) CKD (chronic kidney disease) stage 3, GFR 30-59 ml/min: Plan: Baseline creatinine around 1.1 Creatinine at base Renally dose medications as needed for creatinine clearance of 49 Trend daily (5) Celiac disease: Plan: Gluten-free diet (6) Bilateral pulmonary embolism: Plan: Per pt More than 5 years ago. He reports that he had a [place] filter placed in the past for DVT/PE. Denies hx of intracranial bleed, severe GI bleed. Does have mutliple falls - Dopplers negative for acute DVT - Bleeding hx collateral pending from [facility] records (7) Heme positive stool: Plan: +history of hemorrhoids No medic easier/melena. Hemoglobin is actually uptrending from prior, 12.1 on admission. Trended. PPI continued (8) History of CVA (cerebrovascular accident): Plan: History of CVA in 2018 At that time was noted to have PEs and was recommended for aspirin, anticoagulation, statin. Patient was discharged on warfarin. Unclear when/why this is discharge, patient report he does not know. He does note that he got a [place] filter at some point he is not currently on aspirin or statin, is not able to give history of why these were not continued after his stroke. Denies history of bleeding problems he Patient was started on baby aspirin on admission Plan DVT prophylaxis: SCDs. Avoid pharmacologic prophylaxis due to thrombocytopenia Diet: Heart healthy CODE STATUS: Full code Admission and Anticipated Discharge Date Admission Date: September 06, 2023 Subjective I had a detailed conversation with the this morning. The stated that he has been generally weak over the last 6 months ever since his surgery. And it has been getting worse in general. He has also had a low appetite. Over the past 1 week, his weakness got worse and he fell several times. He was thus brought to the emergency room. Per , he has had cold intolerance lately for the last 6 months or so. No particular fevers or chills. Review of Systems 2 Review of Systems: All systems reviewed & are unremarkable except as noted in Subjective Physical Exam Physical Exam: General: Awake, conversant Heart: S1, S2/regular rate and rhythm, no murmur rubs or gallops Lungs: Clear to auscultation bilaterally. Normal effort Abdomen: Soft/nontender/nondistended. No hepatosplenomegaly Extremities: No clubbing/cyanosis. No edema Behavior: Appropriate, cooperative Results & Data Results & Data Vital Signs (Past 12 Hours) Vital Signs Temp Pulse Resp BP BP Pulse Ox O2 Del Method 09/09/23 11:52 37.2 C 80 17 93/64 L 91 Room Air 09/09/23 08:05 36.8 C 76 18 133/71 97 Room Air 09/09/23 03:41 36.3 C L 70 18 118/72 91 Room Air Laboratory Results Abnormal lab results 09/09/23 Range/Units 07:20 WBC 2.19 L (4.8-10.8) K/ul RBC 3.31 L (4.70-6.10) M/uL Hgb 10.8 L (14.0-18.0) g/dl Hct 32.8 L (42.0-52.0) % RDW Std Deviation 53.5 H (36.4-46.3) fL RDW Coeff of Kostas 14.7 H (11.5-14.5) % Plt Count 58 L (130-400) K/uL Neut # (Auto) 1.06 L (1.40-6.50) K/uL Lymph # (Auto) 0.82 L (1.20-3.40) K/uL Immature Gran # (Auto) 0.00 L (0.01-0.20) K/uL Chloride 112 H (98-107) mmol/L Anion Gap 2 L (3-11) Calcium 7.3 L (8.6-10.3) mg/dl Total Protein 4.2 L (6.0-8.3) gm/dl Albumin 2.1 L (3.4-5.0) gm/dl PG Care Time/CCT Total # of Minutes Spent Total Time Spent with Patient: Total time spent is greater than 50% in coordination of care (as documented) at patient's floor/unit and/or counseling patient: Coding Level of Care Code 29130 SUB INP/OBS CARE 2/35MIN Diagnoses Generalized weakness R53.1 H/O abdominal surgery Z98.890 Elevated troponin R79.89 CKD (chronic kidney disease) stage 3, GFR 30-59 ml/min N18.3 Celiac disease K90.0 Bilateral pulmonary embolism I26.99 Heme positive stool R19.5 History of CVA (cerebrovascular accident) Z86.73
[2023-09-10 09:38] LABS: BUN Creatinine Ratio 11.8 (10-20); Calcium 7.8 mg/dl (8.6-10.3); Creatinine Clr Calc Pharmacy 65.6 ml/min; Est GFR (African American) 89.5 ml/min; Est GFR (Non-African American) 77.3 ml/min; Potassium 3.9 mmol/L (3.5-5.1)
[2023-09-10 09:40] LABS: Hematocrit (blood only) 34.5 % (42.0-52.0); Hemoglobin 11.5 g/dl (14.0-18.0); Mean Corpuscular Hemoglobin 33.1 pg (25.0-34.0); Mean Corpuscular Hgb Conc 33.3 g/dL (32.0-36.0); Mean Corpuscular Volume 99.4 fL (80.0-100.0); Mean Platelet Volume 11.1 fL (9.4-12.4); Platelet Count 66 K/uL (130-400); RDW Coefficient of Variation 14.5 % (11.5-14.5); RDW Standard Deviation 52.7 fL (36.4-46.3); Red Blood Count 3.47 M/uL (4.70-6.10); White Blood Count 2.08 K/ul (4.8-10.8)
[2023-09-10 13:48] LABS: Babesia microti DNA Not Detected (Not Detected)
--- NOTE | 2023-09-10 14:13 | Hospitalist Progress Note ---
Date of Service September 10, 2023 Assessment & Plan (1) Generalized weakness: Plan: Weakness - 1 week of fatigue, weakness, multipel falls, fevers, chills Per the patient has been generally weak over the last 6 months and that has been gradually declining - Multiple contusions from falls. No syncope. No presyncope, just feels so weak that his legs give out - CThead: No acute process - CXR: No acute findings - CTA/P: No acute findings. Cholelithiasis without cholecystitis. Diverticulosis without diverticulitis. Patient is mildly anemic. This is improved from last of 8.3 in 02/02 Blood cultures negative for 48 hours. Ceftriaxone discontinued. Denies shortness of breath, pleuritic pain, tachycardia, hypoxia. Lower suspicion for PE, but is with new/increased leg swelling, hx of DVT, and increased risk of complications of DVT due to PFO. Dopplers negative for acute DVT ?Anaplasmosis - New mild transaminitis, leukopenic, thrombocytopenic. Patient has had questionable fevers and does not show any evidence of alternative infectious etiology. Chest x-ray unremarkable, CTA/P unremarkable, no urinary symptoms with UA pending Tickborne panel is pending Given level of illness and higher suspicion for tickborne illness based on labs, will treat empirically with doxycycline twice daily until testing results Repeat LFTs negative History of CVA Patient reports history of CVA with no residual deficits in 2018 At that time he was recommended for anticoagulation with warfarin and aspirin treatment. This was stopped at some point, patient notes he thinks he had a [place] filter as well for lower extremity clots, but does not know why his anticoagulation was stopped or if he can be on this Records requested from [facility] to help clarify history Echo in 2018 shows a PFO, is at risk for paradoxic stroke If tickborne panel is negative, given that patient is not on an antiplatelet/anticoagulation and is high risk for CVA both by history and with his PFO --> follow-up MRI may be considered. Do not feel this is warranted at this time as he has global but no focal weakness, is mentating normally, and does not show any focal neurologic deficits. ?Nutritional Deficiency - Hx celiac. 2 drinks/per day ETOH with multiple recent ETOH free days and no withdrawal - At risk for malabsorbtive nutritional deficiency -Empiric thiamine added. B12 normal. Pt is on folic acid. Patient has a poor appetite Bilateral lower extremity swelling is most likely due to malnutrition and hypoalbuminemia. Dietitian involved Pancytopenia Ruling out anaplasmosis Treating empirically with doxycycline Improving (2) H/O abdominal surgery: Plan: Recent admission for bowel obstruction, mesenteric ischemia Discharge 02/06/2023.During that admission had ex lap with delayed closure, delayed intubation requiring ICU/pressures, and reex lap/ostomy and delayed closure. Was discharged to SNF and reportedly recovered well Daily bowel movements, abdominal site is well-healed, and abdomen on exam is soft nontender. Is having regular bowel movements Has had some weak heme positive stool but no melena/hematochezia, and has a history of hemorrhoids. Hemoglobin is 12.1 greatly improved from prior. Low suspicion for GI bleed, will trend hemoglobin (3) Elevated troponin: Plan: Elevated troponin Troponin 55.0. No chest pain. Trended. Suspect demand ischemia No signs of volume overload, small fluid bolus given. Trended EKG unremarkable (4) CKD (chronic kidney disease) stage 3, GFR 30-59 ml/min: Plan: Baseline creatinine around 1.1 Creatinine at base Renally dose medications as needed for creatinine clearance of 49 Trend daily (5) Celiac disease: Plan: Gluten-free diet (6) Bilateral pulmonary embolism: Plan: Per pt More than 5 years ago. He reports that he had a [place] filter placed in the past for DVT/PE. Denies hx of intracranial bleed, severe GI bleed. Does have mutliple falls - Dopplers negative for acute DVT - Bleeding hx collateral pending from [facility] records (7) Heme positive stool: Plan: +history of hemorrhoids No medic easier/melena. Hemoglobin is actually uptrending from prior, 12.1 on admission. Trended. PPI continued (8) History of CVA (cerebrovascular accident): Plan: History of CVA in 2018 At that time was noted to have PEs and was recommended for aspirin, anticoagulation, statin. Patient was discharged on warfarin. Unclear when/why this is discharge, patient report he does not know. He does note that he got a [place] filter at some point he is not currently on aspirin or statin, is not able to give history of why these were not continued after his stroke. Denies history of bleeding problems he Patient was started on baby aspirin on admission Plan DVT prophylaxis: SCDs. Avoid pharmacologic prophylaxis due to thrombocytopenia Diet: Heart healthy CODE STATUS: Full code Likely discharge tomorrow Admission and Anticipated Discharge Date Admission Date: September 06, 2023 Subjective Patient feels better overall. Denies chest pain or shortness of breath. Review of Systems Review of Systems: All systems reviewed & are unremarkable except as noted in Subjective Physical Exam Physical Exam: General: Awake, conversant Heart: S1, S2/regular rate and rhythm, no murmur rubs or gallops Lungs: Clear to auscultation bilaterally. Normal effort Abdomen: Soft/nontender/nondistended. No hepatosplenomegaly Extremities: No clubbing/cyanosis. No edema Behavior: Appropriate, cooperative Results & Data Results & Data Vital Signs (Past 12 Hours) Vital Signs Temp Pulse Pulse Resp BP Pulse Ox O2 Del Method 09/10/23 11:48 36.7 C 66 18 113/73 93 Room Air 09/10/23 08:03 36.7 C 68 18 137/78 93 Room Air 09/10/23 07:30 52 L 09/10/23 03:56 36.6 C 63 16 101/54 L 94 Room Air Laboratory Results Abnormal lab results 09/10/23 Range/Units 08:43 WBC 2.08 L (4.8-10.8) K/ul RBC 3.47 L (4.70-6.10) M/uL Hgb 11.5 L (14.0-18.0) g/dl Hct 34.5 L (42.0-52.0) % RDW Std Deviation 52.7 H (36.4-46.3) fL Plt Count 66 L (130-400) K/uL Chloride 109 H (98-107) mmol/L Glucose 103 H (70-99(Fasting)) mg/dl Calcium 7.8 L (8.6-10.3) mg/dl PG Care Time/CCT Total # of Minutes Spent Total Time Spent with Patient: Total time spent is greater than 50% in coordination of care (as documented) at patient's floor/unit and/or counseling patient: Coding Level of Care Code 96555 SUB INP/OBS CARE 2/35MIN Diagnoses Generalized weakness R53.1 H/O abdominal surgery Z98.890 Elevated troponin R79.89 CKD (chronic kidney disease) stage 3, GFR 30-59 ml/min N18.3 Celiac disease K90.0 Bilateral pulmonary embolism I26.99 Heme positive stool R19.5 History of CVA (cerebrovascular accident) Z86.73
[2023-09-10] MEDS: diphenhydrAMINE Capsule 25 MG CAP PO ONE (20:28)
[2023-09-11 06:54] LABS: Hematocrit (blood only) 29.2 % (42.0-52.0); Hemoglobin 9.7 g/dl (14.0-18.0); Mean Corpuscular Hemoglobin 33.3 pg (25.0-34.0); Mean Corpuscular Hgb Conc 33.2 g/dL (32.0-36.0); Mean Corpuscular Volume 100.3 fL (80.0-100.0); Mean Platelet Volume 11.9 fL (9.4-12.4); Platelet Count 63 K/uL (130-400); RDW Coefficient of Variation 14.5 % (11.5-14.5); Red Blood Count 2.91 M/uL (4.70-6.10); White Blood Count 2.57 K/ul (4.8-10.8)
[2023-09-11 07:07] LABS: BUN Creatinine Ratio 11.5 (10-20); Calcium 7.5 mg/dl (8.6-10.3); Creatinine Clr Calc Pharmacy 64.2 ml/min; Est GFR (African American) 88.7 ml/min; Est GFR (Non-African American) 76.5 ml/min; Potassium 3.8 mmol/L (3.5-5.1)
[2023-09-11 07:43] VITALS: RESP 20; TEMP 97.7; O2SAT 91
[2023-09-11 11:00] VITALS: BP 121/70; PULSE 67
--- NOTE | 2023-09-11 11:15 | Discharge Summary ---
Date of Service September 11, 2023 Admission HPI Per Admitting Provider Prashanth is an 87-year-old male last discharged 02/06/2023 after an admission for mesenteric ischemia on 01/21/2023 with small bowel obstruction internal hernia s/p exploratory laparotomy/small bowel resection/wound VAC placement with prolonged intubation and re ex lap/enterostomy/washout/abdominal wall closure on 01/23/2023 who was ultimately discharged 02/04/2023 to SNF for rehab. During that admission comorbidities were managed by medical team including ELHAM which improved and with suspected underlying CKD 3, BPH on Flomax, heme positive stool in the setting of small bowel infarct for which patient was continued on a PPI twice daily after discharge and started on every other day iron, hyperlipidemia, and hypoxia which gradually improved and for which patient was continued on Lasix for several days. Presents to the ER 09/06/2023 with multiple falls in the prior week. He has had increased fatigue and weakness especially in the last 48 hours, and while denied focal weakness feels so weak that his legs give out from under him. He has struck his head, but has not lost consciousness. He denies abdominal pain, nausea/vomiting, black/bloody stool, chest pain, shortness of breath, fever, cough. Hemoccult is trace heme positive, Per Pt: Extremely weak in the last 7 days, moreso than normal. No lightheadedness, dizziness, SoB, chest pain, or chest pressure. No focal weakness. Legs 'just give out'. 5+ falls int he last week. No LOC, but did hit his head. No extremity pain or pain on weight bearing. 'Usually do well with my walker, I just feel weak all over' Has felt a little feverish last fe days. Currently denies fevers, chills, sweats No SoB, no chest pain or chest pressure. no dysuria. No abdominal pain. Having brown BMs at least once a day. No diarrhea or constipation. 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 He reports that he is not sure why this was done at the time but he does not have bleeding complications, and has not had bleeding the last 2 years and thinks he could be on an anticoagulant if noted. Hemoglobin 12.1, last 8.3. Blood cultures pending Patient is chronically lymphopenic UA is pending; patient does not have urinary symptoms Patient has a transaminitis and which is new, anaplasmosis testing is pending DId not take morning medication including acyclovir, protonix, or flomax. Is not a good historian of meds. Asks to call his Peggy for med rec. No answer on phone, ELIZA left for callback Reports distant history of CVA. Does not take aspirin or plaavis. Takes alieve PM at night to sleep, denies other aspirin or NSAID use. Endorses history of ASD. Full Code Principal Diagnosis Generalized weakness Pancytopenia Possible tickborne illness Discharge Exam General: Awake, conversant Heart: S1, S2/regular rate and rhythm, no murmur rubs or gallops Lungs: Clear to auscultation bilaterally. Normal effort Abdomen: Soft/nontender/nondistended. No hepatosplenomegaly Extremities: No clubbing/cyanosis. No edema Behavior: Appropriate, cooperative Discharge Data Allergies Allergy/AdvReac Type Severity Reaction Status Date / Time gluten Allergy Severe GI SYMPTOMS Verified 06/14/22 21:15 wheat Allergy Severe gi symptoms Verified 06/14/22 21:15 Consultations 09/06/23 12:08 ED Decision to Admit Stat Ordered Studies 09/06/23 10:41 CT abd pelvis IV con only Stat CT head/brain wo con Stat 09/06/23 12:50 US venous doppler [facility] Urgent Hospital Course (1) Generalized weakness: Weakness - 1 week of fatigue, weakness, multipel falls, fevers, chills Per the patient has been generally weak over the last 6 months and that has been gradually declining - Multiple contusions from falls. No syncope. No presyncope, just feels so weak that his legs give out - CThead: No acute process - CXR: No acute findings - CTA/P: No acute findings. Cholelithiasis without cholecystitis. Diverticulosis without diverticulitis. Patient is mildly anemic. This is improved from last of 8.3 in 02/02 Blood cultures negative for 48 hours. Ceftriaxone discontinued. ?Anaplasmosis - New mild transaminitis, leukopenic, thrombocytopenic. Patient has had questionable fevers and does not show any evidence of alternative infectious etiology. Chest x-ray unremarkable, CTA/P unremarkable, no urinary symptoms with UA pending Tickborne panel is pending Given level of illness and higher suspicion for tickborne illness based on labs, will treat empirically with doxycycline twice daily until testing results Repeat LFTs negative History of CVA Patient reports history of CVA with no residual deficits in 2018 At that time he was recommended for anticoagulation with warfarin and aspirin treatment. This was stopped at some point, patient notes he thinks he had a Uriel filter as well for lower extremity clots, but does not know why his anticoagulation was stopped or if he can be on this Records requested from [facility] to help clarify history Echo in 2018 shows a PFO, is at risk for paradoxic stroke If tickborne panel is negative, given that patient is not on an antiplatelet/anticoagulation and is high risk for CVA both by history and with his PFO --> follow-up MRI may be considered. Do not feel this is warranted at this time as he has global but no focal weakness, is mentating normally, and does not show any focal neurologic deficits. ?Nutritional Deficiency - Hx celiac. 2 drinks/per day ETOH with multiple recent ETOH free days and no withdrawal - At risk for malabsorbtive nutritional deficiency -Empiric thiamine added. B12 normal. Pt is on folic acid. Patient has a poor appetite Bilateral lower extremity swelling is most likely due to malnutrition and hypoalbuminemia. Dietitian involved Pancytopenia Ruling out anaplasmosis Treating empirically with doxycycline Improving If not improved after doxycycline course anaplasmosis, may need to be referred to hematology. This will need to be pursued by PCP. (2) H/O abdominal surgery: Recent admission for bowel obstruction, mesenteric ischemia Discharge 02/06/2023.During that admission had ex lap with delayed closure, delayed intubation requiring ICU/pressures, and reex lap/ostomy and delayed closure. Was discharged to SNF and reportedly recovered well Daily bowel movements, abdominal site is well-healed, and abdomen on exam is soft nontender. Is having regular bowel movements Has had some weak heme positive stool but no melena/hematochezia, and has a history of hemorrhoids. Hemoglobin is 12.1 greatly improved from prior. Low suspicion for GI bleed (3) Elevated troponin: Elevated troponin Troponin 55.0. No chest pain. Trended. Suspect demand ischemia No signs of volume overload, small fluid bolus given. Trended EKG unremarkable (4) CKD (chronic kidney disease) stage 3, GFR 30-59 ml/min: Baseline creatinine around 1.1 Creatinine at base Renally dose medications as needed for creatinine clearance of 49 Trend daily (5) Celiac disease: Gluten-free diet (6) Bilateral pulmonary embolism: Per pt More than 5 years ago. He reports that he had a Uriel filter placed in the past for DVT/PE. Denies hx of intracranial bleed, severe GI bleed. Does have mutliple falls - Dopplers negative for acute DVT - Bleeding hx collateral pending from [facility] records (7) Heme positive stool: +history of hemorrhoids No medic easier/melena. Hemoglobin is actually uptrending from prior, 12.1 on admission. Trended. PPI continued (8) History of CVA (cerebrovascular accident): History of CVA in 2018 At that time was noted to have PEs and was recommended for aspirin, anticoagulation, statin. Patient was discharged on warfarin. Unclear when/why this is discharge, patient report he does not know. He does note that he got a Uriel filter at some point he is not currently on aspirin or statin, is not able to give history of why these were not continued after his stroke. Denies history of bleeding problems Patient was started on baby aspirin on admission Plan dc today Total Time Total Time Spent Total Time Spent (In Minutes): 35 Discharge Plan Discharge Items Patient Disposition: Transfer Care Home Fac Reason For Visit: WEAKNESS, FALLS Discharge Diagnosis: Generalized weakness Pancytopenia Possible tickborne illness Condition on Discharge: Fair Activity: As commented below Activity Comment: Per PT/OT recommendation Non-emergency contact: Primary Care Provider Call non-emergency contact if: you have any medication questions and your symptoms worsen Follow-up/Referrals: Nia Newton MD [Primary Care Provider] - Diet: Heart Healthy Addtl Attending Provider Instructions: Advised to follow-up with PCP in 1 week Advised to note that your blood counts are low. If they remain low after treatment with doxycycline, you may need a referral to hematology. This can be arranged by your PCP. Pending Studies at Discharge: Yes Studies:: Anaplasma and Babesia PCR Stand-Alone Forms: My [employer] Interactive Skilled Items Patient informed of condition?: Yes DNR: No Discharge Level of Care: Skilled Communicable Disease: No Discharge Prognosis: Stable Lines: None Urinary Catheter: No Medications and DC Order Prescriptions: New aspirin 81 mg Tablet,Delayed Release (Dr/Ec) 81 mg PO DAILY Qty: 30 0RF doxycycline hyclate 100 mg Capsule 100 mg PO BID 5 Days Qty: 10 0RF Continued acyclovir 400 mg Tablet 400 mg PO DAILY 90 Days Qty: 90 gabapentin 400 mg capsule 400 mg PO TID [facility] 750 mg-100 mg- 1.65 mg-108 mg tablet 1 tab PO DAILY folic acid 1 mg Tablet 1 mg PO QAM Lumigan 0.01 % Drops 1 drp OPHTHALMIC (EYE) PM ketoconazole 2 % cream 1 applic TOPICAL DIRECTED PRN (Reason: Skin Irritation) pantoprazole 40 mg tablet,delayed release (DR/EC) 40 mg PO BID Pancreaze 10,500-35,500- 61,500 unit capsule,delayed release(DR/EC) See Rx Instructions .ROUTE .COMPLEX Rx Instructions: TAKES 2 CAPS QAM, THEN 1 CAP QPM. atorvastatin 40 mg tablet 40 mg PO HS tamsulosin 0.4 mg capsule 0.4 mg PO DAILY vitamin A-vitamin C-vit E-min Tablet 1 tab PO DAILY melatonin 5 mg Tablet 5 mg PO HS PRN (Reason: Sleep) MegaRed [place]-3 Krill Oil 1 cap PO DAILY Discharge Orders: Discharge Order (Routine); Ordered 09/11/23 Ordered By: Star Ramos Admission Data Admit Date/Time: 09/06/23 12:50 Attending Provider: Star Ramos Admit Provider: Richardson Christian Primary Care Provider: Nia Newton Other Providers: Richardson Christian; [place] Other Interventions: Discharge Summary Assessment (RN) Last Done: 09/11/23 11:00 Coding Level of Care Code 46945 INP/OBS DISCH >30 MIN Diagnoses Generalized weakness R53.1 H/O abdominal surgery Z98.890 Elevated troponin R79.89 CKD (chronic kidney disease) stage 3, GFR 30-59 ml/min N18.3 Celiac disease K90.0 Bilateral pulmonary embolism I26.99 Heme positive stool R19.5 History of CVA (cerebrovascular accident) Z86.73
== END 2023-09-11 15:42 | DRG 866 ==
LOC: ED 10:29 → 2W 12:50 → SUATTDRO 12:50 → 2W 14:31